=== PATIENT | female | born 1960 | race Caucasian/White ===

== ENCOUNTER 2016-12-23 07:11 | Emergency (ER) | payer BC, OTHER ==
[~2016-12-23 07:11] MED LIST: ASPI81TA45 PO; CALCIUM + VITAMIN D PO; FISH600C PO; MELO15TA4 PO; NICO14DI3 TD; PLAV75TA38 PO; SIMV40TA2 PO
[2016-12-23] MEDS ORDERED: IPRATROPIUM 0.5MG/ALBUTEROL 2.5MG INH SOL UD 3ML (DUONEB)(J7620) As Ordered ONE ×2 (10:08→13:38)
[2016-12-23 10:30] LABS: BASO # 0.1 K/mm3 (0.0-0.2); BASO % 0.6 % (0.0-1.0); EOS # 0.2 K/mm3 (0.0-0.50); EOS % 1.9 % (0.0-3.0); LARGE UNSTAINED CELL # 0.2 K/mm3 (0.0-0.4); LARGE UNSTAINED CELL % 2.1 % (0.0-4.0); LYMPH # 1.7 K/mm3 (1.5-4.5); LYMPH % 16.6 % (24.0-44.0); MEAN CORPUSCULAR HEMOGLOBIN 30.5 pg (27.0-33.0); MEAN CORPUSCULAR HGB CONC 32.3 g/dl (32.0-36.5); MEAN CORPUSCULAR VOLUME 94.4 fl (80.0-96.0); MONO # 0.6 K/mm3 (0.0-0.8); MONO % 6.2 % (0.0-5.0); NEUTROPHILS # 7.3 K/mm3 (1.8-7.7); NEUTROPHILS % 72.7 % (36.0-66.0); PLATELET COUNT, AUTOMATED 279 k/mm3 (150-450); RED CELL DISTRIBUTION WIDTH 13.6 % (11.5-14.5); WHITE BLOOD COUNT 10.1 K/mm3 (4.0-10.0)
[2016-12-23] MEDS ORDERED: methylPREDNISolone INJ 125 MG/2 ML VIAL (J2930) As Ordered ONE (10:57)
[2016-12-23 11:19] LABS: ANION GAP 9 MEQ/L (8-16); BLOOD UREA NITROGEN 12 MG/DL (7-18); CALCIUM LEVEL 9.4 MG/DL (8.5-10.1); CARBON DIOXIDE LEVEL 28 MEQ/L (21-32); CHLORIDE LEVEL 106 MEQ/L (98-107); CREATININE FOR GFR 0.71 MG/DL (0.55-1.02); GLOMERULAR FILTRATION RATE > 60.0 (>51); GLUCOSE, FASTING 105 MG/DL (70-105); SODIUM LEVEL 143 MEQ/L (136-145)
--- NOTE | 2016-12-23 13:26 | REP ---
Chest x-ray: Two views. History: Shortness of breath. Findings: EKG monitoring electrodes overlie the chest. The heart is not enlarged. The aorta is somewhat tortuous. Pulmonary vasculature is not increased. No infiltrate is seen. Pleural angles are sharp. Impression: No active disease. Signed by Eric Quinn MD 12/23/2016 01:26 P
[2016-12-23] MEDS ORDERED: ALBUTEROL 90 MCG/ACT 8GM HFA INHALER As Ordered ONE (15:05)
--- NOTE | 2016-12-23 15:37 | EDDOCDS ---
Physician Documentation [facility] Name: Lily Hernandez Age: 56 yrs Sex: Female : 1960 Arrival Date: 12/23/2016 Time: 07:11 Bed TR3 Private MD: Disposition: 12/23 15:00 Critical Care:. pc Disposition: 12/23/16 15:02 Discharged to Home/Self Care. Impression: Chronic obstructive pulmonary disease with (acute) exacerbation. - Condition is Stable. - Discharge Instructions: Chronic Obstructive Pulmonary Disease, Metered Dose Inhaler with Spacer. - Prescriptions for Prednisone 20 mg Oral Tablet - take 1 tablet by ORAL route as directed Day 1-3: 3 po, day 4-7: 2 po, day 8-10: 1 po; 20 tablet. Albuterol Sulfate 90 mcg/actuation Inhalation HFA Aerosol Inhaler - inhale 2 puff by INHALATION route every 4 hours As needed; 1 Inhaler. - Medication Reconciliation, Local Pharmacy Hours form. - Follow up: [facility]; When: Call to arrange an appointment; Reason: Continuance of care. - Problem is an acute exacerbation. - Symptoms have improved. HPI: 09:53 This 56 yrs old Female presents to ER via Walkin/Carried/Asstd with pc complaints of Cough. 09:53 The history is obtained from the patient, the patient's spouse. She developed a cough pc and sinus congestion 2 weeks ago, without fever or chills, was seen by an urgent care and started on ABX and Tessalon Perles without effect. She continues to have a nonproductive cough and feels SOBOE. She is a former smoker, stopping 1 year ago without prior diagnosis of COPD. At their worst, the symptoms were mild. In the emergency department, the symptoms are unchanged. The patient has not experienced similar symptoms in the past. Historical: - Allergies: No known drug Allergies; - Home Meds: 1. atorvastatin 40 mg oral tab 1 tab once daily 2. metoprolol succinate 25 mg Tb24 1 tab once daily 3. hydrochlorothiazide 12.5 mg Oral tab 1 tab once daily 4. clopidogrel 75 mg oral tab 1 tab once daily 5. fluticasone 50 mg 1 spray each nostril twice daily 6. aspirin 81 mg oral tab once daily 7. Augmentin 875-125 mg Oral tab every 12 hours 8. benzonatate 100 mg oral cap 1 cap 3 times per day as needed (Last dose: 12/22/2016 16:00) - PMHx: Hypertension; Hypercholesterolemia; CVA; - PSHx: ; Uterine biopsy; right hipr eplacement; - The history from nurses notes was reviewed: and elements of the historical information I have obtained differs from that reported to nursing. - Social history: Smoking status: Patient states former smoker of tobacco. No barriers to communication noted, The patient speaks fluent Romanian. - : The pt / caregiver states he / she is on anticoagulants: Plavix. Home medication list is obtained from the patient, [place] import data, pill bottles. - Hospitalizations: : No recent hospitalization is reported. - Exposure Risk Screening:: None identified. - Immunization history:: All immunizations up-to-date. - Family history: Not pertinent. - Social history:: the patient is a former smoker, the patient drinks alcohol. ROS: 09:53 All systems are negative except as listed. pc Exam: 09:53 General Appearance: no acute distress, alert. pc 09:53 EENT: normal eye inspection, ears, nose and throat normal, pharynx normal, mucous membranes moist 09:53 Neck: The exam reveals no acute abnormalities. ROM is normal and painless. No nuchal rigidity is noted.. 09:53 Respiratory: no respiratory distress, Breath sounds: wheezing, throughout, Decreased breath sounds, in the left posterior lower lobe and right posterior lower lobe. 09:53 CVS: regular pulse rate, regular rhythm, normal S1 and S2, no murmurs, strong peripheral pulses, normal capillary refill. 09:53 Abdomen: soft, non-tender, no organomegaly, normal bowel sounds. 09:53 Back: normal inspection. 09:53 Skin: skin color is normal, warm, dry. 09:53 Extremities: The extremities have a grossly normal appearance, are non-tender, without acute ROM abnormalities, no pedal edema. 09:53 Neuro: oriented x 3, cranial nerves normal as tested, no motor deficits, no sensory deficits. 09:53 Psych: normal mood. Vital Signs: 07:59 BP 149 / 95; Pulse 82; Resp 22; Temp 97.4(O); Pulse Ox 90% on R/A; Weight 106.14 kg / kcs 234 lbs (R); Height 5 ft. 7 in. (170.18 cm) (R); Pain 0/10; 08:22 BP 188 / 93 (auto/); mk4 08:24 Pulse 64 MON; Pulse Ox 93% ; mk4 08:36 Pulse 64 MON; Pulse Ox 93% ; mk4 08:37 BP 181 / 84 (auto/); mk4 08:52 BP 204 / 88 (auto/); mk4 08:52 Pulse 58 MON; Pulse Ox 91% ; mk4 09:06 Pulse 72 MON; Pulse Ox 92% ; mk4 09:07 BP 206 / 100 (auto/); mk4 09:22 Pulse 66 MON; Pulse Ox 91% ; mk4 09:22 BP 204 / 88 (auto/); mk4 09:37 BP 171 / 77 (auto/); mk4 09:37 Pulse 70 MON; Pulse Ox 93% ; mk4 10:52 BP 135 / 64 (auto/); mk4 10:54 Pulse 76 MON; Pulse Ox 94% ; mk4 11:07 BP 143 / 76 (auto/); mk4 11:07 Pulse 100 MON; Pulse Ox 98% ; mk4 11:22 BP 141 / 72 (auto/); mk4 11:22 Pulse 60 MON; Pulse Ox 97% ; mk4 11:36 Pulse 58 MON; Pulse Ox 96% ; mk4 11:37 BP 161 / 81 (auto/); mk4 11:52 BP 136 / 62 (auto/); mk4 11:52 Pulse 58 MON; Pulse Ox 95% ; mk4 12:07 BP 129 / 60 (auto/); mk4 12:07 Pulse 74 MON; Pulse Ox 96% ; mk4 12:22 BP 136 / 65 (auto/); mk4 12:22 Pulse 70 MON; Pulse Ox 95% ; mk4 12:37 BP 132 / 64 (auto/); mk4 12:37 Pulse 68 MON; Pulse Ox 95% ; mk4 12:52 BP 118 / 58 (auto/); mk4 12:52 Pulse 72 MON; Pulse Ox 94% ; mk4 13:07 BP 128 / 61 (auto/); mk4 13:07 Pulse 68 MON; Pulse Ox 90% ; mk4 13:22 BP 152 / 79 (auto/); mk4 13:22 Pulse 66 MON; Pulse Ox 89% ; mk4 13:37 BP 159 / 91 (auto/); mk4 13:37 Pulse 68 MON; Pulse Ox 95% ; mk4 13:52 BP 149 / 70 (auto/); mk4 13:52 Pulse 82 MON; Pulse Ox 100% ; mk4 14:07 BP 151 / 70 (auto/); mk4 14:07 Pulse 96 MON; Pulse Ox 98% ; mk4 14:52 BP 154 / 54 (auto/); mk4 15:00 Pulse 102 MON; Resp 22; Temp 97.8(O); Pulse Ox 93% ; mk4 07:59 Body Mass Index 36.65 (106.14 kg, 170.18 cm) kcs MDM: 09:41 -Blood Culture (Adults Only), peripheral from different site, or from device/port/PICC pc etc. if present ordered. 09:41 Waiter/Waitress Cabin Class/Pulse Ox/q 15 min VS ordered. pc 09:41 IV Saline Lock ordered. pc 09:41 Rhythm Strip to chart ordered. pc 09:41 Oxygen 2L via NC, titrate to maintain PO >95% ordered. pc 09:41 Solu-MEDROL 125 mg IVP once ordered. pc 09:41 Albuterol-Ipratropium 1 neb Nebulizer every 20 minutes x3 ordered. pc 09:41 Call Respiratory ordered. pc 09:41 Obtain sample by nasopharyngeal swab ordered. pc 09:41 B-Type Natiuretic Peptide Ordered. EDMS 09:41 Basic Metabolic Profile Ordered. EDMS 09:41 CBC with Diff Ordered. EDMS 09:41 Cardiac Injury Profile Ordered. EDMS 09:42 Troponin Ordered. EDMS 09:42 -Blood Culture Ordered. EDMS 09:42 Chest, 2 View (pa\E\lat) Ordered. EDMS 09:42 ECG WITH READING ER PHYS+CARDIAG ordered. EDMS 09:42 -Influenza A&B Rapid Antigen - Nose Ordered. EDMS 09:42 Call Respiratory complete. jlf 09:44 -Blood Culture (Adults Only), peripheral from different site, or from device/port/PICC jlf etc. if present complete. 09:46 BLOOD CULTURES Ordered. EDMS 09:53 Differential Diagnosis: bronchitis with bronchospasm, r/o COPD or pneumonia. Plan: pc meds, nebs, EKG, imaging, labs. 09:58 Test interpretation: EKG. pc 10:44 [facility] Payment Agreement was scanned into Pocket Change Card and attached to record. jp5 10:44 Financial registration complete. jp5 10:53 CBC with Diff Reviewed. pc 10:53 B-Type Natiuretic Peptide Reviewed. pc 10:53 -Influenza A&B Rapid Antigen - Nose Reviewed. pc 11:33 Basic Metabolic Profile Reviewed. pc 11:33 Cardiac Injury Profile Reviewed. pc 11:33 Troponin Reviewed. pc 13:21 Albuterol-Ipratropium 1 neb Nebulizer every 20 minutes x3 ordered. pc 13:21 Call Respiratory ordered. pc 13:23 Call Respiratory complete. mk4 15:00 Data reviewed: old medical records, vital signs, nurses notes, lab test results, all pc radiology studies and available results. Test interpretation: LAB - all labs as ordered have been reviewed, interpreted and considered in the overall management of the clinical presentation; X-RAY - interpreted by Radiologist and personally reviewed, 2 view chest, chronic obstructive pulmonary disease pattern. The patient has been re-examined and re-evaluated. The patient's symptoms have markedly improved after treatment, with her PO at 96% at rest, her air entry normal and only an occasional wheeze at the bases. Disposition: The historical points, examination findings, and any diagnostic results supporting the provided diagnosis, were discussed with the patient or legal guardian. The need for outpatient follow up with the provider listed on their discharge instructions was discussed. They were encouraged to return to [facility], or the nearest ED, if symptoms worsen/persist, or for any other questions/concerns. 15:03 MDI teaching with Spacer ordered. pc 15:03 Ventolin Inhaler 2 puffs Inhalation once ordered. EC:58 Rate is 67 beats/min. Rhythm is regular, Normal Sinus Rhythm. QRS [place] is Normal. [place] pc interval is normal. QRS interval is normal. QT interval is normal. No Q waves. T waves are Normal. ST Segment is elevated in leads I, II, III, aVL, aVF, V4, V5, V6. Clinical impression: Normal Sinus Rhythm and ST-T changes consistent with early repolarization. Administered Medications: 10:15 Drug: Albuterol-Ipratropium 1 neb [ipratropium-albuterol 0.5 mg-3 mg(2.5 mg base)/3 mL js11 nebulization soln (1 neb)] Route: Nebulizer; 10:30 Drug: Solu-MEDROL 125 mg [Solu-Medrol 500 mg intravenous solution (125 mg)] Route: IVP; mk4 Site: left antecubital; 10:35 Drug: Albuterol-Ipratropium 1 neb [ipratropium-albuterol 0.5 mg-3 mg(2.5 mg base)/3 mL js11 nebulization soln (1 neb)] Route: Nebulizer; 10:50 Drug: Albuterol-Ipratropium 1 neb [ipratropium-albuterol 0.5 mg-3 mg(2.5 mg base)/3 mL js11 nebulization soln (1 neb)] Route: Nebulizer; 13:42 Drug: Albuterol-Ipratropium 1 neb [ipratropium-albuterol 0.5 mg-3 mg(2.5 mg base)/3 mL cs15 nebulization soln (1 neb)] Route: Nebulizer; 14:01 Drug: Albuterol-Ipratropium 1 neb [ipratropium-albuterol 0.5 mg-3 mg(2.5 mg base)/3 mL cs15 nebulization soln (1 neb)] Route: Nebulizer; 14:13 Drug: Albuterol-Ipratropium 1 neb [ipratropium-albuterol 0.5 mg-3 mg(2.5 mg base)/3 mL cs15 nebulization soln (1 neb)] Route: Nebulizer; 15:14 Drug: Ventolin 2 puffs [Ventolin HFA 90 mcg/actuation aerosol inhaler (2 puffs)] Route: 4 Inhalation; Critical Care Time: 15:00 Critical care time: Bedside Care: 30 minutes, Family Intervention: 10 minutes. Total pc time: 40 minutes Signatures: Dispatcher [employer] EDTeddy Finney MD MD pc Sleeman, Kacey, RN RN kcs King, Margaret, RN RN mk4 Jolie Vale PCA PCA jlf Price, Jennalee jp5 Basilio Blount js11 Jose Bruno RT cs15 The chart was reviewed and I authenticate all verbal orders and agree with the evaluation and treatment provided.Corrections: (The following items were deleted from the chart) 08:26 07:59 The pt / caregiver states he / she is not on anticoagulants. pablo shah 09:57 07:59 PMHx: CAD; pablo pc Attachments: 10:44 [facility] Payment Agreement jp5 MTDD
--- NOTE | 2016-12-23 15:37 | EDDOCDS ---
Nurse's Notes [facility] Name: Lily Hernandez Age: 56 yrs Sex: Female : 1960 Arrival Date: 12/23/2016 Time: 07:11 Bed TR3 Private MD: Diagnosis: Chronic obstructive pulmonary disease with (acute) exacerbation Presentation: 12/23 07:50 Presenting complaint: Patient states: she has had a cough for 2 weeks - was at [facility] - started on antibiotics and cough meds - diagnosed with URI and sinusitis - last night had more difficulty breathing and chest heaviness - feels like she is not getting any better. Adult Sepsis Screening: The patient does not have new or worsening altered mentation. Patient has a respiratory rate of greater than or equal to 22 (1 point). Systolic blood pressure is greater than 100. Patient has a qSOFA score of 0- Negative Sepsis Screen. Suicide/Homicide risk assessment- the patient denies having any suicidal and/or homicidal ideations and does not present with any other emotional, behavioral or mental health complaints. Status: Patient is not a health services administrator or dependent. Transition of care: patient was not received from another setting of care. 07:50 Method Of Arrival: Walkin/Carried/Asstd kcs 07:59 Acuity: PJ Level 3 kcs Triage Assessment: 07:59 General: Appears comfortable, well developed, well nourished, well groomed, Behavior is kcs cooperative, pleasant. Pain: Denies pain. HIV screening NA for this visit Offered previously. Neurological: Level of Consciousness is awake, alert. Respiratory: Airway is patent Respiratory effort is even, unlabored, Respiratory pattern is regular, symmetrical. Derm: Skin is intact, is healthy with good turgor, Skin is dry, Skin is normal. Historical: - Allergies: No known drug Allergies; - Home Meds: 1. atorvastatin 40 mg oral tab 1 tab once daily 2. metoprolol succinate 25 mg Tb24 1 tab once daily 3. hydrochlorothiazide 12.5 mg Oral tab 1 tab once daily 4. clopidogrel 75 mg oral tab 1 tab once daily 5. fluticasone 50 mg 1 spray each nostril twice daily 6. aspirin 81 mg oral tab once daily 7. Augmentin 875-125 mg Oral tab every 12 hours 8. benzonatate 100 mg oral cap 1 cap 3 times per day as needed (Last dose: 12/22/2016 16:00) - PMHx: Hypertension; Hypercholesterolemia; CVA; - PSHx: ; Uterine biopsy; right hipr eplacement; - The history from nurses notes was reviewed: and elements of the historical information I have obtained differs from that reported to nursing. - Social history: Smoking status: Patient states former smoker of tobacco. No barriers to communication noted, The patient speaks fluent Angolan. - : The pt / caregiver states he / she is on anticoagulants: Plavix. Home medication list is obtained from the patient, [place] import data, pill bottles. - Hospitalizations: : No recent hospitalization is reported. - Exposure Risk Screening:: None identified. - Immunization history:: All immunizations up-to-date. - Family history: Not pertinent. - Social history:: the patient is a former smoker, the patient drinks alcohol. Screenin:11 Screening information is obtained from the patient. Fall risk: No risks identified. mk4 Assistance ADL's: requires no assistance with activities of daily living. Abuse/DV Screen: The patient / caregiver reports he/she is: not in a situation that causes fear, pain or injury. Nutritional screening: No deficits noted. Advance Directives: Currently, there is no health care proxy. There is no active DNR order. There is There is no Power of Trim Mechanic. Advance directive information has not previously been placed in an [facility] medical record. Further advance directive information is declined. home support is adequate. Assessment: 09:00 General: Appears in no apparent distress. Pain: Denies pain. Respiratory: Airway is mk4 patent Respiratory effort is even, labored, Respiratory pattern is regular, Reports cough that is non-productive, hacking, persistent since 8-9 days ago oxygen applied at 2 l nc. 11:09 General: Appears in no apparent distress. Respiratory: Airway is patent Respiratory mk4 effort is labored, Respiratory pattern is regular, Breath sounds with rhonchi inspiratory expiratory bilaterally. 11:09 Neurological: Level of Consciousness is awake, Oriented to person, place, time. mk4 Respiratory: Reports cough that is non-productive, since 9 days ago. Derm: Skin is intact, is healthy with good turgor, Skin is pink, warm & dry. 13:00 General: Appears in no apparent distress, comfortable, Behavior is cooperative. mk4 Respiratory: Airway is patent Respiratory effort is even. 13:25 General: Appears in no apparent distress, oxygen removed and pt sao2 dropped to 88 % mk4 oxygen placed back on Dr Sadler at bedside and aware. 14:22 General: Appears in no apparent distress, comfortable. Respiratory: Airway is patent mk4 Respiratory effort is labored, Respiratory pattern is regular, tachypnea. 14:42 General: Appears in no apparent distress, comfortable. mk4 15:32 General: Appears in no apparent distress, comfortable, Behavior is cooperative. mk4 Respiratory: Airway is patent Respiratory effort is even, unlabored, oxygen level 94-95 on room air after second set of nebs, albuterol neb with spacer instructions provided. Vital Signs: 07:59 BP 149 / 95; Pulse 82; Resp 22; Temp 97.4(O); Pulse Ox 90% on R/A; Weight 106.14 kg kcs (R); Height 5 ft. 7 in. (170.18 cm) (R); Pain 0/10; 08:22 BP 188 / 93 (auto/); mk4 08:24 Pulse 64 MON; Pulse Ox 93% ; mk4 08:36 Pulse 64 MON; Pulse Ox 93% ; mk4 08:37 BP 181 / 84 (auto/); mk4 08:52 BP 204 / 88 (auto/); mk4 08:52 Pulse 58 MON; Pulse Ox 91% ; mk4 09:06 Pulse 72 MON; Pulse Ox 92% ; mk4 09:07 BP 206 / 100 (auto/); mk4 09:22 Pulse 66 MON; Pulse Ox 91% ; mk4 09:22 BP 204 / 88 (auto/); mk4 09:37 BP 171 / 77 (auto/); mk4 09:37 Pulse 70 MON; Pulse Ox 93% ; mk4 10:52 BP 135 / 64 (auto/); mk4 10:54 Pulse 76 MON; Pulse Ox 94% ; mk4 11:07 BP 143 / 76 (auto/); mk4 11:07 Pulse 100 MON; Pulse Ox 98% ; mk4 11:22 BP 141 / 72 (auto/); mk4 11:22 Pulse 60 MON; Pulse Ox 97% ; mk4 11:36 Pulse 58 MON; Pulse Ox 96% ; mk4 11:37 BP 161 / 81 (auto/); mk4 11:52 BP 136 / 62 (auto/); mk4 11:52 Pulse 58 MON; Pulse Ox 95% ; mk4 12:07 BP 129 / 60 (auto/); mk4 12:07 Pulse 74 MON; Pulse Ox 96% ; mk4 12:22 BP 136 / 65 (auto/); mk4 12:22 Pulse 70 MON; Pulse Ox 95% ; mk4 12:37 BP 132 / 64 (auto/); mk4 12:37 Pulse 68 MON; Pulse Ox 95% ; mk4 12:52 BP 118 / 58 (auto/); mk4 12:52 Pulse 72 MON; Pulse Ox 94% ; mk4 13:07 BP 128 / 61 (auto/); mk4 13:07 Pulse 68 MON; Pulse Ox 90% ; mk4 13:22 BP 152 / 79 (auto/); mk4 13:22 Pulse 66 MON; Pulse Ox 89% ; mk4 13:37 BP 159 / 91 (auto/); mk4 13:37 Pulse 68 MON; Pulse Ox 95% ; mk4 13:52 BP 149 / 70 (auto/); mk4 13:52 Pulse 82 MON; Pulse Ox 100% ; mk4 14:07 BP 151 / 70 (auto/); mk4 14:07 Pulse 96 MON; Pulse Ox 98% ; mk4 14:52 BP 154 / 54 (auto/); mk4 15:00 Pulse 102 MON; Resp 22; Temp 97.8(O); Pulse Ox 93% ; mk4 07:59 Body Mass Index 36.65 (106.14 kg, 170.18 cm) [facility] Vitals: 07:59 Log In Time: December 23, 2016 at 07:13. kcs ED Course: 07:12 Patient visited by Comfort Faith Reg. hs2 07:12 Patient moved to Waiting hs2 07:53 Triage Initiated kcs 08:02 Patient moved to 15 kcs 08:25 Patient visited by Laura Chavez PCA. ct3 08:58 Patient visited by Radha Feldman RN. mk4 08:58 Teddy Sadler MD is Attending Physician. pc 09:00 The patient / caregiver is instructed regarding the plan of care and ED course. Cardiac mk4 monitor on. Pulse ox on. NIBP on. 09:00 Inserted saline lock: 20 gauge in right wrist. mk4 09:33 Patient visited by Teddy Sadler MD. pc 09:57 Patient visited by Santa Manjarrez. lr2 09:57 EKG done. (by ED staff). Reviewed by Teddy Sadler MD. lr2 10:11 -Influenza A&B Rapid Antigen - Nose Sent. mk4 10:11 -Blood Culture Sent. mk4 10:11 B-Type Natiuretic Peptide Sent. mk4 10:11 Basic Metabolic Profile Sent. mk4 10:11 CBC with Diff Sent. mk4 10:11 Cardiac Injury Profile Sent. mk4 10:11 Troponin Sent. mk4 10:42 Patient visited by Radha Feldman, DAVID. mk4 10:44 [facility] Payment Agreement was scanned into [employer] and attached to record. jp5 10:51 BLOOD CULTURES Sent. ct3 11:12 Patient visited by Laura Chavez PCA. ct3 11:48 Patient visited by Radha Feldman, DAVID. mk4 12:19 Patient visited by Radha Feldman RN. mk4 12:54 Patient visited by Radha Feldman RN. mk4 13:25 Patient visited by Radha Feldman RN. mk4 13:37 Chest, 2 View (pa\E\lat) Returned. EDMS 14:13 Patient visited by Antionette Sarmiento RN. srm 15:00 Discontinued IV lock bleeding controlled, pressure dressing applied. No procedures done mk4 that require assistance. 15:01 [facility] Emerita Grey is Referral Physician. pc 15:34 Patient moved to TR3 mdr Administered Medications: 10:15 Drug: Albuterol-Ipratropium 1 neb [ipratropium-albuterol 0.5 mg-3 mg(2.5 mg base)/3 mL js11 nebulization soln (1 neb)] Route: Nebulizer; 10:30 Drug: Solu-MEDROL 125 mg [Solu-Medrol 500 mg intravenous solution (125 mg)] Route: IVP; mk4 Site: left antecubital; 10:35 Drug: Albuterol-Ipratropium 1 neb [ipratropium-albuterol 0.5 mg-3 mg(2.5 mg base)/3 mL js11 nebulization soln (1 neb)] Route: Nebulizer; 10:50 Drug: Albuterol-Ipratropium 1 neb [ipratropium-albuterol 0.5 mg-3 mg(2.5 mg base)/3 mL js11 nebulization soln (1 neb)] Route: Nebulizer; 13:42 Drug: Albuterol-Ipratropium 1 neb [ipratropium-albuterol 0.5 mg-3 mg(2.5 mg base)/3 mL cs15 nebulization soln (1 neb)] Route: Nebulizer; 14:01 Drug: Albuterol-Ipratropium 1 neb [ipratropium-albuterol 0.5 mg-3 mg(2.5 mg base)/3 mL cs15 nebulization soln (1 neb)] Route: Nebulizer; 14:13 Drug: Albuterol-Ipratropium 1 neb [ipratropium-albuterol 0.5 mg-3 mg(2.5 mg base)/3 mL cs15 nebulization soln (1 neb)] Route: Nebulizer; 15:14 Drug: Ventolin 2 puffs [Ventolin HFA 90 mcg/actuation aerosol inhaler (2 puffs)] Route: mk4 Inhalation; Intake: 12:06 PO: 240.00ml (Coffee); Total: 240.00ml. lr2 RT: 10:15 Initial Med Neb Given as ordered Patient was instructed and evaluated on procedure js11 Patient tolerated procedure well without adverse effect. Oxygen is room air. Respiratory: Breath sounds with wheezes bilaterally. at expiration. 10:35 Subsequent Med Neb Given as ordered Patient tolerated procedure well without adverse js11 effect. Respiratory: Breath sounds with wheezes bilaterally. at expiration. 10:50 Subsequent Med Neb Given as ordered Patient tolerated procedure well without adverse js11 effect. Respiratory: Breath sounds with wheezes bilaterally. at expiration. 13:42 Subsequent Med Neb Given as ordered. O2 via nasal cannula \T\ 2L/min. Respiratory: Breath cs15 sounds with crackles in left posterior lower lobe and right posterior lower lobe Breath sounds with wheezes bilaterally. at expiration. 14:13 Respiratory: Breath sounds with crackles in left posterior lower lobe and right cs15 posterior lower lobe. Order Results: Lab Order: B-Type Natiuretic Peptide; SPEC'M 12/23/16 09:48 Test: BRAIN NATRIURETIC PEPTIDE; Value: 36.7; Range: <100; Units: PG/ML; Status: F Lab Order: Basic Metabolic Profile; SPEC'M 12/23/16 10:49 Test: GLUCOSE, FASTING; Value: 105; Range: 70-105; Units: MG/DL; Status: F Test: BLOOD UREA NITROGEN; Value: 12; Range: 7-18; Units: MG/DL; Status: F Test: CREATININE FOR GFR; Value: 0.71; Range: 0.55-1.02; Units: MG/DL; Status: F Test: GLOMERULAR FILTRATION RATE; Value: > 60.0; Range: >51; Status: F Test: SODIUM LEVEL; Value: 143; Range: 136-145; Units: MEQ/L; Status: F Test: POTASSIUM SERUM; Value: 4.0; Range: 3.5-5.1; Units: MEQ/L; Status: F Test: CHLORIDE LEVEL; Value: 106; Range: 98-107; Units: MEQ/L; Status: F Test: CARBON DIOXIDE LEVEL; Value: 28; Range: 21-32; Units: MEQ/L; Status: F Test: ANION GAP; Value: 9; Range: 8-16; Units: MEQ/L; Status: F Test: CALCIUM LEVEL; Value: 9.4; Range: 8.5-10.1; Units: MG/DL; Status: F Test Note: ; Units are mL/min/1.73 m2 Chronic Kidney Disease Staging per NKF: Stage I & II GFR >=60 Normal to Mildly Decreased Stage III GFR 30-59 Moderately Decreased Stage IV GFR 15-29 Severely Decreased Stage V GFR <15 Very Little GFR Left ESRD GFR <15 on UNDERWRITING SERVICE REPRESENTATIVE Lab Order: CBC with Diff; SPEC'M 12/23/16 09:48 Test: WHITE BLOOD COUNT; Value: 10.1; Range: 4.0-10.0; Abnormal: Above high normal; Units: K/mm3; Status: F Test: RED BLOOD COUNT; Value: 4.86; Range: 4.00-5.40; Units: M/mm3; Status: F Test: HEMOGLOBIN; Value: 14.9; Range: 12.0-16.0; Units: g/dl; Status: F Test: HEMATOCRIT; Value: 45.9; Range: 36.0-47.0; Units: %; Status: F Test: MEAN CORPUSCULAR VOLUME; Value: 94.4; Range: 80.0-96.0; Units: fl; Status: F Test: MEAN CORPUSCULAR HEMOGLOBIN; Value: 30.5; Range: 27.0-33.0; Units: pg; Status: F Test: MEAN CORPUSCULAR HGB CONC; Value: 32.3; Range: 32.0-36.5; Units: g/dl; Status: F Test: RED CELL DISTRIBUTION WIDTH; Value: 13.6; Range: 11.5-14.5; Units: %; Status: F Test: PLATELET COUNT, AUTOMATED; Value: 279; Range: 150-450; Units: k/mm3; Status: F Test: NEUTROPHILS %; Value: 72.7; Range: 36.0-66.0; Abnormal: Above high normal; Units: %; Status: F Test: LYMPH %; Value: 16.6; Range: 24.0-44.0; Abnormal: Below low normal; Units: %; Status: F Test: MONO %; Value: 6.2; Range: 0.0-5.0; Abnormal: Above high normal; Units: %; Status: F Test: EOS %; Value: 1.9; Range: 0.0-3.0; Units: %; Status: F Test: BASO %; Value: 0.6; Range: 0.0-1.0; Units: %; Status: F Test: LARGE UNSTAINED CELL %; Value: 2.1; Range: 0.0-4.0; Units: %; Status: F Test: NEUTROPHILS #; Value: 7.3; Range: 1.8-7.7; Units: K/mm3; Status: F Test: LYMPH #; Value: 1.7; Range: 1.5-4.5; Units: K/mm3; Status: F Test: MONO #; Value: 0.6; Range: 0.0-0.8; Units: K/mm3; Status: F Test: EOS #; Value: 0.2; Range: 0.0-0.50; Units: K/mm3; Status: F Test: BASO #; Value: 0.1; Range: 0.0-0.2; Units: K/mm3; Status: F Test: LARGE UNSTAINED CELL #; Value: 0.2; Range: 0.0-0.4; Units: K/mm3; Status: F Lab Order: Cardiac Injury Profile; SPEC'M 12/23/16 10:49 Test: CPK CREATINE PHOSPHOKINASE; Value: 152; Range: 26-192; Units: U/L; Status: F Test: CK-MB VALUE MASS; Value: 2.1; Range: 0.0-3.6; Units: NG/ML; Status: F Test: MB/CK RELATIVE INDEX; Value: 1.38; Range: < OR =4; Status: F Test Note: ; DIAGNOSIS CRITERIA MMB ng/ml Relative Index (RI) NON-AMI < or = 5 N/A FORD ZONE > 5 < or = 4 AMI > 5 > 4 Lab Order: Troponin; SPEC'M 12/23/16 10:49 Test: TROPONIN I; Value: < 0.02; Range: < 0.10; Units: NG/ML; Status: F Test Note: ; Troponin I Reference Interval for Mobile [employer] 7 LOCI: 99th Percentile= 0.00-0.045 ng/ml Risk Stratification: <= 0.10 ng/ml Decreased Risk for Adverse Clinical Events. 0.10-1.50 ng/ml Increased Risk for Adverse Clinical Events. Evaluation of additional criterion and/or repeat testing in 2-6 hours is suggested to rule out myocardial damage. >= 1.50 ng/ml Indicative of Myocardial Injury. Lab Order: -Influenza A&B Rapid Antigen - Nose; SPEC'M 12/23/16 09:53 Test: INFLUENZA A RAPID SCR by ICA; Value: INFLUENZA A RESULTS NEGATIVE; Status: F Test: INFLUENZA A RAPID SCR by ICA; Value: Comments:; Status: F Test: INFLUENZA B RAPID SCR by ICA; Value: INFLUENZA B RESULTS NEGATIVE; Status: F Test Note: ; The Influenza test is a direct rapid immunoassay for the qualitative detection of Influenza viral antigen. Cell culture (Viral Culture) testing should be considered to confirm NEGATIVE results and to assist in detecting other viruses that can provide similar clinical symptoms. Please contact the lab within 24 hours ([phone]) if confirmatory testing is desired. Radiology Order: Chest, 2 View (pa\E\lat) Test: Chest, 2 View (pa\E\lat) REASON FOR EXAMINATION: Shortness of Breath; Chest x-ray: Two views.; ; History: Shortness of breath.; ; Findings: EKG monitoring electrodes overlie the chest. The heart is not; enlarged. The aorta is somewhat tortuous. Pulmonary vasculature is not; increased. No infiltrate is seen. Pleural angles are sharp.; ; Impression:; ; No active disease.; ; ; Signed by; Eric Quinn MD 12/23/2016 01:26 P; Outcome: 15:00 Discharge Assessment: Patient awake, alert and oriented x 3. No cognitive and/or mk4 functional deficits noted. Patient verbalized understanding of disposition instructions. Patient awake and alert. Discharge Assessment: patient administered narcotics - no. The following High Risk Discharge criteria are identified: None. Discharged to home ambulatory. Condition: stable Condition: improved. Discharge instructions given to patient, Instructed on discharge instructions, inhaler with spacer Prescriptions given X 2. No special radiology studies were completed. Property sent home with patient. 15:02 Discharge ordered by Provider. pc 15:35 Patient left the ED. mk4 Signatures: Dispatcher [employer] EDMS Teddy Sadler MD MD pc Sleeman, Kacey RN RN Antionette Nazario RN RN srm Laura Chavez, MEDICAL COLLECTIONS SPECIALIST MEDICAL COLLECTIONS SPECIALIST ct3 Basilio Blount js11 Radha Feldman RN RN [email or web address] Guzman Harris jp5 Javid Valles, MEDICAL COLLECTIONS SPECIALIST MEDICAL COLLECTIONS SPECIALIST mdr Jose Bruno,RT RT cs15 Comfort Faith, Reg Reg hs2 Santa Manjarrez lr2 Corrections: (The following items were deleted from the chart) 08:02 07:50 Acuity: PJ Level 4 kcs kcs 08:26 07:59 The pt / caregiver states he / she is not on anticoagulants. kcs kcs 09:57 07:59 PMHx: CAD; kcs pc 11:11 09:00 Respiratory: Airway is patent Respiratory effort is even, labored, Respiratory mk4 pattern is regular, Reports cough that is non-productive, hacking, persistent since 8-9 days ago mk4 MTDD
--- NOTE | 2016-12-23 20:57 | ECGEPIP ---
Stationary ECG Study [facility] - ED Test Date: 2016-12-23 Pat Name: FELIPE LESTER Department: Room: - Gender: F Instructional Supervisor: : 1960 Requested By: Teddy Wilkerson Order Number: [id number] Reading MD: Harmony Rousseau Measurements Intervals Dagmar Rate: 66 P: 40 OR: 178 QRS: 62 QRSD: 72 T: 68 QT: 394 QTc: 415 Interpretive Statements SINUS RHYTHM NSTTW ABNORMALITY DECREASED RATE 01/19/15 Electronically Signed On 12-23-2016 20:56:48 EST by Harmony Rousseau
--- NOTE | 2016-12-25 16:36 | EDDOCDS ---
Physician Documentation [facility] Name: Lily Hernandez Age: 56 yrs Sex: Female : 1960 Arrival Date: 12/23/2016 Time: 07:11 Bed TR3 Private MD: Disposition: 12/23 15:00 Critical Care:. pc Disposition: 12/23/16 15:02 Discharged to Home/Self Care. Impression: Chronic obstructive pulmonary disease with (acute) exacerbation. - Condition is Stable. - Discharge Instructions: Chronic Obstructive Pulmonary Disease, Metered Dose Inhaler with Spacer. - Prescriptions for Prednisone 20 mg Oral Tablet - take 1 tablet by ORAL route as directed Day 1-3: 3 po, day 4-7: 2 po, day 8-10: 1 po; 20 tablet. Albuterol Sulfate 90 mcg/actuation Inhalation HFA Aerosol Inhaler - inhale 2 puff by INHALATION route every 4 hours As needed; 1 Inhaler. - Medication Reconciliation, Local Pharmacy Hours form. - Follow up: [facility] [place]; When: Call to arrange an appointment; Reason: Continuance of care. - Problem is an acute exacerbation. - Symptoms have improved. HPI: 09:53 This 56 yrs old Female presents to ER via Walkin/Carried/Asstd with pc complaints of Cough. 09:53 The history is obtained from the patient, the patient's spouse. She developed a cough pc and sinus congestion 2 weeks ago, without fever or chills, was seen by an urgent care and started on ABX and Tessalon Perles without effect. She continues to have a nonproductive cough and feels SOBOE. She is a former smoker, stopping 1 year ago without prior diagnosis of COPD. At their worst, the symptoms were mild. In the emergency department, the symptoms are unchanged. The patient has not experienced similar symptoms in the past. Historical: - Allergies: No known drug Allergies; - Home Meds: 1. atorvastatin 40 mg oral tab 1 tab once daily 2. metoprolol succinate 25 mg Tb24 1 tab once daily 3. hydrochlorothiazide 12.5 mg Oral tab 1 tab once daily 4. clopidogrel 75 mg oral tab 1 tab once daily 5. fluticasone 50 mg 1 spray each nostril twice daily 6. aspirin 81 mg oral tab once daily 7. Augmentin 875-125 mg Oral tab every 12 hours 8. benzonatate 100 mg oral cap 1 cap 3 times per day as needed (Last dose: 12/22/2016 16:00) - PMHx: Hypertension; Hypercholesterolemia; CVA; - PSHx: ; Uterine biopsy; right hipr eplacement; - The history from nurses notes was reviewed: and elements of the historical information I have obtained differs from that reported to nursing. - Social history: Smoking status: Patient states former smoker of tobacco. No barriers to communication noted, The patient speaks fluent Jordanian. - : The pt / caregiver states he / she is on anticoagulants: Plavix. Home medication list is obtained from the patient, Retroficiency import data, pill bottles. - Hospitalizations: : No recent hospitalization is reported. - Exposure Risk Screening:: None identified. - Immunization history:: All immunizations up-to-date. - Family history: Not pertinent. - Social history:: the patient is a former smoker, the patient drinks alcohol. ROS: 09:53 All systems are negative except as listed. pc Exam: 09:53 General Appearance: no acute distress, alert. pc 09:53 EENT: normal eye inspection, ears, nose and throat normal, pharynx normal, mucous membranes moist 09:53 Neck: The exam reveals no acute abnormalities. ROM is normal and painless. No nuchal rigidity is noted.. 09:53 Respiratory: no respiratory distress, Breath sounds: wheezing, throughout, Decreased breath sounds, in the left posterior lower lobe and right posterior lower lobe. 09:53 CVS: regular pulse rate, regular rhythm, normal S1 and S2, no murmurs, strong peripheral pulses, normal capillary refill. 09:53 Abdomen: soft, non-tender, no organomegaly, normal bowel sounds. 09:53 Back: normal inspection. 09:53 Skin: skin color is normal, warm, dry. 09:53 Extremities: The extremities have a grossly normal appearance, are non-tender, without acute ROM abnormalities, no pedal edema. 09:53 Neuro: oriented x 3, cranial nerves normal as tested, no motor deficits, no sensory deficits. 09:53 Psych: normal mood. Vital Signs: 07:59 BP 149 / 95; Pulse 82; Resp 22; Temp 97.4(O); Pulse Ox 90% on R/A; Weight 106.14 kg / kcs 234 lbs (R); Height 5 ft. 7 in. (170.18 cm) (R); Pain 0/10; 08:22 BP 188 / 93 (auto/); mk4 08:24 Pulse 64 MON; Pulse Ox 93% ; mk4 08:36 Pulse 64 MON; Pulse Ox 93% ; mk4 08:37 BP 181 / 84 (auto/); mk4 08:52 BP 204 / 88 (auto/); mk4 08:52 Pulse 58 MON; Pulse Ox 91% ; mk4 09:06 Pulse 72 MON; Pulse Ox 92% ; mk4 09:07 BP 206 / 100 (auto/); mk4 09:22 Pulse 66 MON; Pulse Ox 91% ; mk4 09:22 BP 204 / 88 (auto/); mk4 09:37 BP 171 / 77 (auto/); mk4 09:37 Pulse 70 MON; Pulse Ox 93% ; mk4 10:52 BP 135 / 64 (auto/); mk4 10:54 Pulse 76 MON; Pulse Ox 94% ; mk4 11:07 BP 143 / 76 (auto/); mk4 11:07 Pulse 100 MON; Pulse Ox 98% ; mk4 11:22 BP 141 / 72 (auto/); mk4 11:22 Pulse 60 MON; Pulse Ox 97% ; mk4 11:36 Pulse 58 MON; Pulse Ox 96% ; mk4 11:37 BP 161 / 81 (auto/); mk4 11:52 BP 136 / 62 (auto/); mk4 11:52 Pulse 58 MON; Pulse Ox 95% ; mk4 12:07 BP 129 / 60 (auto/); mk4 12:07 Pulse 74 MON; Pulse Ox 96% ; mk4 12:22 BP 136 / 65 (auto/); mk4 12:22 Pulse 70 MON; Pulse Ox 95% ; mk4 12:37 BP 132 / 64 (auto/); mk4 12:37 Pulse 68 MON; Pulse Ox 95% ; mk4 12:52 BP 118 / 58 (auto/); mk4 12:52 Pulse 72 MON; Pulse Ox 94% ; mk4 13:07 BP 128 / 61 (auto/); mk4 13:07 Pulse 68 MON; Pulse Ox 90% ; mk4 13:22 BP 152 / 79 (auto/); mk4 13:22 Pulse 66 MON; Pulse Ox 89% ; mk4 13:37 BP 159 / 91 (auto/); mk4 13:37 Pulse 68 MON; Pulse Ox 95% ; mk4 13:52 BP 149 / 70 (auto/); mk4 13:52 Pulse 82 MON; Pulse Ox 100% ; mk4 14:07 BP 151 / 70 (auto/); mk4 14:07 Pulse 96 MON; Pulse Ox 98% ; mk4 14:52 BP 154 / 54 (auto/); mk4 15:00 Pulse 102 MON; Resp 22; Temp 97.8(O); Pulse Ox 93% ; mk4 07:59 Body Mass Index 36.65 (106.14 kg, 170.18 cm) kcs MDM: 09:41 -Blood Culture (Adults Only), peripheral from different site, or from device/port/PICC pc etc. if present ordered. 09:41 Principal Network Architect/Pulse Ox/q 15 min VS ordered. pc 09:41 IV Saline Lock ordered. pc 09:41 Rhythm Strip to chart ordered. pc 09:41 Oxygen 2L via NC, titrate to maintain PO >95% ordered. pc 09:41 Solu-MEDROL 125 mg IVP once ordered. pc 09:41 Albuterol-Ipratropium 1 neb Nebulizer every 20 minutes x3 ordered. pc 09:41 Call Respiratory ordered. pc 09:41 Obtain sample by nasopharyngeal swab ordered. pc 09:41 B-Type Natiuretic Peptide Ordered. EDMS 09:41 Basic Metabolic Profile Ordered. EDMS 09:41 CBC with Diff Ordered. EDMS 09:41 Cardiac Injury Profile Ordered. EDMS 09:42 Troponin Ordered. EDMS 09:42 -Blood Culture Ordered. EDMS 09:42 Chest, 2 View (pa\E\lat) Ordered. EDMS 09:42 ECG WITH READING ER PHYS+CARDIAG ordered. EDMS 09:42 -Influenza A&B Rapid Antigen - Nose Ordered. EDMS 09:42 Call Respiratory complete. jlf 09:44 -Blood Culture (Adults Only), peripheral from different site, or from device/port/PICC jlf etc. if present complete. 09:46 BLOOD CULTURES Ordered. EDMS 09:53 Differential Diagnosis: bronchitis with bronchospasm, r/o COPD or pneumonia. Plan: pc meds, nebs, EKG, imaging, labs. 09:58 Test interpretation: EKG. pc 10:44 [facility] Payment Agreement was scanned into [employer] and attached to record. jp5 10:44 Financial registration complete. jp5 10:53 CBC with Diff Reviewed. pc 10:53 B-Type Natiuretic Peptide Reviewed. pc 10:53 -Influenza A&B Rapid Antigen - Nose Reviewed. pc 11:33 Basic Metabolic Profile Reviewed. pc 11:33 Cardiac Injury Profile Reviewed. pc 11:33 Troponin Reviewed. pc 13:21 Albuterol-Ipratropium 1 neb Nebulizer every 20 minutes x3 ordered. pc 13:21 Call Respiratory ordered. pc 13:23 Call Respiratory complete. mk4 15:00 Data reviewed: old medical records, vital signs, nurses notes, lab test results, all pc radiology studies and available results. Test interpretation: LAB - all labs as ordered have been reviewed, interpreted and considered in the overall management of the clinical presentation; X-RAY - interpreted by Radiologist and personally reviewed, 2 view chest, chronic obstructive pulmonary disease pattern. The patient has been re-examined and re-evaluated. The patient's symptoms have markedly improved after treatment, with her PO at 96% at rest, her air entry normal and only an occasional wheeze at the bases. Disposition: The historical points, examination findings, and any diagnostic results supporting the provided diagnosis, were discussed with the patient or legal guardian. The need for outpatient follow up with the provider listed on their discharge instructions was discussed. They were encouraged to return to [facility], or the nearest ED, if symptoms worsen/persist, or for any other questions/concerns. 15:03 MDI teaching with Spacer ordered. 15:03 Ventolin Inhaler 2 puffs Inhalation once ordered. 12/24 10:04 ECG/EKG was scanned into [employer] and attached to record. EC/30 09:58 Rate is 67 beats/min. Rhythm is regular, Normal Sinus Rhythm. QRS [place] is Normal. OR pc interval is normal. QRS interval is normal. QT interval is normal. No Q waves. T waves are Normal. ST Segment is elevated in leads I, II, III, aVL, aVF, V4, V5, V6. Clinical impression: Normal Sinus Rhythm and ST-T changes consistent with early repolarization. Administered Medications: 10:15 Drug: Albuterol-Ipratropium 1 neb [ipratropium-albuterol 0.5 mg-3 mg(2.5 mg base)/3 mL js11 nebulization soln (1 neb)] Route: Nebulizer; 10:30 Drug: Solu-MEDROL 125 mg [Solu-Medrol 500 mg intravenous solution (125 mg)] Route: IVP; mk4 Site: left antecubital; 10:35 Drug: Albuterol-Ipratropium 1 neb [ipratropium-albuterol 0.5 mg-3 mg(2.5 mg base)/3 mL js11 nebulization soln (1 neb)] Route: Nebulizer; 10:50 Drug: Albuterol-Ipratropium 1 neb [ipratropium-albuterol 0.5 mg-3 mg(2.5 mg base)/3 mL js11 nebulization soln (1 neb)] Route: Nebulizer; 13:42 Drug: Albuterol-Ipratropium 1 neb [ipratropium-albuterol 0.5 mg-3 mg(2.5 mg base)/3 mL cs15 nebulization soln (1 neb)] Route: Nebulizer; 14:01 Drug: Albuterol-Ipratropium 1 neb [ipratropium-albuterol 0.5 mg-3 mg(2.5 mg base)/3 mL cs15 nebulization soln (1 neb)] Route: Nebulizer; 14:13 Drug: Albuterol-Ipratropium 1 neb [ipratropium-albuterol 0.5 mg-3 mg(2.5 mg base)/3 mL cs15 nebulization soln (1 neb)] Route: Nebulizer; 15:14 Drug: Ventolin 2 puffs [Ventolin HFA 90 mcg/actuation aerosol inhaler (2 puffs)] Route: mk4 Inhalation; Critical Care Time: 15:00 Critical care time: Bedside Care: 30 minutes, Family Intervention: 10 minutes. Total pc time: 40 minutes Signatures: Dispatcher [employer] Teddy Peacock MD MD pc Sleeman, Kacey, RN RN Carey Diallo Reg Reg gb King, Margaret, RN RN mk4 Jolie Vale, MARCOS HYDRANT SETTER Guzman George jp5 Basilio Blount js11 Jose Bruno cs15 The chart was reviewed and I authenticate all verbal orders and agree with the evaluation and treatment provided.Corrections: (The following items were deleted from the chart) 08:26 07:59 The pt / caregiver states he / she is not on anticoagulants. pablo shah 09:57 07:59 PMHx: CAD; pablo pc Attachments: 10:44 [facility] Payment Agreement jp5 12/24 10:04 ECG/EKG gb Chart Complete MTDD
--- NOTE | 2016-12-25 16:36 | EDDOCDS ---
Nurse's Notes [facility] Name: Felipe Lester Age: 56 yrs Sex: Female : 1960 Arrival Date: 12/23/2016 Time: 07:11 Bed TR3 Private MD: Diagnosis: Chronic obstructive pulmonary disease with (acute) exacerbation Presentation: 12/23 07:50 Presenting complaint: Patient states: she has had a cough for 2 weeks - was at [facility] - started on antibiotics and cough meds - diagnosed with URI and sinusitis - last night had more difficulty breathing and chest heaviness - feels like she is not getting any better. Adult Sepsis Screening: The patient does not have new or worsening altered mentation. Patient has a respiratory rate of greater than or equal to 22 (1 point). Systolic blood pressure is greater than 100. Patient has a qSOFA score of 0- Negative Sepsis Screen. Suicide/Homicide risk assessment- the patient denies having any suicidal and/or homicidal ideations and does not present with any other emotional, behavioral or mental health complaints. 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 Transition of care: patient was not received from another setting of care. 07:50 Method Of Arrival: Walkin/Carried/Asstd kcs 07:59 Acuity: PJ Level 3 kcs Triage Assessment: 07:59 General: Appears comfortable, well developed, well nourished, well groomed, Behavior is kcs cooperative, pleasant. Pain: Denies pain. HIV screening NA for this visit Offered previously. Neurological: Level of Consciousness is awake, alert. Respiratory: Airway is patent Respiratory effort is even, unlabored, Respiratory pattern is regular, symmetrical. Derm: Skin is intact, is healthy with good turgor, Skin is dry, Skin is normal. Historical: - Allergies: No known drug Allergies; - Home Meds: 1. atorvastatin 40 mg oral tab 1 tab once daily 2. metoprolol succinate 25 mg Tb24 1 tab once daily 3. hydrochlorothiazide 12.5 mg Oral tab 1 tab once daily 4. clopidogrel 75 mg oral tab 1 tab once daily 5. fluticasone 50 mg 1 spray each nostril twice daily 6. aspirin 81 mg oral tab once daily 7. Augmentin 875-125 mg Oral tab every 12 hours 8. benzonatate 100 mg oral cap 1 cap 3 times per day as needed (Last dose: 12/22/2016 16:00) - PMHx: Hypertension; Hypercholesterolemia; CVA; - PSHx: ; Uterine biopsy; right hipr eplacement; - The history from nurses notes was reviewed: and elements of the historical information I have obtained differs from that reported to nursing. - Social history: Smoking status: Patient states former smoker of tobacco. No barriers to communication noted, The patient speaks fluent Jordanian. - : The pt / caregiver states he / she is on anticoagulants: Plavix. Home medication list is obtained from the patient, PingSome import data, pill bottles. - Hospitalizations: : No recent hospitalization is reported. - Exposure Risk Screening:: None identified. - Immunization history:: All immunizations up-to-date. - Family history: Not pertinent. - Social history:: the patient is a former smoker, the patient drinks alcohol. Screenin:11 Screening information is obtained from the patient. Fall risk: No risks identified. mk4 Assistance ADL's: requires no assistance with activities of daily living. Abuse/DV Screen: The patient / caregiver reports he/she is: not in a situation that causes fear, pain or injury. Nutritional screening: No deficits noted. Advance Directives: Currently, there is no health care proxy. There is no active DNR order. There is There is no Power of Alcohol Rubber. Advance directive information has not previously been placed in an [facility] medical record. Further advance directive information is declined. home support is adequate. Assessment: 09:00 General: Appears in no apparent distress. Pain: Denies pain. Respiratory: Airway is mk4 patent Respiratory effort is even, labored, Respiratory pattern is regular, Reports cough that is non-productive, hacking, persistent since 8-9 days ago oxygen applied at 2 l nc. 11:09 General: Appears in no apparent distress. Respiratory: Airway is patent Respiratory mk4 effort is labored, Respiratory pattern is regular, Breath sounds with rhonchi inspiratory expiratory bilaterally. 11:09 Neurological: Level of Consciousness is awake, Oriented to person, place, time. mk4 Respiratory: Reports cough that is non-productive, since 9 days ago. Derm: Skin is intact, is healthy with good turgor, Skin is pink, warm & dry. 13:00 General: Appears in no apparent distress, comfortable, Behavior is cooperative. mk4 Respiratory: Airway is patent Respiratory effort is even. 13:25 General: Appears in no apparent distress, oxygen removed and pt sao2 dropped to 88 % mk4 oxygen placed back on Dr Sadler at bedside and aware. 14:22 General: Appears in no apparent distress, comfortable. Respiratory: Airway is patent mk4 Respiratory effort is labored, Respiratory pattern is regular, tachypnea. 14:42 General: Appears in no apparent distress, comfortable. mk4 15:32 General: Appears in no apparent distress, comfortable, Behavior is cooperative. mk4 Respiratory: Airway is patent Respiratory effort is even, unlabored, oxygen level 94-95 on room air after second set of nebs, albuterol neb with spacer instructions provided. Vital Signs: 07:59 BP 149 / 95; Pulse 82; Resp 22; Temp 97.4(O); Pulse Ox 90% on R/A; Weight 106.14 kg kcs (R); Height 5 ft. 7 in. (170.18 cm) (R); Pain 0/10; 08:22 BP 188 / 93 (auto/); mk4 08:24 Pulse 64 MON; Pulse Ox 93% ; mk4 08:36 Pulse 64 MON; Pulse Ox 93% ; mk4 08:37 BP 181 / 84 (auto/); mk4 08:52 BP 204 / 88 (auto/); mk4 08:52 Pulse 58 MON; Pulse Ox 91% ; mk4 09:06 Pulse 72 MON; Pulse Ox 92% ; mk4 09:07 BP 206 / 100 (auto/); mk4 09:22 Pulse 66 MON; Pulse Ox 91% ; mk4 09:22 BP 204 / 88 (auto/); mk4 09:37 BP 171 / 77 (auto/); mk4 09:37 Pulse 70 MON; Pulse Ox 93% ; mk4 10:52 BP 135 / 64 (auto/); mk4 10:54 Pulse 76 MON; Pulse Ox 94% ; mk4 11:07 BP 143 / 76 (auto/); mk4 11:07 Pulse 100 MON; Pulse Ox 98% ; mk4 11:22 BP 141 / 72 (auto/); mk4 11:22 Pulse 60 MON; Pulse Ox 97% ; mk4 11:36 Pulse 58 MON; Pulse Ox 96% ; mk4 11:37 BP 161 / 81 (auto/); mk4 11:52 BP 136 / 62 (auto/); mk4 11:52 Pulse 58 MON; Pulse Ox 95% ; mk4 12:07 BP 129 / 60 (auto/); mk4 12:07 Pulse 74 MON; Pulse Ox 96% ; mk4 12:22 BP 136 / 65 (auto/); mk4 12:22 Pulse 70 MON; Pulse Ox 95% ; mk4 12:37 BP 132 / 64 (auto/); mk4 12:37 Pulse 68 MON; Pulse Ox 95% ; mk4 12:52 BP 118 / 58 (auto/); mk4 12:52 Pulse 72 MON; Pulse Ox 94% ; mk4 13:07 BP 128 / 61 (auto/); mk4 13:07 Pulse 68 MON; Pulse Ox 90% ; mk4 13:22 BP 152 / 79 (auto/); mk4 13:22 Pulse 66 MON; Pulse Ox 89% ; mk4 13:37 BP 159 / 91 (auto/); mk4 13:37 Pulse 68 MON; Pulse Ox 95% ; mk4 13:52 BP 149 / 70 (auto/); mk4 13:52 Pulse 82 MON; Pulse Ox 100% ; mk4 14:07 BP 151 / 70 (auto/); mk4 14:07 Pulse 96 MON; Pulse Ox 98% ; mk4 14:52 BP 154 / 54 (auto/); mk4 15:00 Pulse 102 MON; Resp 22; Temp 97.8(O); Pulse Ox 93% ; mk4 07:59 Body Mass Index 36.65 (106.14 kg, 170.18 cm) [facility] Vitals: 07:59 Log In Time: December 23, 2016 at 07:13. kcs ED Course: 07:12 Patient visited by Comfort Faith Reg. hs2 07:12 Patient moved to Waiting hs2 07:53 Triage Initiated kcs 08:02 Patient moved to 15 kcs 08:25 Patient visited by Laura Chavez PCA. ct3 08:58 Patient visited by Radha Feldman RN. mk4 08:58 Teddy Sadler MD is Attending Physician. pc 09:00 The patient / caregiver is instructed regarding the plan of care and ED course. Cardiac mk4 monitor on. Pulse ox on. NIBP on. 09:00 Inserted saline lock: 20 gauge in right wrist. mk4 09:33 Patient visited by Teddy Sadler MD. pc 09:57 Patient visited by Santa Manjarrez. lr2 09:57 EKG done. (by ED staff). Reviewed by Teddy Sadler MD. lr2 10:11 -Influenza A&B Rapid Antigen - Nose Sent. mk4 10:11 -Blood Culture Sent. mk4 10:11 B-Type Natiuretic Peptide Sent. mk4 10:11 Basic Metabolic Profile Sent. mk4 10:11 CBC with Diff Sent. mk4 10:11 Cardiac Injury Profile Sent. mk4 10:11 Troponin Sent. mk4 10:42 Patient visited by Radha Feldman, DAVID. mk4 10:44 PENDING SALE TO [facility] Payment Agreement was scanned into [employer] and attached to record. jp5 10:51 BLOOD CULTURES Sent. ct3 11:12 Patient visited by Laura Chavez PCA. ct3 11:48 Patient visited by Radha Feldman, DAVID. mk4 12:19 Patient visited by Radha Feldman, DAVID. mk4 12:54 Patient visited by Radha Feldman, DAVID. mk4 13:25 Patient visited by Radha Feldman, DAVID. mk4 13:37 Chest, 2 View (pa\E\lat) Returned. EDMS 14:13 Patient visited by Antionette Sarmiento RN. srm 15:00 Discontinued IV lock bleeding controlled, pressure dressing applied. No procedures done mk4 that require assistance. 15:01 [facility] Garrytristen Grey is Referral Physician. pc 15:34 Patient moved to [facility] mdr 21:37 EKG-ADULT Returned. EDMS 12/24 10:04 ECG/EKG was scanned into [employer] and attached to record. gb Administered Medications: 12/23 10:15 Drug: Albuterol-Ipratropium 1 neb [ipratropium-albuterol 0.5 mg-3 mg(2.5 mg base)/3 mL js11 nebulization soln (1 neb)] Route: Nebulizer; 10:30 Drug: Solu-MEDROL 125 mg [Solu-Medrol 500 mg intravenous solution (125 mg)] Route: IVP; mk4 Site: left antecubital; 10:35 Drug: Albuterol-Ipratropium 1 neb [ipratropium-albuterol 0.5 mg-3 mg(2.5 mg base)/3 mL js11 nebulization soln (1 neb)] Route: Nebulizer; 10:50 Drug: Albuterol-Ipratropium 1 neb [ipratropium-albuterol 0.5 mg-3 mg(2.5 mg base)/3 mL js11 nebulization soln (1 neb)] Route: Nebulizer; 13:42 Drug: Albuterol-Ipratropium 1 neb [ipratropium-albuterol 0.5 mg-3 mg(2.5 mg base)/3 mL cs15 nebulization soln (1 neb)] Route: Nebulizer; 14:01 Drug: Albuterol-Ipratropium 1 neb [ipratropium-albuterol 0.5 mg-3 mg(2.5 mg base)/3 mL cs15 nebulization soln (1 neb)] Route: Nebulizer; 14:13 Drug: Albuterol-Ipratropium 1 neb [ipratropium-albuterol 0.5 mg-3 mg(2.5 mg base)/3 mL cs15 nebulization soln (1 neb)] Route: Nebulizer; 15:14 Drug: Ventolin 2 puffs [Ventolin HFA 90 mcg/actuation aerosol inhaler (2 puffs)] Route: mk4 Inhalation; Intake: 12:06 PO: 240.00ml (Coffee); Total: 240.00ml. lr2 RT: 10:15 Initial Med Neb Given as ordered Patient was instructed and evaluated on procedure js11 Patient tolerated procedure well without adverse effect. Oxygen is room air. Respiratory: Breath sounds with wheezes bilaterally. at expiration. 10:35 Subsequent Med Neb Given as ordered Patient tolerated procedure well without adverse js11 effect. Respiratory: Breath sounds with wheezes bilaterally. at expiration. 10:50 Subsequent Med Neb Given as ordered Patient tolerated procedure well without adverse js11 effect. Respiratory: Breath sounds with wheezes bilaterally. at expiration. 13:42 Subsequent Med Neb Given as ordered. O2 via nasal cannula \T\ 2L/min. Respiratory: Breath cs15 sounds with crackles in left posterior lower lobe and right posterior lower lobe Breath sounds with wheezes bilaterally. at expiration. 14:13 Respiratory: Breath sounds with crackles in left posterior lower lobe and right cs15 posterior lower lobe. Order Results: Lab Order: -Blood Culture; SPEC'M 12/23/16 09:48 Test: BLOOD CULTURE; Value: No growth after 24 hours . All specimens observed; Status: F Test: BLOOD CULTURE; Value: for 5 days. Results final at that time.; Status: F Test: BLOOD CULTURE; Value: No Growth after 48 hours. All Specimens observed; Status: F Test: BLOOD CULTURE; Value: for 7 days. Results final at that time.; Status: F Lab Order: B-Type Natiuretic Peptide; SPEC'M 12/23/16 09:48 Test: BRAIN NATRIURETIC PEPTIDE; Value: 36.7; Range: <100; Units: PG/ML; Status: F Lab Order: Basic Metabolic Profile; SPEC'M 12/23/16 10:49 Test: GLUCOSE, FASTING; Value: 105; Range: 70-105; Units: MG/DL; Status: F Test: BLOOD UREA NITROGEN; Value: 12; Range: 7-18; Units: MG/DL; Status: F Test: CREATININE FOR GFR; Value: 0.71; Range: 0.55-1.02; Units: MG/DL; Status: F Test: GLOMERULAR FILTRATION RATE; Value: > 60.0; Range: >51; Status: F Test: SODIUM LEVEL; Value: 143; Range: 136-145; Units: MEQ/L; Status: F Test: POTASSIUM SERUM; Value: 4.0; Range: 3.5-5.1; Units: MEQ/L; Status: F Test: CHLORIDE LEVEL; Value: 106; Range: 98-107; Units: MEQ/L; Status: F Test: CARBON DIOXIDE LEVEL; Value: 28; Range: 21-32; Units: MEQ/L; Status: F Test: ANION GAP; Value: 9; Range: 8-16; Units: MEQ/L; Status: F Test: CALCIUM LEVEL; Value: 9.4; Range: 8.5-10.1; Units: MG/DL; Status: F Test Note: ; Units are mL/min/1.73 m2 Chronic Kidney Disease Staging per NKF: Stage I & II GFR >=60 Normal to Mildly Decreased Stage III GFR 30-59 Moderately Decreased Stage IV GFR 15-29 Severely Decreased Stage V GFR <15 Very Little GFR Left ESRD GFR <15 on MANAGER LABOR RELATIONS Lab Order: CBC with Diff; SPEC'M 12/23/16 09:48 Test: WHITE BLOOD COUNT; Value: 10.1; Range: 4.0-10.0; Abnormal: Above high normal; Units: K/mm3; Status: F Test: RED BLOOD COUNT; Value: 4.86; Range: 4.00-5.40; Units: M/mm3; Status: F Test: HEMOGLOBIN; Value: 14.9; Range: 12.0-16.0; Units: g/dl; Status: F Test: HEMATOCRIT; Value: 45.9; Range: 36.0-47.0; Units: %; Status: F Test: MEAN CORPUSCULAR VOLUME; Value: 94.4; Range: 80.0-96.0; Units: fl; Status: F Test: MEAN CORPUSCULAR HEMOGLOBIN; Value: 30.5; Range: 27.0-33.0; Units: pg; Status: F Test: MEAN CORPUSCULAR HGB CONC; Value: 32.3; Range: 32.0-36.5; Units: g/dl; Status: F Test: RED CELL DISTRIBUTION WIDTH; Value: 13.6; Range: 11.5-14.5; Units: %; Status: F Test: PLATELET COUNT, AUTOMATED; Value: 279; Range: 150-450; Units: k/mm3; Status: F Test: NEUTROPHILS %; Value: 72.7; Range: 36.0-66.0; Abnormal: Above high normal; Units: %; Status: F Test: LYMPH %; Value: 16.6; Range: 24.0-44.0; Abnormal: Below low normal; Units: %; Status: F Test: MONO %; Value: 6.2; Range: 0.0-5.0; Abnormal: Above high normal; Units: %; Status: F Test: EOS %; Value: 1.9; Range: 0.0-3.0; Units: %; Status: F Test: BASO %; Value: 0.6; Range: 0.0-1.0; Units: %; Status: F Test: LARGE UNSTAINED CELL %; Value: 2.1; Range: 0.0-4.0; Units: %; Status: F Test: NEUTROPHILS #; Value: 7.3; Range: 1.8-7.7; Units: K/mm3; Status: F Test: LYMPH #; Value: 1.7; Range: 1.5-4.5; Units: K/mm3; Status: F Test: MONO #; Value: 0.6; Range: 0.0-0.8; Units: K/mm3; Status: F Test: EOS #; Value: 0.2; Range: 0.0-0.50; Units: K/mm3; Status: F Test: BASO #; Value: 0.1; Range: 0.0-0.2; Units: K/mm3; Status: F Test: LARGE UNSTAINED CELL #; Value: 0.2; Range: 0.0-0.4; Units: K/mm3; Status: F Lab Order: Cardiac Injury Profile; [facility]' 12/23/16 10:49 Test: CPK CREATINE PHOSPHOKINASE; Value: 152; Range: 26-192; Units: U/L; Status: F Test: CK-MB VALUE MASS; Value: 2.1; Range: 0.0-3.6; Units: NG/ML; Status: F Test: MB/CK RELATIVE INDEX; Value: 1.38; Range: < OR =4; Status: F Test Note: ; DIAGNOSIS CRITERIA MMB ng/ml Relative Index (RI) NON-AMI < or = 5 N/A FORD ZONE > 5 < or = 4 AMI > 5 > 4 Lab Order: Troponin; SPEC' 12/23/16 10:49 Test: TROPONIN I; Value: < 0.02; Range: < 0.10; Units: NG/ML; Status: F Test Note: ; Troponin I Reference Interval for Inbilin LOCI: 99th Percentile= 0.00-0.045 ng/ml Risk Stratification: <= 0.10 ng/ml Decreased Risk for Adverse Clinical Events. 0.10-1.50 ng/ml Increased Risk for Adverse Clinical Events. Evaluation of additional criterion and/or repeat testing in 2-6 hours is suggested to rule out myocardial damage. >= 1.50 ng/ml Indicative of Myocardial Injury. Lab Order: -Influenza A&B Rapid Antigen - Nose; SPEC'M 12/23/16 09:53 Test: INFLUENZA A RAPID SCR by ICA; Value: INFLUENZA A RESULTS NEGATIVE; Status: F Test: INFLUENZA A RAPID SCR by ICA; Value: Comments:; Status: F Test: INFLUENZA B RAPID SCR by ICA; Value: INFLUENZA B RESULTS NEGATIVE; Status: F Test Note: ; The Influenza test is a direct rapid immunoassay for the qualitative detection of Influenza viral antigen. Cell culture (Viral Culture) testing should be considered to confirm NEGATIVE results and to assist in detecting other viruses that can provide similar clinical symptoms. Please contact the lab within 24 hours ([phone]) if confirmatory testing is desired. Lab Order: BLOOD CULTURES; SPEC'M 12/23/16 10:49 Test: BLOOD CULTURE; Value: No growth after 24 hours . All specimens observed; Status: F Test: BLOOD CULTURE; Value: for 5 days. Results final at that time.; Status: F Test: BLOOD CULTURE; Value: No Growth after 48 hours. All Specimens observed; Status: F Test: BLOOD CULTURE; Value: for 7 days. Results final at that time.; Status: F Radiology Order: Chest, 2 View (pa\E\lat) Test: Chest, 2 View (pa\E\lat) REASON FOR EXAMINATION: Shortness of Breath; Chest x-ray: Two views.; ; History: Shortness of breath.; ; Findings: EKG monitoring electrodes overlie the chest. The heart is not; enlarged. The aorta is somewhat tortuous. Pulmonary vasculature is not; increased. No infiltrate is seen. Pleural angles are sharp.; ; Impression:; ; No active disease.; ; ; Signed by; Eric Quinn MD 12/23/2016 01:26 P; Radiology Order: EKG-ADULT Test: EKG-ADULT REASON FOR EXAMINATION: Shortness of Breath; Stationary ECG Study; [facility] - ED; ; Test Date: 2016-12-23; Pat Name: FELIPE LESTER Department:; Room: -; Gender: F Hotel Service Supervisor: seven; : 1960 Requested By: Teddy Wilkerson; Order Number: [id number] Lizzie MD: Harmony Rousseau; Measurements; Intervals [place]; Rate: 66 P: 40; IL: 178 QRS: 62; QRSD: 72 T: 68; QT: 394; QTc: 415; Interpretive Statements; SINUS RHYTHM; NSTTW ABNORMALITY; DECREASED RATE 01/19/15; Electronically Signed On 12-23-2016 20:56:48 EST by Harmony Rousseau; Outcome: 15:00 Discharge Assessment: Patient awake, alert and oriented x 3. No cognitive and/or mk4 functional deficits noted. Patient verbalized understanding of disposition instructions. Patient awake and alert. Discharge Assessment: patient administered narcotics - no. The following High Risk Discharge criteria are identified: None. Discharged to home ambulatory. Condition: stable Condition: improved. Discharge instructions given to patient, Instructed on discharge instructions, inhaler with spacer Prescriptions given X 2. No special radiology studies were completed. Property sent home with patient. 15:02 Discharge ordered by Provider. pc 15:35 Patient left the ED. mk4 Signatures: Dispatcher [employer] EDMS Teddy Sadler MD MD pc Sleeman, Kacey RN Antionette Henry RN RN [facility] Mariam, Carey, Reg Reg gb Chavez, Laura, CATERING SOUS CHEF CATERING SOUS CHEF ct3 Basilio Blount js11 Radha Feldman RN RN mk4 Guzman Harris jp5 Javid Valles, CATERING SOUS CHEF CATERING SOUS CHEF mdr Jose Bruno,RT RT cs15 Comfort Faith, Reg Reg hs2 Santa Manjarrez lr2 Corrections: (The following items were deleted from the chart) 08:02 07:50 Acuity: PJ Level 4 [facility] 08:26 07:59 The pt / caregiver states he / she is not on anticoagulants. kcs kcs 09:57 07:59 PMHx: CAD; kcs pc 11:11 09:00 Respiratory: Airway is patent Respiratory effort is even, labored, Respiratory mk4 pattern is regular, Reports cough that is non-productive, hacking, persistent since 8-9 days ago mk4 Chart Complete MTDD
== END 2016-12-23 15:35 | disposition home or self-care (01) ==
LOC: M ED 07:11
DX: J44.1 Chronic obstructive pulmonary disease with (acute) exacerbation (principal); I10 Essential (primary) hypertension; E78.00 Pure hypercholesterolemia, unspecified; Z86.73 Personal history of transient ischemic attack (TIA), and cerebral infarction without residual deficits; Z96.641 Presence of right artificial hip joint; Z87.891 Personal history of nicotine dependence; Z79.82 Long term (current) use of aspirin; Z79.899 Other long term (current) drug therapy
CPT/HCPCS: 36415; 71020; 80048; 82550; 82553; 83880; 85025; 87040; 87804; 93005; 93041; 94640; 96374; 99285; J2930

== ENCOUNTER → 2017-02-26 | Outpatient (REF) | payer OTHER ==
[2017-02-26 16:15] LABS: ALKALINE PHOSPHATASE 122 U/L (45-117); ALT/SGPT 24 U/L (12-78); ANION GAP 4 MEQ/L (8-16); AST/SGOT 16 U/L (15-37); BILIRUBIN,TOTAL 0.4 MG/DL (0.2-1.0); BLOOD UREA NITROGEN 17 MG/DL (7-18); CALCIUM LEVEL 8.9 MG/DL (8.5-10.1); CARBON DIOXIDE LEVEL 30 MEQ/L (21-32); CHLORIDE LEVEL 106 MEQ/L (98-107); CHOLESTEROL LEVEL 190 MG/DL (<200); CREATININE FOR GFR 0.65 MG/DL (0.55-1.02); GLOMERULAR FILTRATION RATE > 60.0 (>51); GLUCOSE, FASTING 95 MG/DL (70-105); POTASSIUM SERUM 4.6 MEQ/L (3.5-5.1); SODIUM LEVEL 140 MEQ/L (136-145); TOTAL PROTEIN 6.8 GM/DL (6.4-8.2); TRIGLYCERIDES LEVEL 186 MG/DL (<150)
[2017-02-26 16:16] LABS: ALBUMIN 3.5 GM/DL (3.2-5.2); ALBUMIN/GLOBULIN RATIO 1.06 (1.00-1.93)
== END ==
LOC: M SFHCSACK 08:11
PROVIDERS: ATTEND Physician Assistant
DX: E78.5 Hyperlipidemia, unspecified (principal); I10 Essential (primary) hypertension

== ENCOUNTER 2017-05-31 08:59 | Emergency (ER) | payer BC, OTHER ==
[~2017-05-31] VITALS: Ht 170.2 cm; Wt 113.4 kg
[~2017-05-31 08:59] MED LIST changes: +PLAV1TAB2 PO; -PLAV75TA38 PO
[2017-05-31] MEDS ORDERED: HYDR12.55 PO (09:09)
[2017-05-31] MEDS ORDERED: TOPR25TA PO (09:09)
[2017-05-31] MEDS ORDERED: PROAAER10 (09:12)
[2017-05-31] MEDS ORDERED: IPRATROPIUM 0.5MG/ALBUTEROL 2.5MG INH SOL UD 3ML (DUONEB)(J7620) NEB ONE (09:45)
[2017-05-31] MEDS ORDERED: methylPREDNISolone INJ 125 MG/2 ML VIAL (J2930) IM ONE (09:45)
--- NOTE | 2017-05-31 10:32 | REP ---
Clinical: Cough and shortness of breath . Comparison: 12/23/2016 . Technique: PA and lateral. Findings: The mediastinum and cardiac silhouette are normal. The lung mcleod are clear and without acute consolidation, effusion, or pneumothorax. The skeletal structures are intact and normal. Impression: 1. No acute cardiopulmonary process. Signed by Artemio Farley MD 05/31/2017 10:22 A
[2017-05-31] MEDS ORDERED: guaiFENesin SYRUP 200 MG/10 ML UDC PO ONE (11:15)
[2017-05-31] MEDS ORDERED: PRED20TA PO (11:18)
[2017-05-31] MEDS ORDERED: CHERSYP3 PO (11:18)
[2017-05-31] MEDS ORDERED: TESS100C PO (11:18)
[2017-05-31 11:23] VITALS: BP 129/62
== END 2017-05-31 11:27 | disposition home or self-care (01) ==
LOC: M ED 08:59
DX: J44.1 Chronic obstructive pulmonary disease with (acute) exacerbation (principal); R05 Cough; Z87.891 Personal history of nicotine dependence; Z86.73 Personal history of transient ischemic attack (TIA), and cerebral infarction without residual deficits
CPT/HCPCS: 71020; 94640; 96372; 99282; J2930

== ENCOUNTER → 2017-07-30 | Outpatient (CLI) | payer BC ==
[~2017-07-30] MED LIST changes: +CHERSYP3 PO; +HYDR12.55 PO; +PRED20TA PO; +PROAAER10; +TESS100C PO; +TOPR25TA PO
--- NOTE | 2017-07-30 16:38 | REPMRS ---
Patient History The patient states she had a clinical breast exam in 07/2017. Patient is postmenopausal and had first child at age 34. Family history of breast cancer in paternal aunt at age 50 or over. Took progesterone for 4 months. Digital Woman Screen Mammo: July 30, 2017 - Exam #: [id number] Bilateral CC and MLO view(s) were taken. Technologist: Melina Phelps, Technologist Prior study comparison: May 14, 2016, digital woman screen mammo performed at [facility]. May 08, 2015, digital woman screen mammo performed at [facility]. May 05, 2014, digital woman screen mammo performed at [facility]. FINDINGS: There are scattered fibroglandular densities. There has been no change in the appearance of the mammogram from the prior studies. There is a mild amount of scattered fibroglandular density which is fairly symmetric. There is no interval development of dominant mass, architectural distortion, or clustered microcalcification suggestive of malignancy. ASSESSMENT: BI-RADS/ACR category 1 mammogram. Negative. Recommendation Routine screening mammogram in 1 year (for women over age 40). This mammogram was interpreted with the aid of an FDA-approved computer-aided dectection system. Electronically Signed By: Guillermo Quinn MD 07/30/17 [id number]
== END ==
LOC: M WHC 13:42
PROVIDERS: ATTEND Nurse Practitioner Women's Health
DX: Z12.31 Encounter for screening mammogram for malignant neoplasm of breast (principal)

== ENCOUNTER → 2017-07-30 | Outpatient (REF) | payer OTHER | LOC: M SFHCWAGY 14:13 | PROVIDERS: ATTEND Nurse Practitioner Women's Health | DX: Z12.4 Encounter for screening for malignant neoplasm of cervix (principal) ==

== ENCOUNTER → 2017-08-21 | Outpatient (REF) | payer OTHER | LOC: M SFHCWAGY 14:19 | PROVIDERS: ATTEND Nurse Practitioner Women's Health | DX: R87.619 Unspecified abnormal cytological findings in specimens from cervix uteri (principal) ==

== ENCOUNTER → 2017-08-21 | Outpatient (CLI) | payer BC ==
--- NOTE | 2017-08-22 03:28 | REP ---
Clinical: Abnormal Pap smear . Technique: Transabdominal pelvic ultrasound followed by transvaginal examination for better evaluation of the endometrium and adnexa. Findings: Bladder is unremarkable and measures 10.0 x 10.1 x 8.3 cm. Heterogeneous anteverted uterus measures 8.0 x 2.7 x 5.1 cm. The endometrial complex measures up to 9.9 mm thickness. No discrete uterine or endometrial abnormalities are appreciated. Bilateral ovaries are normal in appearance. Right ovary measures 3.0 x 1.2 x 1.6 cm. Left ovary measures 2.5 x 1.1 x 2.1 cm. No pelvic fluid or adnexal mass lesion. Impression: 1. Heterogenous uterus with thickened endometrium. No discrete abnormality appreciated.
== END ==
LOC: M WHC 13:27
PROVIDERS: ATTEND Nurse Practitioner Women's Health
DX: R87.619 Unspecified abnormal cytological findings in specimens from cervix uteri (principal); Z78.0 Asymptomatic menopausal state

== ENCOUNTER → 2018-01-16 | Outpatient (REF) | payer OTHER ==
[2018-01-16 15:30] LABS: BASO # 0.1 10^3/uL (0.0-0.2); BASO % 0.6 % (0.0-1.0); EOS # 0.2 10^3/uL (0.0-0.50); EOS % 2.2 % (0.0-3.0); HEMATOCRIT 45.5 % (36.0-47.0); HEMOGLOBIN 14.3 g/dl (12.0-16.0); IMMATURE GRANULOCYTE % 0.7 % (0-3.0); LYMPH # 2.8 10^3/uL (1.5-4.5); LYMPH % 25.9 % (24.0-44.0); MEAN CORPUSCULAR HEMOGLOBIN 30.1 pg (27.0-33.0); MEAN CORPUSCULAR HGB CONC 31.4 g/dl (32.0-36.5); MEAN CORPUSCULAR VOLUME 95.8 fl (80.0-96.0); MONO # 0.8 10^3/uL (0.0-0.8); MONO % 7.2 % (0.0-5.0); NEUTROPHILS # 6.7 10^3/uL (1.8-7.7); NEUTROPHILS % 63.4 % (36.0-66.0); PLATELET COUNT, AUTOMATED 318 10^3/uL (150-450); RED BLOOD COUNT 4.75 10^6/uL (4.00-5.40); RED CELL DISTRIBUTION WIDTH 14.7 % (11.5-14.5); WHITE BLOOD COUNT 10.6 10^3/uL (4.0-10.0)
[2018-01-16 15:45] LABS: ALBUMIN 3.5 GM/DL (3.2-5.2); ALBUMIN/GLOBULIN RATIO 1.06 (1.00-1.93); ALKALINE PHOSPHATASE 114 U/L (45-117); ALT/SGPT 27 U/L (12-78); ANION GAP 7 MEQ/L (8-16); AST/SGOT 8 U/L (7-37); BILIRUBIN,TOTAL 0.4 MG/DL (0.2-1.0); BLOOD UREA NITROGEN 17 MG/DL (7-18); CALCIUM LEVEL 8.6 MG/DL (8.5-10.1); CARBON DIOXIDE LEVEL 31 MEQ/L (21-32); CHLORIDE LEVEL 105 MEQ/L (98-107); CHOLESTEROL LEVEL 190 MG/DL (<200); CHOLESTEROL RISK RATIO 3.333 (<5); CREATININE FOR GFR 0.66 MG/DL (0.55-1.30); FREE T4 1.12 NG/DL (0.76-1.46); GLOMERULAR FILTRATION RATE > 60.0 (>51); GLUCOSE, FASTING 102 MG/DL (70-100); HDL CHOLESTEROL 57 MG/DL (>40); NON-HDL-C 133 MG/DL; POTASSIUM SERUM 4.8 MEQ/L (3.5-5.1); SODIUM LEVEL 143 MEQ/L (136-145); TOTAL PROTEIN 6.8 GM/DL (6.4-8.2); TRIGLYCERIDES LEVEL 320 MG/DL (<150)
[2018-01-16 19:19] LABS: TOTAL 25(OH) VITAMIN D 9.8 NG/ML (30.0-100.0)
== END ==
LOC: M SFHCSACK 09:52
DX: E78.5 Hyperlipidemia, unspecified (principal); Z13.29 Encounter for screening for other suspected endocrine disorder; Z13.21 Encounter for screening for nutritional disorder; I10 Essential (primary) hypertension

== ENCOUNTER → 2018-05-11 | Outpatient (REF) | payer OTHER ==
[2018-05-11 12:35] LABS: BASO % 0.4 % (0.0-1.0); EOS # 0.2 10^3/uL (0.0-0.50); EOS % 2.2 % (0.0-3.0); HEMATOCRIT 41.9 % (36.0-47.0); HEMOGLOBIN 13.3 g/dl (12.0-15.5); IMMATURE GRANULOCYTE % 0.1 % (0-3.0); LYMPH # 2.1 10^3/uL (1.5-4.5); LYMPH % 24.9 % (24.0-44.0); MEAN CORPUSCULAR HEMOGLOBIN 30.7 pg (27.0-33.0); MEAN CORPUSCULAR HGB CONC 31.7 g/dl (32.0-36.5); MEAN CORPUSCULAR VOLUME 96.8 fl (80.0-96.0); MONO # 0.8 10^3/uL (0.0-0.8); NEUTROPHILS # 5.2 10^3/uL (1.8-7.7); NEUTROPHILS % 62.4 % (36.0-66.0); PLATELET COUNT, AUTOMATED 250 10^3/uL (150-450); RED BLOOD COUNT 4.33 10^6/uL (4.00-5.40); RED CELL DISTRIBUTION WIDTH 14.3 % (11.5-14.5); WHITE BLOOD COUNT 8.3 10^3/uL (4.0-10.0)
[2018-05-11 13:25] LABS: ALBUMIN 3.5 GM/DL (3.2-5.2); ALBUMIN/GLOBULIN RATIO 1.09 (1.00-1.93); ALKALINE PHOSPHATASE 124 U/L (45-117); ALT/SGPT 24 U/L (12-78); ANION GAP 9 MEQ/L (8-16); AST/SGOT 14 U/L (7-37); BILIRUBIN,TOTAL 0.5 MG/DL (0.2-1.0); BLOOD UREA NITROGEN 15 MG/DL (7-18); CALCIUM LEVEL 8.9 MG/DL (8.5-10.1); CARBON DIOXIDE LEVEL 28 MEQ/L (21-32); CHLORIDE LEVEL 107 MEQ/L (98-107); CHOLESTEROL LEVEL 158 MG/DL (<200); CHOLESTEROL RISK RATIO 3.434 (<5); CREATININE FOR GFR 0.71 MG/DL (0.55-1.30); GLOMERULAR FILTRATION RATE > 60.0 (>51); GLUCOSE, FASTING 103 MG/DL (70-100); HDL CHOLESTEROL 46 MG/DL (>40); LDL CHOLESTEROL 80.4 MG/DL (<100); NON-HDL-C 112 MG/DL; POTASSIUM SERUM 4.6 MEQ/L (3.5-5.1); SODIUM LEVEL 144 MEQ/L (136-145); TOTAL PROTEIN 6.7 GM/DL (6.4-8.2); TRIGLYCERIDES LEVEL 158 MG/DL (<150)
== END ==
LOC: M SFHCADAM 08:07
DX: I10 Essential (primary) hypertension (principal); E78.5 Hyperlipidemia, unspecified; E55.9 Vitamin D deficiency, unspecified

== ENCOUNTER → 2018-11-04 | Outpatient (REF) | payer OTHER ==
[2018-11-04 13:20] LABS: BASO # 0.1 10^3/uL (0.0-0.2); BASO % 0.6 % (0.0-1.0); EOS # 0.2 10^3/uL (0.0-0.50); EOS % 2.8 % (0.0-3.0); HEMATOCRIT 43.5 % (36.0-47.0); HEMOGLOBIN 13.7 g/dl (12.0-15.5); IMMATURE GRANULOCYTE % 0.1 % (0-3.0); LYMPH % 23.8 % (24.0-44.0); MEAN CORPUSCULAR HGB CONC 31.5 g/dl (32.0-36.5); MEAN CORPUSCULAR VOLUME 95.4 fl (80.0-96.0); MONO # 0.7 10^3/uL (0.0-0.8); MONO % 7.6 % (0.0-5.0); NEUTROPHILS # 5.6 10^3/uL (1.8-7.7); NEUTROPHILS % 65.1 % (36.0-66.0); PLATELET COUNT, AUTOMATED 287 10^3/uL (150-450); RED BLOOD COUNT 4.56 10^6/uL (4.00-5.40); RED CELL DISTRIBUTION WIDTH 14.3 % (11.5-14.5); WHITE BLOOD COUNT 8.5 10^3/uL (4.0-10.0)
[2018-11-04 14:27] LABS: ALBUMIN 3.5 GM/DL (3.2-5.2); ALBUMIN/GLOBULIN RATIO 0.92 (1.00-1.93); ALKALINE PHOSPHATASE 124 U/L (45-117); ALT/SGPT 26 U/L (12-78); ANION GAP 8 MEQ/L (8-16); AST/SGOT 12 U/L (7-37); BILIRUBIN,TOTAL 0.5 MG/DL (0.2-1.0); BLOOD UREA NITROGEN 20 MG/DL (7-18); CALCIUM LEVEL 9.1 MG/DL (8.5-10.1); CARBON DIOXIDE LEVEL 28 MEQ/L (21-32); CHLORIDE LEVEL 106 MEQ/L (98-107); CHOLESTEROL LEVEL 198 MG/DL (<200); CHOLESTEROL RISK RATIO 3.245 (<5); CREATININE FOR GFR 0.84 MG/DL (0.55-1.30); GLOMERULAR FILTRATION RATE > 60.0 (>51); GLUCOSE, FASTING 105 MG/DL (70-100); HDL CHOLESTEROL 61 MG/DL (>40); LDL CHOLESTEROL 99 MG/DL (<100); NON-HDL-C 137 MG/DL; POTASSIUM SERUM 4.8 MEQ/L (3.5-5.1); SODIUM LEVEL 142 MEQ/L (136-145); TOTAL 25(OH) VITAMIN D 44.2 NG/ML (30.0-100.0); TOTAL PROTEIN 7.3 GM/DL (6.4-8.2); TRIGLYCERIDES LEVEL 188 MG/DL (<150)
[2018-11-04 16:29] LABS: ESTIMATED AVERAGE GLUCOSE 143 MG/DL (60-110); HEMOGLOBIN A1c 6.6 %
== END ==
LOC: M SFHCADAM 07:55
DX: I10 Essential (primary) hypertension (principal); E78.5 Hyperlipidemia, unspecified; R73.09 Other abnormal glucose; E55.9 Vitamin D deficiency, unspecified
CPT/HCPCS: 80053

== ENCOUNTER → 2018-11-27 | Outpatient (CLI) | payer BC ==
[~2018-11-27] MED LIST changes: +MELO15TA28 PO; -MELO15TA4 PO; -TOPR25TA PO; +TOPR25TA13 PO
--- NOTE | 2018-11-27 09:10 | REPMRS ---
Patient History The patient states she had a clinical breast exam in 09/11 Family history of breast cancer at age 50 or over in paternal aunt. Took progesterone for 4 months. Digital Woman Screen Mammo: November 27, 2018 - Exam #: [id number] Bilateral CC and MLO view(s) were taken. Technologist: Faye Price, Technologist Prior study comparison: July 30, 2017, digital woman screen mammo performed at [facility]. May 14, 2016, digital woman screen mammo performed at [facility]. May 08, 2015, digital woman screen mammo performed at [facility]. FINDINGS: There are scattered fibroglandular densities. There is a stable intramammary lymph node in the right breast laterally. Similarly, there are two or three stable benign subcentimeter nodules in the left breast. There has been no change in the appearance of the mammogram from the prior studies. There is a mild amount of scattered fibroglandular density which is fairly symmetric. There is no interval development of dominant mass, architectural distortion, or clustered microcalcification suggestive of malignancy. 3-D tomosynthesis shows no additional findings. Assessment: BI-RADS/ACR category 2 mammogram. Benign finding(s). Recommendation Routine screening mammogram of both breasts in 1 year (for women over age 40). This patient's Lifetime Breast Cancer RIsk is estimated at 16.5 %. This mammogram was interpreted with the aid of an FDA-approved computer-aided dectection system. Electronically Signed By: Guillermo Quinn MD 11/27/18 [id number]
== END ==
LOC: M WHC 08:04
PROVIDERS: ATTEND Nurse Practitioner Women's Health
DX: Z12.31 Encounter for screening mammogram for malignant neoplasm of breast (principal)

== ENCOUNTER → 2018-11-27 | Outpatient (REF) | payer OTHER ==
[2018-12-02 14:37] LABS: HPV HYBRID CAPTURE II Negative (Negative)
== END ==
LOC: M SFHCWAGY 09:38
PROVIDERS: ATTEND Nurse Practitioner Women's Health
DX: Z12.4 Encounter for screening for malignant neoplasm of cervix (principal)

== ENCOUNTER → 2019-02-28 | Outpatient (REF) | payer OTHER ==
[~2019-02-28] MED LIST changes: +TOPR25TA PO; -TOPR25TA13 PO
[2019-02-28 22:48] LABS: INFLUENZA A AMPLIFICATION NEGATIVE (NEGATIVE); INFLUENZA B AMPLIFICATION NEGATIVE (NEGATIVE)
== END ==
LOC: M LAB REF 08:25
PROVIDERS: ATTEND Physician Assistant
DX: R50.9 Fever, unspecified (principal)

== ENCOUNTER → 2019-03-02 | Outpatient (REF) | payer OTHER ==
[2019-03-02 13:16] LABS: BASO # 0.1 10^3/uL (0.0-0.2); BASO % 0.9 % (0.0-1.0); EOS # 0.2 10^3/uL (0.0-0.50); EOS % 3.4 % (0.0-3.0); HEMATOCRIT 42.5 % (36.0-47.0); HEMOGLOBIN 13.2 g/dl (12.0-15.5); LYMPH # 1.8 10^3/uL (1.5-4.5); LYMPH % 30.1 % (24.0-44.0); MEAN CORPUSCULAR HEMOGLOBIN 29.9 pg (27.0-33.0); MEAN CORPUSCULAR HGB CONC 31.1 g/dl (32.0-36.5); MEAN CORPUSCULAR VOLUME 96.4 fl (80.0-96.0); MONO # 0.9 10^3/uL (0.0-0.8); MONO % 15.4 % (0.0-5.0); NEUTROPHILS # 2.9 10^3/uL (1.8-7.7); PLATELET COUNT, AUTOMATED 241 10^3/uL (150-450); RED BLOOD COUNT 4.41 10^6/uL (4.00-5.40); WHITE BLOOD COUNT 5.8 10^3/uL (4.0-10.0)
[2019-03-02 13:26] LABS: ALBUMIN 3.4 GM/DL (3.2-5.2); ALT/SGPT 28 U/L (12-78); BILIRUBIN,TOTAL 0.4 MG/DL (0.2-1.0); BLOOD UREA NITROGEN 19 MG/DL (7-18); CALCIUM LEVEL 9.1 MG/DL (8.5-10.1); CARBON DIOXIDE LEVEL 31 MEQ/L (21-32); CHLORIDE LEVEL 105 MEQ/L (98-107); CHOLESTEROL LEVEL 198 MG/DL (<200); CHOLESTEROL RISK RATIO 3.046 (<5); CREATININE FOR GFR 0.68 MG/DL (0.55-1.30); GLOMERULAR FILTRATION RATE > 60.0 (>51); GLUCOSE, FASTING 108 MG/DL (70-100); HDL CHOLESTEROL 65 MG/DL (>40); LDL CHOLESTEROL 113 MG/DL (<100); NON-HDL-C 133 MG/DL; POTASSIUM SERUM 4.6 MEQ/L (3.5-5.1); SODIUM LEVEL 140 MEQ/L (136-145); TOTAL PROTEIN 6.8 GM/DL (6.4-8.2); TRIGLYCERIDES LEVEL 100 MG/DL (<150)
[2019-03-02 13:49] LABS: HEMOGLOBIN A1c 6.5 %
== END ==
LOC: M SFHCADAM 08:00
PROVIDERS: ATTEND Physician Assistant
DX: I10 Essential (primary) hypertension (principal); E78.5 Hyperlipidemia, unspecified; R73.09 Other abnormal glucose

== ENCOUNTER → 2019-04-08 | Outpatient (REF) | payer OTHER ==
[2019-04-08 13:42] LABS: THYROID STIMULATING HORMONE 1.38 uIU/ML (0.358-3.740)
[2019-04-09 09:18] LABS: THYROID PEROXIDASE ANTIBODY 41.8 U/ML (<60.0)
== END ==
LOC: M LABDRWAD 12:17
PROVIDERS: ATTEND Internal Medicine Endocrinology, Diabetes & Metabolism
DX: E04.2 Nontoxic multinodular goiter (principal)

== ENCOUNTER → 2019-05-12 | Outpatient (CLI) | payer BC, OTHER ==
--- NOTE | 2019-05-12 15:09 | REP ---
PA and lateral chest: Comparison is 05/31/2017. The lung mcleod are clear. The cardiac size is normal. The qi, mediastinum, and skeletal structures are unremarkable. Impression: Negative PA and lateral chest. There is no interval change. Electronically Signed by Cecilio Farrell MD 05/12/2019 03:01 P
== END ==
LOC: M SMT 14:41
PROVIDERS: ATTEND Nurse Practitioner Family
DX: R06.00 Dyspnea, unspecified (principal)

== ENCOUNTER → 2019-07-01 | Outpatient (REF) | payer OTHER | LOC: M LAB REF 12:01 | PROVIDERS: ATTEND Physician Assistant | DX: J02.9 Acute pharyngitis, unspecified (principal) ==

== ENCOUNTER → 2019-09-01 | Outpatient (REF) | payer OTHER ==
[2019-09-01 12:58] LABS: BASO % 0.6 % (0.0-1.0); EOS # 0.2 10^3/uL (0.0-0.5); EOS % 3.2 % (0.0-3.0); HEMATOCRIT 42.8 % (36.0-47.0); HEMOGLOBIN 13.2 g/dl (12.0-15.5); LYMPH # 1.7 10^3/uL (1.5-5.0); LYMPH % 27.2 % (24.0-44.0); MEAN CORPUSCULAR HEMOGLOBIN 30.3 pg (27.0-33.0); MEAN CORPUSCULAR HGB CONC 30.8 g/dl (32.0-36.5); MEAN CORPUSCULAR VOLUME 98.2 fl (80.0-96.0); MONO # 0.6 10^3/uL (0.0-0.8); MONO % 10.3 % (0.0-5.0); NEUTROPHILS # 3.6 10^3/uL (1.5-8.5); NEUTROPHILS % 58.5 % (36.0-66.0); PLATELET COUNT, AUTOMATED 251 10^3/uL (150-450); RED BLOOD COUNT 4.36 10^6/uL (4.00-5.40); WHITE BLOOD COUNT 6.2 10^3/uL (4.0-10.0)
[2019-09-01 13:14] LABS: ALBUMIN 3.6 GM/DL (3.2-5.2); ALT/SGPT 26 U/L (12-78); BILIRUBIN,TOTAL 0.5 MG/DL (0.2-1.0); BLOOD UREA NITROGEN 21 MG/DL (7-18); CALCIUM LEVEL 9.6 MG/DL (8.5-10.1); CARBON DIOXIDE LEVEL 30 MEQ/L (21-32); CHLORIDE LEVEL 106 MEQ/L (98-107); CHOLESTEROL LEVEL 191 MG/DL (<200); CHOLESTEROL RISK RATIO 2.728 (<5); CREATININE FOR GFR 0.76 MG/DL (0.55-1.30); FREE T4 0.98 NG/DL (0.76-1.46); GLOMERULAR FILTRATION RATE > 60.0 (>51); GLUCOSE, FASTING 108 MG/DL (70-100); HDL CHOLESTEROL 70 MG/DL (>40); LDL CHOLESTEROL 89 MG/DL (<100); NON-HDL-C 121 MG/DL; POTASSIUM SERUM 4.9 MEQ/L (3.5-5.1); SODIUM LEVEL 141 MEQ/L (136-145); TRIGLYCERIDES LEVEL 159 MG/DL (<150)
[2019-09-01 13:15] LABS: TOTAL 25(OH) VITAMIN D 41.6 NG/ML (30.0-100.0)
[2019-09-01 13:37] LABS: HEMOGLOBIN A1c 6.5 %
[2019-09-01 14:03] LABS: CREATININE, URINE 94.2 MG/DL; MALB URINE SIEMENS 16.1 MG/L
== END ==
LOC: M SFHCADAM 07:55
PROVIDERS: ATTEND Physician Assistant
DX: I10 Essential (primary) hypertension (principal); E78.5 Hyperlipidemia, unspecified; E04.1 Nontoxic single thyroid nodule; R73.01 Impaired fasting glucose; E55.9 Vitamin D deficiency, unspecified

== ENCOUNTER → 2019-12-03 | Outpatient (CLI) | payer BC ==
[~2019-12-03] MED LIST changes: -SIMV40TA2 PO; +SIMV40TA20 PO
--- NOTE | 2019-12-03 11:19 | REPMRS ---
Patient History The patient states she had a clinical breast exam in 2019. Family history of breast cancer at age 50 or over in paternal aunt. Took progesterone for 4 months. Digital Woman Screen Mammo: December 03, 2019 - Exam #: [id number] Bilateral CC and MLO view(s) were taken. Technologist: Brii Perez, Technologist Prior study comparison: November 27, 2018, bilateral digital woman screen mammo performed at [facility]. July 30, 2017, digital woman screen mammo performed at [facility]. May 14, 2016, digital woman screen mammo performed at [facility]. FINDINGS: There are scattered fibroglandular densities. There are multiple small subcentimeter well circumscribed nodules bilaterally. There has been no change in the appearance of the mammogram from the prior studies. There is a mild amount of scattered fibroglandular density which is fairly symmetric. There is no interval development of dominant mass, architectural distortion, or grouped microcalcification suggestive of malignancy. 3-D tomosynthesis shows no additional findings. Assessment: BI-RADS/ACR category 2 mammogram. Benign Findings. Recommendation Routine screening mammogram of both breasts in 1 year (for women over age 40). This patient's Lifetime Breast Cancer Risk is estimated at 16.0 %. This mammogram was interpreted with the aid of an FDA-approved computer-aided dectection system. Electronically Signed By: Guillermo Quinn MD 12/03/19 1342
== END ==
LOC: M WHC 08:31
PROVIDERS: ATTEND Nurse Practitioner Women's Health
DX: Z12.31 Encounter for screening mammogram for malignant neoplasm of breast (principal)

== ENCOUNTER → 2020-03-01 | Outpatient (REF) | payer OTHER ==
[2020-03-01 13:18] LABS: BASO # 0.1 10^3/uL (0.0-0.2); BASO % 0.6 % (0.0-1.0); EOS # 0.3 10^3/uL (0.0-0.5); EOS % 3.4 % (0.0-3.0); HEMATOCRIT 41.8 % (36.0-47.0); HEMOGLOBIN 12.9 g/dl (12.0-15.5); LYMPH # 2.2 10^3/uL (1.5-5.0); LYMPH % 27.3 % (24.0-44.0); MEAN CORPUSCULAR HEMOGLOBIN 29.5 pg (27.0-33.0); MEAN CORPUSCULAR HGB CONC 30.9 g/dl (32.0-36.5); MEAN CORPUSCULAR VOLUME 95.7 fl (80.0-96.0); MONO # 0.8 10^3/uL (0.0-0.8); MONO % 10.4 % (0.0-5.0); NEUTROPHILS # 4.7 10^3/uL (1.5-8.5); NEUTROPHILS % 58.1 % (36.0-66.0); PLATELET COUNT, AUTOMATED 275 10^3/uL (150-450); RED BLOOD COUNT 4.37 10^6/uL (4.00-5.40)
[2020-03-01 13:32] LABS: HEMOGLOBIN A1c 6.3 %
[2020-03-01 13:51] LABS: ALBUMIN 3.5 GM/DL (3.2-5.2); ALT/SGPT 33 U/L (12-78); BILIRUBIN,TOTAL 0.4 MG/DL (0.2-1.0); BLOOD UREA NITROGEN 17 MG/DL (7-18); CALCIUM LEVEL 9.4 MG/DL (8.8-10.2); CARBON DIOXIDE LEVEL 31 MEQ/L (21-32); CHLORIDE LEVEL 105 MEQ/L (98-107); CHOLESTEROL LEVEL 193 MG/DL (<200); CHOLESTEROL RISK RATIO 3.163 (<5); CREATININE FOR GFR 0.72 MG/DL (0.55-1.30); FREE T4 1.09 NG/DL (0.76-1.46); GLOMERULAR FILTRATION RATE > 60.0 (>45); GLUCOSE, FASTING 107 MG/DL (70-100); HDL CHOLESTEROL 61 MG/DL (>40); LDL CHOLESTEROL 107 MG/DL (<100); NON-HDL-C 132 MG/DL; POTASSIUM SERUM 5.1 MEQ/L (3.5-5.1); SODIUM LEVEL 140 MEQ/L (136-145); TOTAL 25(OH) VITAMIN D 60.5 NG/ML (30.0-100.0); TOTAL PROTEIN 7.1 GM/DL (6.4-8.2); TRIGLYCERIDES LEVEL 127 MG/DL (<150)
== END ==
LOC: M SFHCADAM 08:00
PROVIDERS: ATTEND Physician Assistant
DX: E78.5 Hyperlipidemia, unspecified (principal); I10 Essential (primary) hypertension; E04.1 Nontoxic single thyroid nodule; R73.09 Other abnormal glucose; E55.9 Vitamin D deficiency, unspecified

== ENCOUNTER → 2020-09-18 | Outpatient (REF) | payer OTHER ==
[2020-09-18 13:12] LABS: BASO % 0.6 % (0.0-1.0); EOS # 0.1 10^3/uL (0.0-0.5); EOS % 1.2 % (0.0-3.0); HEMATOCRIT 41.7 % (36.0-47.0); HEMOGLOBIN 12.5 g/dl (12.0-15.5); LYMPH # 1.6 10^3/uL (1.5-5.0); LYMPH % 23.8 % (24.0-44.0); MEAN CORPUSCULAR HEMOGLOBIN 28.7 pg (27.0-33.0); MEAN CORPUSCULAR VOLUME 95.9 fl (80.0-96.0); MONO # 0.7 10^3/uL (0.0-0.8); MONO % 10.5 % (0.0-5.0); NEUTROPHILS # 4.3 10^3/uL (1.5-8.5); NEUTROPHILS % 63.8 % (36.0-66.0); PLATELET COUNT, AUTOMATED 289 10^3/uL (150-450); RED BLOOD COUNT 4.35 10^6/uL (4.00-5.40); WHITE BLOOD COUNT 6.8 10^3/uL (4.0-10.0)
[2020-09-18 13:42] LABS: BLOOD UREA NITROGEN 19 MG/DL (7-18); CALCIUM LEVEL 9.3 MG/DL (8.8-10.2); CARBON DIOXIDE LEVEL 31 MEQ/L (21-32); CHLORIDE LEVEL 105 MEQ/L (98-107); CREATININE FOR GFR 0.66 MG/DL (0.55-1.30); GLOMERULAR FILTRATION RATE > 60.0 (>45); GLUCOSE, FASTING 116 MG/DL (70-100); MAGNESIUM LEVEL 2.2 MG/DL (1.8-2.4); POTASSIUM SERUM 4.9 MEQ/L (3.5-5.1); SODIUM LEVEL 138 MEQ/L (136-145)
== END ==
LOC: M LABDRWAD 12:38
PROVIDERS: ATTEND Physician Assistant
DX: R42 Dizziness and giddiness (principal)

== ENCOUNTER → 2020-12-13 | Outpatient (CLI) | payer BC ==
--- NOTE | 2020-12-13 14:34 | REPMRS ---
Patient History The patient states she had a clinical breast exam 3 months ago.Family history of breast cancer at age 50 or over in paternal aunt. Took progesterone for 4 months. 3D TOMOSYNTHESIS WAS PERFORMED. [facility] for [facility] 15.5%. Volpara breast density b. Digital Woman Screen Mammo: December 13, 2020 - Exam #: [id number] Bilateral CC and MLO view(s) were taken. Technologist: Mary Carmen Eubanks, Technologist Prior study comparison: December 03, 2019, bilateral digital woman screen mammo performed at [facility]. November 27, 2018, bilateral digital woman screen mammo performed at [facility]. FINDINGS: There are scattered fibroglandular densities. There has been no change in the appearance of the mammogram from the prior studies. There is a mild amount of residual fibroglandular tissue which is fairly symmetric. There is no interval development of dominant mass, architectural distortion, or clustered microcalcification suggestive of malignancy. Assessment: BI-RADS/ACR category 1 mammogram. Negative Mammogram. Recommendation Routine screening mammogram in 1 year (for women over age 40). This mammogram was interpreted with the aid of an FDA-approved computer-aided dectection system. Electronically Signed By: Cecilio Tsai MD 12/13/20 [id number]
== END ==
LOC: M WHC 13:37
PROVIDERS: ATTEND Physician Assistant Medical
DX: Z12.31 Encounter for screening mammogram for malignant neoplasm of breast (principal)

== ENCOUNTER → 2021-01-25 | Outpatient (REF) | payer OTHER ==
[2021-01-25 17:33] LABS: BASO # 0.1 10^3/uL (0.0-0.2); BASO % 0.6 % (0.0-1.0); EOS # 0.2 10^3/uL (0.0-0.5); EOS % 2.3 % (0.0-3.0); HEMATOCRIT 40.5 % (36.0-47.0); HEMOGLOBIN 12.4 g/dl (12.0-15.5); LYMPH # 2.4 10^3/uL (1.5-5.0); LYMPH % 29.5 % (24.0-44.0); MEAN CORPUSCULAR HEMOGLOBIN 29.2 pg (27.0-33.0); MEAN CORPUSCULAR HGB CONC 30.6 g/dl (32.0-36.5); MEAN CORPUSCULAR VOLUME 95.3 fl (80.0-96.0); NEUTROPHILS # 4.6 10^3/uL (1.5-8.5); NEUTROPHILS % 55.5 % (36.0-66.0); PLATELET COUNT, AUTOMATED 284 10^3/uL (150-450); RED BLOOD COUNT 4.25 10^6/uL (4.00-5.40); WHITE BLOOD COUNT 8.2 10^3/uL (4.0-10.0)
[2021-01-25 17:55] LABS: HEMOGLOBIN A1c 6.1 %
[2021-01-25 18:06] LABS: ALBUMIN 3.4 GM/DL (3.2-5.2); ALT/SGPT 28 U/L (12-78); BILIRUBIN,TOTAL 0.3 MG/DL (0.2-1.0); BLOOD UREA NITROGEN 23 MG/DL (7-18); CALCIUM LEVEL 9.4 MG/DL (8.8-10.2); CARBON DIOXIDE LEVEL 32 MEQ/L (21-32); CHLORIDE LEVEL 104 MEQ/L (98-107); CHOLESTEROL LEVEL 191 MG/DL (<200); CHOLESTEROL RISK RATIO 3.237 (<5); CPK CREATINE PHOSPHOKINASE 121 U/L (26-192); CREATININE FOR GFR 0.93 MG/DL (0.55-1.30); GLOMERULAR FILTRATION RATE > 60.0 (>45); GLUCOSE, FASTING 129 MG/DL (70-100); HDL CHOLESTEROL 59 MG/DL (>40); LDL CHOLESTEROL 87 MG/DL (<100); NON-HDL-C 132 MG/DL; PTH INTACT 47.5 PG/ML (18.5-88.0); SODIUM LEVEL 140 MEQ/L (136-145); TOTAL 25(OH) VITAMIN D 57.2 NG/ML (30.0-100.0); TRIGLYCERIDES LEVEL 226 MG/DL (<150)
== END ==
LOC: M SFHCPLAZ 15:24
PROVIDERS: ATTEND Physician Assistant Medical
DX: I10 Essential (primary) hypertension (principal); E78.5 Hyperlipidemia, unspecified; R73.01 Impaired fasting glucose; E55.9 Vitamin D deficiency, unspecified

== ENCOUNTER → 2021-02-05 | Outpatient (CLI) | payer BC, OTHER ==
--- NOTE | 2021-02-05 22:28 | REP ---
INDICATION: OCCLUSION AND STENOSIS OF CAROTID COMPARISON: 01/20/2015 TECHNIQUE: Tsai scale and color Doppler evaluation using linear high frequency transducer Findings: FINDINGS: Two-dimensional tsai scale and color images demonstrate mild to moderate mixed atheromatous plaquing through the left carotid system. The right carotid system demonstrates mild to moderate mixed atheromatous plaquing to the level of the carotid bulb with trickle flow through the proximal internal carotid artery and occlusion of the mid/distal internal carotid artery noted. Normal Doppler flow direction through the vertebral arteries. ICA peak systolic velocity: Right 34.2 cm/s; Left 112.7 cm/s ICA diastolic velocity: Right 7.3 cm/s; Left 34.6 cm/s ECA peak systolic velocity: Right 103.5 cm/s; Left 101.7 cm/s CCA peak systolic velocity: Right 59.5 cm/s; Left 82.1 cm/s ICA/CCA ratio: Right 0.57 cm/s; Left 1.37 cm/s IMPRESSION: Right carotid artery demonstrates narrowing in the less than 50% range. There is occlusion of the left internal carotid artery just past the proximal portion. <Electronically signed by Artemio Farley > 02/05/21 1131
== END ==
LOC: M RAD 15:35
PROVIDERS: ATTEND Surgery Vascular Surgery
DX: I65.21 Occlusion and stenosis of right carotid artery (principal)

== ENCOUNTER → 2021-04-12 | Outpatient (REF) | payer OTHER ==
[2021-04-12 16:27] LABS: LABILE ALKPHOS 47 U/L; STABLE ALKPHOS 87 U/L
[2021-04-12 16:28] LABS: % LABILE ALKALINE PHOSPHATASE 35.1 %
[2021-04-12 16:35] LABS: HEPATITIS A ANTIBODY IGM NEGATIVE (NEGATIVE); HEPATITIS B SURFACE ANTIBODY NEGATIVE (POSITIVE); HEPATITIS B SURFACE ANTIGEN NEGATIVE (NEGATIVE)
== END ==
LOC: M SFHCPLAZ 13:54
PROVIDERS: ATTEND Physician Assistant Medical
DX: Z02.1 Encounter for pre-employment examination (principal)

== ENCOUNTER → 2021-04-12 | Outpatient (CLI) | payer BC, OTHER ==
--- NOTE | 2021-04-13 01:20 | REPPI ---
INDICATION: Z02.1 PRE-EMPLOYMENT COMPARISON: 05/03/2020 TECHNIQUE: PA and lateral. FINDINGS: The mediastinum and cardiac silhouette are normal. The lung mcleod are clear and without acute consolidation, effusion, or pneumothorax. The skeletal structures are intact and normal. IMPRESSION: No acute cardiopulmonary process. <Electronically signed by Artemio Farley > 04/13/21 0116
== END ==
LOC: M PLAIMG 13:55
PROVIDERS: ATTEND Physician Assistant Medical
DX: Z02.1 Encounter for pre-employment examination (principal)

== ENCOUNTER → 2021-06-15 | Outpatient (CLI) | payer BC, OTHER ==
[~2021-06-15] MED LIST changes: +ALBU8.5H; +ATOR80TA59 PO; +CALC1TAB30 PO; +ECOT81TA5 PO; +ERGO500029 PO; +FISH1000 PO; +METF500T13 PO; +METO1TAB32 PO; +RA T500C2 PO
== END ==
LOC: M LABSMTC 09:35
PROVIDERS: ATTEND Anesthesiology
DX: Z01.818 Encounter for other preprocedural examination (principal); Z20.822 Contact with and (suspected) exposure to COVID-19

== ENCOUNTER 2021-06-20 06:51 | Day surgery (SDC) | payer BC, OTHER ==
[~2021-06-20] VITALS: Ht 170.2 cm; Wt 103.3 kg
[~2021-06-20 06:51] MED LIST changes: +NS 1,000 ML IV ONE
[2021-06-20] MEDS ORDERED: LIDOCAINE 2% 100MG/5ML SDV (FOR ANES.) As Ordered ONE (07:30)
[2021-06-20] MEDS ORDERED: propofoL 200 MG/20 ML VIAL As Ordered ONE ×2 (07:30→07:36)
--- NOTE | 2021-06-20 07:48 | ROOR ---
Patient Name: Lily Hernandez Procedure Date: 06/20/2021 7:26 AM Date of : 1960 Age: 60 Room: [facility] Gender: Female Note Status: Finalized Procedure: Total Colonoscopy to Cecum + ileoscopy Indications: Screening for colorectal malignant neoplasm, Last colonoscopy: 2011 Providers: Obed Heller MD Referring MD: Chantelle GONZALEZ Requesting Provider: Medicines: Monitored Anesthesia Care Complications: No immediate complications. Procedure: Pre-Anesthesia Assessment: - The heart rate, respiratory rate, oxygen saturations, blood pressure, adequacy of pulmonary ventilation, and response to care were monitored throughout the procedure. The Colonoscope was introduced through the anus and advanced to the cecum, identified by appendiceal orifice and ileocecal valve. The colonoscopy was performed without difficulty. The patient tolerated the procedure well. The quality of the bowel preparation was excellent. Findings: The perianal and digital rectal examinations were normal. Non-bleeding internal hemorrhoids were found during retroflexion. The hemorrhoids were small and Grade I (internal hemorrhoids that do not prolapse). Multiple small and large-mouthed diverticula were found in the recto-sigmoid colon, sigmoid colon and descending colon. The exam was otherwise without abnormality on direct and retroflexion views. The terminal ileum appeared normal. Impression: - Non-bleeding internal hemorrhoids. - Diverticulosis in the recto-sigmoid colon, in the sigmoid colon and in the descending colon. - The examination was otherwise normal on direct and retroflexion views. - The examined portion of the ileum was normal. - No specimens collected. - The exam was otherwise normal to the cecum. Recommendation: - Patient has a contact number available for emergencies. The signs and symptoms of potential delayed complications were discussed with the patient. Return to normal activities tomorrow. Written discharge instructions were provided to the patient. - High fiber diet. - Discharge patient to home. - Continue present medications. - Repeat colonoscopy in 10 years for screening purposes. - Return to referring physician. - The findings and recommendations were discussed with the patient's family. Procedure Code(s): --- Professional --- 27094, Colonoscopy, flexible; diagnostic, including collection of specimen(s) by brushing or washing, when performed (separate procedure) Diagnosis Code(s): --- Professional --- Z12.11, Encounter for screening for malignant neoplasm of colon K64.0, First degree hemorrhoids K57.30, Diverticulosis of large intestine without perforation or abscess without bleeding CPT copyright 2019 [employer]. All rights reserved. The codes documented in this report are preliminary and upon motor scooter repairer review may be revised to meet current compliance requirements. Obed Heller MD Obed Heller MD 06/20/2021 7:47:50 AM Electronically signed by Obed Heller MD Number of Addenda: 0 Note Initiated On: 06/20/2021 7:26 AM Estimated Blood Loss: Estimated blood loss: none.
[2021-06-20 08:05] VITALS: BP 169/86
== END 2021-06-20 08:16 | disposition home or self-care (01) ==
LOC: M OPP 06:51
PROVIDERS: ATTEND Internal Medicine Gastroenterology
DX: Z12.11 Encounter for screening for malignant neoplasm of colon (principal); K57.30 Diverticulosis of large intestine without perforation or abscess without bleeding; K64.0 First degree hemorrhoids; E11.9 Type 2 diabetes mellitus without complications; Z79.82 Long term (current) use of aspirin; Z79.84 Long term (current) use of oral hypoglycemic drugs; Z79.899 Other long term (current) drug therapy; Z87.891 Personal history of nicotine dependence; Z86.73 Personal history of transient ischemic attack (TIA), and cerebral infarction without residual deficits

== ENCOUNTER → 2021-07-02 | Outpatient (CLI) | payer BC, OTHER ==
[~2021-07-02] MED LIST changes: +CLOP75TA2; +HYDR-3490; -NS 1,000 ML IV ONE
[2021-07-02 17:31] LABS: BLOOD UREA NITROGEN 19 MG/DL (7-18); CREATININE FOR GFR 0.73 MG/DL (0.55-1.30); GLOMERULAR FILTRATION RATE > 60.0 (>45); GLUCOSE, FASTING 83 MG/DL (70-100); SODIUM LEVEL 140 MEQ/L (136-145)
[2021-07-02 17:32] LABS: ALBUMIN 3.7 GM/DL (3.2-5.2); ALT/SGPT 30 U/L (12-78); BILIRUBIN,TOTAL 0.3 MG/DL (0.2-1.0); CALCIUM LEVEL 9.6 MG/DL (8.8-10.2); CARBON DIOXIDE LEVEL 31 MEQ/L (21-32); CHLORIDE LEVEL 105 MEQ/L (98-107); POTASSIUM SERUM 4.5 MEQ/L (3.5-5.1); TOTAL PROTEIN 7.4 GM/DL (6.4-8.2)
== END ==
LOC: M PLALAB 15:57
PROVIDERS: ATTEND Physician Assistant Medical
DX: E78.5 Hyperlipidemia, unspecified (principal); R73.01 Impaired fasting glucose

== ENCOUNTER → 2021-07-12 | Outpatient (CLI) | payer BC, OTHER ==
[~2021-07-12] MED LIST changes: -CLOP75TA2; -HYDR-3490
== END ==
LOC: M SLEEP HO 11:20
PROVIDERS: ATTEND Physician Assistant Medical
DX: R06.81 Apnea, not elsewhere classified (principal)

== ENCOUNTER 2021-09-23 14:13 | Emergency (ER) | payer BC, OTHER ==
[~2021-09-23] VITALS: Ht 170.2 cm; Wt 103.2 kg
[2021-09-23 14:13] VITALS: BP 169/72
[2021-09-23] MEDS ORDERED: CLOP75TA2 (14:19)
[2021-09-23] MEDS ORDERED: HYDR-3490 (14:19)
--- OUTSIDE RECORDS SUMMARY | 2021-09-23 14:19 | CCD ---
Author Author [facility] Organization [facility] Address Unknown Phone Unavailable Care Team Providers Care Glassblower Name Role Phone Chantelle López Unavailable PROBLEMS Type Condition ICD9-CM Code VLK73-IV Code Onset Dates Condition S tatus W/U Status Risk SNOMED Code Notes Problem ICAO (internal carotid artery occlusion) I65.29 Active confirmed 121497881793251 Problem Hyperlipidemia E78.5 Active confirmed 44647 004 Problem History of CVA (cerebrovascular accident) Z86.73 Active confirmed 556391715 Problem Status post right hip replacement Z96.641 Active confirmed 045677339 Problem Hypertension I10 Active confirmed 0557478 3 Problem Restrictive lung disease J98.4 Active confirmed 77020595 Problem Endometrial hyperplasia, simple N85.01 Active confi rmed 867258407 Problem Vitamin D deficiency E55.9 Active confirmed 78439013 Problem Colon cancer screening Z12.11 Active confirmed 259782004 Problem Chronic obstructive pulmonary disease, unspecified COPD ty pe J44.9 Active confirmed 15538358 Problem Cervical cancer screening Z12.4 Active confirmed 506355909 Problem Seborrheic keratosis L82.1 Active confirmed 924256543 Problem Former smoker Z87.891 Active confirmed 31068 06 Problem Thyroid nodule E04.1 Active confirmed 14968 5005 Problem History of total right hip arthroplasty Z96.641 Active confirmed 889404654507779 Problem Encounter for screening for malignant neoplasm of breast, unspecified screening modality Z12.39 Active confirmed 343539259 ALLERGIES No Known Allergies ENCOUNTERS from 1960 to 2021-07-17 Encounter Location Date Provider Diagnosis [address] [phone] [place] [address] 09 Jun, 2021 Chantelle López Hypertension I10 ; Hyperlipi demia E78.5 ; ICAO (internal carotid artery occlusion) I65.29 ; History of CVA (cerebrovascular accident) Z86.73 ; Chronic obstructive pulmonary disease, unspecified COPD type J44.9 ; Thyroid nodule E04.1 ; Former smoker Z87.891 ; Vitamin D deficiency E55.9 ; Restrictive lung disease J98.4 ; History of total right hip arthroplasty Z96.641 ; Impaired fasting glucose R73.01 ; Asymptomatic varicose veins of both lower extremities I83.93 ; Encounter for screening for malignant neoplasm of breast, unspecified screening modality Z12.39 ; Cervical cancer screening Z12.4 ; Colon cancer screening Z12.11 and Apnea R06.81 IMMUNIZATIONS Vaccine Route Administration Date Status Influenza 18 yrs & older Flublok IM Intramuscular Sep 08, 2019 Administered Pneumococcal 0.5mL Prevnar 13 IM Intramuscular February 02, 2018 A dministered TDAP 0.5mL (Boostrix) IM Intramuscular April 09, 2017 Administe red Influenza 6mo & up Fluzone IM Intramuscular Sep 04, 2016 Admi nistered Influenza 6mo & up Fluzone IM Intramuscular Aug 28, 2015 Admi nistered Influenza 6mo & up Fluzone IM Intramuscular Oct 06, 2014 Admi nistered Influenza 6mo & up Fluzone IM Intramuscular Sep 22, 2013 Admi nistered SOCIAL HISTORY Tobacco Use: Social History Observation Description Date Details (start date - stop date) Former Smoker Sex Assigned At : Social History Observation Description Sex Assigned At Unknown Education: Question Answer Notes Level of Education: Finished High School Buddhism: Question Answer Notes Buddhism 13 Taoist Domestic Violence: Question Answer Notes Status: denies 11/2018 Alcohol Screening: Question Answer Notes Did you have a drink containing alcohol in the past year? Ye s Points 1 Interpretation Negative How often did you have six or more drinks on one occas ion in the past year? Never (0 points) How many drinks did you have on a typica l day when you were drinking in the past year? 1 or 2 (0 points) How often did you have a drink containing alcohol in t he past year? Monthly or less (1 point) BMI Care Goal Follow-Up Question Answer Notes Above Normal BMI Follow-Up Dietary management educatio n, guidance, and counseling Tobacco Use: Question Answer Notes Are you a: former smoker How long has it been since you last smoked? 1-5 years REASON FOR REFERRAL from 1960 to 2021-07-17 Reason 60yocf c apnea post anesthes ia, some snoring, daytime somnolence, awaking fatigued. |Home Sleep TEST Diagnosis 1 Apnea (R06.81) Referral Organization [facility] Clubb Referring Provider First Name Chantelle Referring Provider Last Name Rene Referring Provider Specialty Family Medicine Referred Provider [facility],Sleep Lab Referred Provider Specialty Neurology Referral Priority Urgent General Notes Viridiana Weiss 07/02/2021 3:15 :51 PM > referral was sent VITAL SIGNS Weight 229 lbs Jun, Height 66 in Jun, BMI 36.96 kg/m2 Jun, Heart Rate 87 /min Jun, Respiratory Rate 18 /min Jun, Temperature 97.6 degrees Fahrenheit Jun, Oximetry 96 Jun, Blood pressure systolic 118 mm Hg Jun, Blood pressure diastolic 78 mm Hg Jun, MEDICATIONS Medication SIG (Take, Route, Frequency, Duration) Notes Start Da te End Date Status metFORMIN HCl 500 MG 1 tablet with a meal Orally bid Active Fish Oil Active ProAir RespiClick 108 (90 Base) MCG/ACT 1 puff as need ed Inhalation every 4 hrs for 30 Days Jan, Active Turmeric Curcumin 500 MG as directed Orally Active Ventolin HFA 108 (90 Base) MCG/ACT 1 puff as needed In halation every 4 hrs for 30 Days Active Atorvastatin Calcium 80 MG 1 tablet Orally Once a day Active Aspirin Low Dose 81 MG 1 tablet Orally Once a day Active Calcium 600 MG 1 tablet with meals Orally Twice a day Active Metoprolol Succinate 25 mg 1 capsule Orally Once a day Active Atorvastatin Calcium 80 MG TAKE ONE TABLET BY MOUTH EVERY DAY for 90 Active hydroCHLOROthiazide 25 MG 1 tablet Orally Once a day Active Drisdol 16114 UNIT 1 capsule Orally weekly for 90 day(s) Active Plavix 75 MG 1 tablet Orally Once a day Active PROCEDURES No Information RESULTS Component Value Reference Range Comprehensive Metabolic Profile (CMP) Reviewed date:07/03/2021 16:06:48 Interpretation: Performing Lab:[facility], [facility] [id number] , ,[place] [address] GLUCOSE, FASTING 83 70-100 BLOOD UREA NITROGEN 19 7-18 CREATININE FOR GFR 0.73 0.55-1.30 GLOMERULAR FILTRATION RATE > 60.0 >45 SODIUM LEVEL 140 136-145 POTASSIUM SERUM 4.5 3.5-5.1 CHLORIDE LEVEL 105 98-107 CARBON DIOXIDE LEVEL 31 21-32 CALCIUM LEVEL 9.6 8.8-10.2 AST/SGOT 16 7-37 ALT/SGPT 30 12-78 ALKALINE PHOSPHATASE 130 45-117 BILIRUBIN,TOTAL 0.3 0.2-1.0 TOTAL PROTEIN 7.4 6.4-8.2 ALBUMIN 3.7 3.2-5.2 ALBUMIN/GLOBULIN RATIO 1.0 1.2-2.2 HEMOGLOBIN A1c Reviewed date:07/03/2021 16:07:23 Interpretation: Performing Lab:[facility], [facility] [address] [facility] [address] , ,[place] [address] HEMOGLOBIN A1c 6.0 ESTIMATED AVERAGE GLUCOSE 126 60-110 REASON FOR VISIT 4-5 Monthsc SS MEDICAL (GENERAL) HISTORY Type Description Date Medical History Hypertension Medical History Mixed hyperlipidemia Medical History ischemic CVA of right external capsule o n 01/19/2015 Medical History ICAO (internal carotid artery occlusion) Medical History Tobacco use disorder Medical History Obesity Medical History Right low back pain Medical History Postmenopausal status (age-related) (lobito ural) Medical History simple hyperplasia of endome trium, needs repeat emb in 07/07, done, hyperplasia resolved Medical History Vitamin D Deficiency Medical History Elevated glucose Surgical History D&C 1984 Surgical History Surgical History colonoscopy 04/2012 Surgical History endometrial bx. 01/21/14 Surgical History Right hip replacement 10/31/15 Surgical History colonscopy leonela 05/2021 Hospitalization History surgeries Hospitalization History TIA 01/19/15- 5 Goals Section No Information Health Concerns No Information MEDICAL EQUIPMENT No Information MENTAL STATUS No Information FUNCTIONAL STATUS No Information ASSESSMENTS Encounter Date Diagnosis Assessment Notes Treatment Notes Treatm ent Clinical Notes Jun, Hypertension (ICD-10 - I10) Controlled on Current rx 01/2021 8.2, 12.4&40.5, 284k 08/2020 6.8, 12.5&41.9, 289k 02/2020 wbc 8.0, h&H 12.9&41.8, plats. 275k Jun, Hyperlipidemia (ICD-10 - E78.5) Controlled on current rx 01/2021 87/59/226; cpk 121 02/2020 Ldl 107/hdl 61/TG 127 01/2021 140, 4.0, bun 23/0.93, gluc 129, calc. 9.4ast 12, 28, AP 148 02/2020 NA 140, K5.1, bun/cr 17/0.72, gluc 107, calc. 9.4, ast 15, alt 33 Jun, ICAO (internal carotid artery occlusion) (ICD-10 - I65.29) Asymp. 2014 Right side, Left middle finger c numbness cont.s, follows c Dr. Lloyd Jun, History of CVA (cerebrovascular accident) (ICD-1 0 - Z86.73) cont. current rx was held 5D prior to hip surgery Jun, Chronic obstructive pulmonar y disease, unspecified COPD type (ICD- 10 - J44.9) Uses inhaler c humid nights, before she walks. She can't do 2 COVID new adryan will await, may have exertional Asthma will do trial of ventolin pre-exer. 2017 last adryan Jun, Thyroid nodule (ICD-10 - E04.1) Saw Dr. Pereyra no f/up needed Jun, Former smoker (ICD-10 - Z87.891) quit after CVA 9yrs. ago Jun, Vitamin D deficiency (ICD-10 - E55.9) 01/2021 57.2, 47.5 02/2020 vit. d 60.5, pth i Jun, Restrictive lung disease (ICD-10 - J98.4) Inhalers help some o/w asymp. r/o COPD felt it was asthma Jun, History of total right hip arthroplasty (ICD-10 - Z96.641) @ [facility] 2014 DOING WELL Jun, Impaired fasting glucose (ICD-10 - R73.01) cont. rx, wt. loss 01/2021 6.1 02/2020 a1c 6.3 Jun, Asymptomatic varicose veins of both lower extremities (ICD-10 - I83.93) asymp. Jun, Encounter for screening for malignant neoplasm of breast, unspecified screening modality (ICD-10 - Z12.39) 11/2020 Tomogram cat. 1neg. Jun, Cervical cancer screening (ICD-10 - Z12.4) due 2023 last one 11/2018 HPV-, PAP NILM, atrophy of vagina Jun, Colon cancer screening (ICD-10 - Z12.11) f/u 2030 last done 11Y ago neg. family h/o uncle colon dis. 05/2021 s/p colonoscopy c non-bleeding internal hemorrhoids Grade 1, diverticulosis, no polyps f/u 10Y-Dr. Heller Jun, Apnea (ICD-10 - R06.81) Jun, Other 30" chart revie w, h&p, orders/plan PLAN OF TREATMENT Medication Medication Name Sig Start Date Stop Date Ventolin HFA 108 (90 Base) MCG/ACT 1 puff as needed In halation every 4 hrs for 30 Days Drisdol 94547 UNIT 1 capsule Orally weekly for 90 day(s) Aspirin Low Dose 81 MG 1 tablet Orally Once a day metFORMIN HCl 500 MG 1 tablet with a meal Orally bid hydroCHLOROthiazide 25 MG 1 tablet Orally Once a day Atorvastatin Calcium 80 MG 1 tablet Orally Once a day Metoprolol Succinate 25 mg 1 capsule Orally Once a day Treatment Notes Assessment Notes Clinical Notes Cervical cancer screening due 2023 last one11/2018 HPV-, PAP NILM, atrophy of vagina Hypertension Controlled on Curren t rx01/2021 8.2, 12.4&40.5, 284k10 6.8, 12.5&41.9, 289k4 wbc 8.0, h&H 12.9&41.8, plats. 275k Encounter for screening for malignant ne oplasm of breast, unspecified screening modality 11/2020 Tomogram cat. 1neg. Hyperlipidemia Controlled on curren t rx01/2021 87/59/226; cpk 12102/2020 Ldl 107/hdl 61/TG 12701/2021 140, 4.0, bun 23/0.93, gluc 129, calc. 9.4ast 12, 28[place] [address]/2020 NA 140, K5.1, bun/cr 17/0.72, gluc 107, calc. 9.4, ast 15, alt 33 ICAO (internal carotid artery occlusion) Asymp.2014 Right side, Left middle finger c numbness cont.s, follows c Dr. Lloyd Colon cancer screening f/u ast done 11Y ago neg. family h/o uncle colon dis.05/2021 s/p colonoscopy c non-bleeding internal hemorrhoids Grade 1, diverticulosis, no polyps f/u 10Y-Dr. Heller History of CVA (cerebrovascular accident) cont. current rx was held 5D prior to hip surgery Chronic obstructive pulmonary disease, unspecified COPD type Uses inhaler c humid nights, before she walks. She can't do 2 COVID new adryan will await, may have exertional Asthma will do trial of ventolin pre-exer.2016 last adryan Thyroid nodule Saw Dr. Pereyra no f/up needed Former smoker quit after CVA 9yrs. ago Asymptomatic varicose veins of both lower extremities asymp. Impaired fasting glucose cont. rx, wt. l oss01/2021 6. a1c 6.3 Vitamin D deficiency 01/2021 57.2, 47.54/ 2019 vit. d 60.5, pth i Restrictive lung disease Inhalers help s ome o/w asymp. r/o COPD felt it was asthma History of total right hip arthroplasty @ [facility] IN 2014 DOING WELL Future Test Test Name Order Date [facility] Van Screening Bilateral (Ultrasound if Indicated ) (3D Mammo) [id number] Referrals Referral Date Details 60yocf c apnea post anesthes ia, some snoring, daytime somnolence, awaking fatigued. |Home Sleep TEST, Sleep Lab [facility] Next Appt Details 4-5 Months c SS Reason: Provider Name:Chantelle López, 12-03 02:30:00 PM, [address] [facility], , [place], [address], Insurance Providers Payer Name Payer Address Payer Phone Insured Name Patient Relati onship to Insured Coverage Start Date Coverage End Date [facility] [address] [facility] [id number] [phone] FELIPE BURNS [id number]
--- OUTSIDE RECORDS SUMMARY | 2021-09-23 14:19 | CCD ---
Author Author [facility] Organization [facility] Address Unknown Phone Unavailable Care Team Providers Care Manager Consumer Insights Name Role Phone Chantelle López Unavailable PROBLEMS Type Condition ICD9-CM Code NPT00-YM Code Onset Dates Condition S tatus W/U Status Risk SNOMED Code Notes Problem ICAO (internal carotid artery occlusion) I65.29 Active confirmed 312312869285421 Problem Hyperlipidemia E78.5 Active confirmed 23529 004 Problem History of CVA (cerebrovascular accident) Z86.73 Active confirmed 967446226 Problem Status post right hip replacement Z96.641 Active confirmed 346265806 Problem Hypertension I10 Active confirmed 2711472 3 Problem Restrictive lung disease J98.4 Active confirmed 33368176 Problem Endometrial hyperplasia, simple N85.01 Active confi rmed 561924895 Problem Vitamin D deficiency E55.9 Active confirmed 00770511 Problem Colon cancer screening Z12.11 Active confirmed 874573565 Problem Chronic obstructive pulmonary disease, unspecified COPD ty pe J44.9 Active confirmed 38303174 Problem Cervical cancer screening Z12.4 Active confirmed 131102081 Problem Seborrheic keratosis L82.1 Active confirmed 636415973 Problem Former smoker Z87.891 Active confirmed 36376 06 Problem Thyroid nodule E04.1 Active confirmed 84375 5005 Problem History of total right hip arthroplasty Z96.641 Active confirmed 898836768828908 Problem Encounter for screening for malignant neoplasm of breast, unspecified screening modality Z12.39 Active confirmed [id number] ALLERGIES No Known Allergies ENCOUNTERS from 1960 to 2021-07-17 Encounter Location Date Provider Diagnosis [address] [phone] [place] [address] Jun, Chantelle López Vitamin D deficiency E55.9 IMMUNIZATIONS Vaccine Route Administration Date Status Influenza 18 yrs & older Flublok IM Intramuscular Sep 08, 2019 Administered TDAP 0.5mL (Boostrix) IM Intramuscular April 09, 2017 Administe red Pneumococcal 0.5mL Prevnar 13 IM Intramuscular February 02, 2018 A dministered Influenza 6mo & up Fluzone IM Intramuscular [...] Notes Level of Education: Finished High School Jainism: Question Answer Notes Jainism 13 Yazidi Domestic Violence: Question Answer Notes Status: denies [...] last smoked? 1-5 years REASON FOR REFERRAL No Information VITAL SIGNS No information MEDICATIONS Medication SIG (Take, Route, Frequency, Duration) [...] tablet Orally Once a day Active Drisdol 74120 UNIT 1 capsule Orally weekly for 90 day(s) Active Plavix 75 MG 1 tablet Orally Once a day Active PROCEDURES No Information RESULTS No Results REASON FOR VISIT vitamin D MEDICAL (GENERAL) HISTORY Type Description Date Medical [...] Right hip replacement 10/31/15 Surgical History colonscopy [facility] 05/2021 Hospitalization History surgeries Hospitalization History TIA 01/19/15- 5 Goals Section No Information Health Concerns No Information MEDICAL EQUIPMENT No Information MENTAL STATUS No Information FUNCTIONAL STATUS No Information ASSESSMENTS Encounter Date Diagnosis Assessment Notes Treatment Notes Treatm ent Clinical Notes Jun, Vitamin D deficiency (ICD-10 - E55.9) PLAN OF TREATMENT Medication Medication Name Sig Start Date Stop Date Ventolin HFA 108 (90 Base) MCG/ACT 1 puff as needed In halation every 4 hrs for 30 Days Drisdol 24455 UNIT 1 capsule Orally weekly for 90 day(s) Aspirin Low Dose 81 MG 1 tablet Orally Once a day metFORMIN HCl 500 MG 1 tablet with a meal Orally bid hydroCHLOROthiazide 25 MG 1 tablet Orally Once a day Atorvastatin Calcium 80 MG 1 tablet Orally Once a day Metoprolol Succinate 25 mg 1 capsule Orally Once a day Next Appt Details Provider Name:Chantelle López, 2021-12-03 02:30:00 PM, [address] [facility], , [place], [address], Insurance Providers Payer Name Payer Address Payer Phone Insured Name Patient Relati onship to Insured Coverage Start Date Coverage End Date [facility] [address] [facility] [id number] FELIPE LESTER [id number]
--- OUTSIDE RECORDS SUMMARY | 2021-09-23 14:19 | CCD ---
Author Author [facility] Organization [facility] Address Unknown Phone Unavailable Care Team Providers Care Grape Cutter Name Role Phone Chantelle López Unavailable PROBLEMS Type Condition ICD9-CM Code LBN39-CD Code Onset Dates Condition S tatus W/U Status Risk SNOMED Code Notes Problem ICAO (internal carotid artery occlusion) I65.29 Active confirmed 120728688723912 Problem Hyperlipidemia E78.5 Active confirmed 86041 004 Problem History of CVA (cerebrovascular accident) Z86.73 Active confirmed 979052381 Problem Status post right hip replacement Z96.641 Active confirmed 250294796 Problem Hypertension I10 Active confirmed 0106806 3 Problem Restrictive lung disease J98.4 Active confirmed 15133604 Problem Endometrial hyperplasia, simple N85.01 Active confi rmed 722662444 Problem Vitamin D deficiency E55.9 Active confirmed 29071329 Problem Colon cancer screening Z12.11 Active confirmed 913331838 Problem Chronic obstructive pulmonary disease, unspecified COPD ty pe J44.9 Active confirmed 54548517 Problem Cervical cancer screening Z12.4 Active confirmed 033738671 Problem Seborrheic keratosis L82.1 Active confirmed 056609100 Problem Former smoker Z87.891 Active confirmed 80356 06 Problem Thyroid nodule E04.1 Active confirmed 85757 5005 Problem History of total right hip arthroplasty Z96.641 Active confirmed 907483507145680 Problem Encounter for screening for malignant neoplasm of breast, unspecified screening modality Z12.39 Active confirmed 847861093 ALLERGIES No Known Allergies ENCOUNTERS from 1960 to 2021-08-27 Encounter Location Date Provider Diagnosis [address] [phone] [place] [address] Aug, Chantelle López Hypertension I10 IMMUNIZATIONS Vaccine Route Administration Date Status Influenza [...] Notes Level of Education: Finished High School Protestant: Question Answer Notes Protestant 13 Uatsdin Domestic Violence: Question Answer Notes Status: denies [...] Notes Start Da te End Date Status Atorvastatin Calcium 80 MG TAKE ONE TABLET BY MOUTH EVERY DAY for 90 Active Fish Oil Active ProAir RespiClick 108 (90 Base) MCG/ACT 1 puff as need ed Inhalation every 4 hrs for 30 Days Jan, Active Turmeric Curcumin 500 MG as directed Orally Active Ventolin HFA 108 (90 Base) MCG/ACT 1 puff as needed In halation every 4 hrs for 30 Days Active Aspirin Low Dose 81 MG 1 tablet Orally Once a day Active metFORMIN HCl 500 MG 1 tablet with a meal Orally bid Active hydroCHLOROthiazide 25 MG 1 tablet Orally Once a day for 90 days Active Metoprolol Succinate 25 mg 1 capsule Orally Once a day Active Plavix 75 MG 1 tablet Orally Once a day Active Atorvastatin Calcium 80 MG 1 tablet Orally Once a day Active Drisdol 53163 UNIT 1 capsule Orally weekly for 90 day(s) Active Calcium 600 MG 1 tablet with meals Orally Twice a day Active PROCEDURES No Information RESULTS No Results REASON FOR VISIT refill MEDICAL (GENERAL) HISTORY Type Description Date Medical [...] Right hip replacement 10/31/15 Surgical History colonscopy [facility] 05/2021 Hospitalization History surgeries Hospitalization History TIA 01/19/15- 5 Goals Section No Information Health Concerns No Information MEDICAL EQUIPMENT No Information MENTAL STATUS No Information FUNCTIONAL STATUS No Information ASSESSMENTS Encounter Date Diagnosis Assessment Notes Treatment Notes Treatm ent Clinical Notes Aug, Hypertension (ICD-10 - I10) PLAN OF TREATMENT Medication Medication Name Sig Start Date Stop Date Ventolin HFA 108 (90 Base) MCG/ACT 1 puff as needed In halation every 4 hrs for 30 Days Drisdol 68042 UNIT 1 capsule Orally weekly for 90 day(s) metFORMIN HCl 500 MG 1 tablet with a meal Orally bid hydroCHLOROthiazide 25 MG 1 tablet Orally Once a day for 90 days Atorvastatin Calcium 80 MG 1 tablet Orally Once a day Aspirin Low Dose 81 MG 1 tablet Orally Once a day Metoprolol Succinate 25 mg 1 capsule Orally Once a day Next Appt Details Provider Name:Chantelle López, 12-03 02:30:00 PM, [address] [facility], , [place], [address], Insurance Providers Payer Name Payer Address Payer Phone Insured Name Patient Relati onship to Insured Coverage Start Date Coverage End Date [facility] [address] [facility] [id number] FELIPE LESTER [id number]
--- OUTSIDE RECORDS SUMMARY | 2021-09-23 14:20 | CCD ---
Author Author [facility] Organization [facility] Address Unknown Phone Unavailable Care Team Providers Care Lan Specialist Name Role Phone Gunter, Charu TRIAL LAWYER Unavailable Unavailable Gunter, Charu TRIAL LAWYER Unavailable Unavailable Gunter, Charu TRIAL LAWYER Unavailable Unavailable Gunter, Charu TRIAL LAWYER Unavailable Unavailable Gunter, Charu TRIAL LAWYER Unavailable Unavailable Gunter, Charu TRIAL LAWYER Unavailable Unavailable Gunter, Charu TRIAL LAWYER Unavailable Unavailable Gunter, Charu TRIAL LAWYER Unavailable Unavailable Gunter, Charu TRIAL LAWYER Unavailable Unavailable Gunter, Charu TRIAL LAWYER Unavailable Unavailable Gunter, Charu TRIAL LAWYER Unavailable Unavailable Gunter, Charu TRIAL LAWYER Unavailable Unavailable Gunter, Charu TRIAL LAWYER Unavailable Unavailable Mary Carmen Fox Unavailable Unavailable Mildred Heller MD Unavailable Unavailable Mildred Heller MD Unavailable Unavailable Mildred Heller MD Unavailable Unavailable Mildred Heller MD Unavailable Unavailable Mildred Heller MD Unavailable Unavailable Mildred Heller MD Unavailable Unavailable Mildred Heller MD Unavailable Unavailable Mildred Heller MD Unavailable Unavailable Mildred Heller MD Unavailable Unavailable Mildred Heller MD Unavailable Unavailable Mildred Heller MD Unavailable Unavailable Mildred Heller MD Unavailable Unavailable Mildred Heller MD Unavailable Unavailable Mildred Heller MD Unavailable Unavailable Mildred Heller MD Unavailable Unavailable Mildred Heller MD Unavailable Unavailable Mildred Heller MD Unavailable Unavailable Mildred Heller MD Unavailable Unavailable Mildred Heller MD Unavailable Unavailable Mildred Heller MD Unavailable Unavailable Mildred Heller MD Unavailable Unavailable Mildred Heller MD Unavailable Unavailable Mildred Heller MD Unavailable Unavailable Mildred Heller MD Unavailable Unavailable Mildred Heller MD Unavailable Unavailable Mildred Heller MD Unavailable Unavailable Mildred Heller MD Unavailable Unavailable Mildred Heller MD Unavailable Unavailable Mildred Heller MD Unavailable Unavailable Mildred Heller MD Unavailable Unavailable Mildred Heller MD Unavailable Unavailable Mildred Heller MD Unavailable Unavailable Mildred Heller MD Unavailable Unavailable Mildred Heller MD Unavailable Unavailable Mildred Heller MD Unavailable Unavailable Mildred Heller MD Unavailable Unavailable Mildred Heller MD Unavailable Unavailable Mildred Heller MD Unavailable Unavailable Mildred Heller MD Unavailable Unavailable Mildred Heller MD Unavailable Unavailable Mildred Heller MD Unavailable Unavailable Mildred Heller MD Unavailable Unavailable Mildred Heller MD Unavailable Unavailable Mildred Heller MD Unavailable Unavailable Mildred Heller MD Unavailable Unavailable Mildred Heller MD Unavailable Unavailable Mildred Heller MD Unavailable Unavailable Mildred Heller MD Unavailable Unavailable Mildred Heller MD Unavailable Unavailable Mildred Heller MD Unavailable Unavailable Leon, P Jonn PA Unavailable Unavailable Leon, P Jonn PA Unavailable Unavailable Leon, P Jonn PA Unavailable Unavailable Leon, P Jonn PA Unavailable Unavailable Leon, P Jonn PA Unavailable Unavailable Leon, P Jonn PA Unavailable Unavailable Leon, P Jonn PA Unavailable Unavailable Leon, P Jonn PA Unavailable Unavailable Leon, P Jonn PA Unavailable Unavailable Leon, P Jonn PA Unavailable Unavailable Leon, P Jonn PA Unavailable Unavailable Leon, P Jonn PA Unavailable Unavailable Leon, P Jonn PA Unavailable Unavailable Leon, P Jonn PA Unavailable Unavailable Leon, P Jonn PA Unavailable Unavailable Leon, P Jonn PA Unavailable Unavailable Leon, P Jonn PA Unavailable Unavailable Leon, P Jonn PA Unavailable Unavailable Leon, P Jonn PA Unavailable Unavailable Leon, P Jonn PA Unavailable Unavailable Leon, P Jonn PA Unavailable Unavailable Leon, P Jonn PA Unavailable Unavailable Leon, P Jonn PA Unavailable Unavailable Leon, P Jonn PA Unavailable Unavailable Leon, P Jonn PA Unavailable Unavailable Leon, P Jonn PA Unavailable Unavailable Leon, P Jonn PA Unavailable Unavailable Leon, P Jonn PA Unavailable Unavailable Leon, P Jonn PA Unavailable Unavailable Leon, P Jonn PA Unavailable Unavailable Leon, P Jonn PA Unavailable Unavailable Leon, P Jonn PA Unavailable Unavailable Leon, P Jonn PA Unavailable Unavailable Leon, P Jonn PA Unavailable Unavailable Leon, P Jonn PA Unavailable Unavailable Leon, P Jonn PA Unavailable Unavailable Leon, P Jonn PA Unavailable Unavailable Leon, P Jonn PA Unavailable Unavailable Leon, P Jonn PA Unavailable Unavailable Leon, P Jonn PA Unavailable Unavailable Leon, P Jonn PA Unavailable Unavailable Leon, P Jonn PA Unavailable Unavailable LAROCK, J TERESE TRIAL LAWYER Unavailable Unavailable LAROCK, J TERESE TRIAL LAWYER Unavailable Unavailable LAROCK, J TERESE TRIAL LAWYER Unavailable Unavailable LAROCK, J TERESE TRIAL LAWYER Unavailable Unavailable LAROCK, J TERESE TRIAL LAWYER Unavailable Unavailable LAROCK, J TERESE TRIAL LAWYER Unavailable Unavailable LAROCK, J TERESE TRIAL LAWYER Unavailable Unavailable LAROCK, J TERESE TRIAL LAWYER Unavailable Unavailable LAROCK, J TERESE TRIAL LAWYER Unavailable Unavailable LAROCK, J TERESE TRIAL LAWYER Unavailable Unavailable LAROCK, J TERESE TRIAL LAWYER Unavailable Unavailable LAROCK, J TERESE TRIAL LAWYER Unavailable Unavailable LAROCK, J TERESE TRIAL LAWYER Unavailable Unavailable LAROCK, J TERESE TRIAL LAWYER Unavailable Unavailable LAROCK, J TERESE TRIAL LAWYER Unavailable Unavailable LAROCK, J TERESE TRIAL LAWYER Unavailable Unavailable LAROCK, J TERESE TRIAL LAWYER Unavailable Unavailable LAROCK, J TERESE TRIAL LAWYER Unavailable Unavailable LAROCK, J TERESE TRIAL LAWYER Unavailable Unavailable LAROCK, J TERESE TRIAL LAWYER Unavailable Unavailable LAROCK, J TERESE TRIAL LAWYER Unavailable Unavailable LAROCK, J TERESE TRIAL LAWYER Unavailable Unavailable Maryjane Saenz MD Unavailable Unavailable Dany, A Tomás MD Unavailable Unavailable Dany, A Tomás MD Unavailable Unavailable Dayn, A Tomás MD Unavailable Unavailable Dany, A Tomás MD Unavailable Unavailable Dany, A Tomás MD Unavailable Unavailable Dany, A Tomás MD Unavailable Unavailable Dany, A Tomás MD Unavailable Unavailable Dany, A Tomás MD Unavailable Unavailable Dany, A Tomás MD Unavailable Unavailable Dany, A Tomás MD Unavailable Unavailable Dany, A Tomás MD Unavailable Unavailable Dany, A Tomás MD Unavailable Unavailable Dany, A Tomás MD Unavailable Unavailable Dany, A Tomás MD Unavailable Unavailable Dany, A Tomás MD Unavailable Unavailable Dany, A Tomás MD Unavailable Unavailable Dany, A Tomás MD Unavailable Unavailable Dany, A Tomás MD Unavailable Unavailable Dany, A Tomás MD Unavailable Unavailable Dany, A Tomás MD Unavailable Unavailable Dany, A Tomás MD Unavailable Unavailable Dany, A Tomás MD Unavailable Unavailable Dany, A Tomás MD Unavailable Unavailable Dany, A Tomás MD Unavailable Unavailable Dany, A Tomás MD Unavailable Unavailable Dany, A Tomás MD Unavailable Unavailable Dany, A Tomás MD Unavailable Unavailable Dany, A Tomás MD Unavailable Unavailable Dany, A Tomás MD Unavailable Unavailable Dany, A Tomás MD Unavailable Unavailable Dany, A Tomás MD Unavailable Unavailable Dany, A Tomás MD Unavailable Unavailable Dany, A Tomás MD Unavailable Unavailable Dany, A Tomás MD Unavailable Unavailable Dany, A Tomás MD Unavailable Unavailable Dany, A Tomás MD Unavailable Unavailable Dany, A Tomás MD Unavailable Unavailable Dany, A Tomás MD Unavailable Unavailable Dany, A Tomás MD Unavailable Unavailable Dany, A Tomás MD Unavailable Unavailable Dany, A Tomás MD Unavailable Unavailable Dany, A Tomás MD Unavailable Unavailable Dany, A Tomás MD Unavailable Unavailable Dany, A Tomás MD Unavailable Unavailable Dany, A Tomás MD Unavailable Unavailable Dany, A Tomás MD Unavailable Unavailable Dany, A Tomás MD Unavailable Unavailable Dany, A Tomás MD Unavailable Unavailable Dany, A Tomás MD Unavailable Unavailable Dany, A Tomás MD Unavailable Unavailable Dany, A Tomás MD Unavailable Unavailable Dany, A Tomás MD Unavailable Unavailable Dany, A Tomás MD Unavailable Unavailable Dany, A Tomás MD Unavailable Unavailable Dany, A Tomás MD Unavailable Unavailable Dany, A Tomás MD Unavailable Unavailable Dany, A Tomás MD Unavailable Unavailable Dany, A Tomás MD Unavailable Unavailable Dany, A Tomás MD Unavailable Unavailable Dany, A Tomás MD Unavailable Unavailable Dany, A Tomás MD Unavailable Unavailable Dany, A Tomás MD Unavailable Unavailable Dany, A Tomás MD Unavailable Unavailable Dany, A Tomás MD Unavailable Unavailable Dany, A Tomás MD Unavailable Unavailable Dany, A Tomás MD Unavailable Unavailable Dany, A Tomás MD Unavailable Unavailable Dany, A Tomás MD Unavailable Unavailable Dany, A Tomás MD Unavailable Unavailable Dany, A Tomás MD Unavailable Unavailable Dany, A Tomás MD Unavailable Unavailable Dany, A Tomás MD Unavailable Unavailable Dany, A Tomás MD Unavailable Unavailable Dany, A Tomás MD Unavailable Unavailable Dany, A Tomás MD Unavailable Unavailable Dany, A Tomás MD Unavailable Unavailable Dany, A Tomás MD Unavailable Unavailable Dany, A Tomás MD Unavailable Unavailable Dany, A Tomás MD Unavailable Unavailable Dany, A Tomás MD Unavailable Unavailable Dany, A Tomás MD Unavailable Unavailable Dany, A Tomás MD Unavailable Unavailable Dany, A Tomás MD Unavailable Unavailable Dany, A Tomás MD Unavailable Unavailable Dany, A Tomás MD Unavailable Unavailable Dany, A Tomás MD Unavailable Unavailable Dany, A Tomás MD Unavailable Unavailable Dany, A Tomás MD Unavailable Unavailable Dany, A Tomás MD Unavailable Unavailable Dany, A Tomás MD Unavailable Unavailable Dany, A Tomás MD Unavailable Unavailable Dany, A Tomás MD Unavailable Unavailable Dany, A Tomás MD Unavailable Unavailable Dany, A Tomás MD Unavailable Unavailable Dany, A Tomás MD Unavailable Unavailable Dany, A Tomás MD Unavailable Unavailable Dany, A Tomás MD Unavailable Unavailable Dany, A Tomás MD Unavailable Unavailable Dany, A Tomás MD Unavailable Unavailable Dany, A Tomás MD Unavailable Unavailable Dany, A Tomás MD Unavailable Unavailable Dany, A Tomás MD Unavailable Unavailable Dany, A Tomás MD Unavailable Unavailable Dany, A Tomás MD Unavailable Unavailable Dany, A Tomás MD Unavailable Unavailable Dany, A Tomás MD Unavailable Unavailable Dany, A Tomás MD Unavailable Unavailable Dany, A Tomás MD Unavailable Unavailable Dany, A Tomás MD Unavailable Unavailable Dany, A Tomás MD Unavailable Unavailable Dany, A Tomás MD Unavailable Unavailable Dany, A Tomás MD Unavailable Unavailable Dany, A Tomás MD Unavailable Unavailable Maryjane Saenz MD Unavailable Unavailable Maryjane Saenz MD Unavailable Unavailable Maryjane Saenz MD Unavailable Unavailable Gray, Pooja Keila PA Unavailable Unavailable Gray, Pooja Keila PA Unavailable Unavailable Gray, Pooja Keila PA Unavailable Unavailable Gray, Pooja Keial PA Unavailable Unavailable Gray, Pooja Keila PA Unavailable Unavailable Gray, Pooja Keila PA Unavailable Unavailable Gray, Pooja Keila PA Unavailable Unavailable Gray, Pooja Keila PA Unavailable Unavailable Gray, Pooja Keila PA Unavailable Unavailable Gray, Pooja Keila PA Unavailable Unavailable Trickey, J Sandy PA Unavailable Unavailable Trickey, J Sandy PA Unavailable Unavailable Trickey, J Sandy PA Unavailable Unavailable Trickey, J Sandy PA Unavailable Unavailable Trickey, J Sandy PA Unavailable Unavailable Trickey, J Sandy PA Unavailable Unavailable Trickey, J Sandy PA Unavailable Unavailable Trickey, J Sandy PA Unavailable Unavailable Trickey, J Sandy PA Unavailable Unavailable Trickey, J Sandy PA Unavailable Unavailable Trickey, J Sandy PA Unavailable Unavailable Trickey, J Sandy PA Unavailable Unavailable Trickey, J Sandy PA Unavailable Unavailable Trickey, J Sandy PA Unavailable Unavailable Trickey, J Sandy PA Unavailable Unavailable Trickey, J Sandy PA Unavailable Unavailable Trickey, J Sandy PA Unavailable Unavailable Trickey, J Sandy PA Unavailable Unavailable Trickey, J Sandy PA Unavailable Unavailable Trickey, J Sandy PA Unavailable Unavailable Trickey, J Sandy PA Unavailable Unavailable Trickey, J Sandy PA Unavailable Unavailable Trickey, J Sandy PA Unavailable Unavailable Trickey, J Sandy PA Unavailable Unavailable Trickey, J Sandy PA Unavailable Unavailable Trickey, J Sandy PA Unavailable Unavailable Trickey, J Sandy PA Unavailable Unavailable Trickey, J Sandy PA Unavailable Unavailable Trickey, J Sandy PA Unavailable Unavailable Trickey, J Sandy PA Unavailable Unavailable Trickey, J Sandy PA Unavailable Unavailable Trickey, J Sandy PA Unavailable Unavailable Trickey, J Sandy PA Unavailable Unavailable Trickey, J Sandy PA Unavailable Unavailable Trickey, J Sandy PA Unavailable Unavailable Trickey, J Sandy PA Unavailable Unavailable Trickey, J Sandy PA Unavailable Unavailable Trickey, J Sandy PA Unavailable Unavailable Trickey, J Sandy PA Unavailable Unavailable Trickey, J Sandy PA Unavailable Unavailable Trickey, J Sandy PA Unavailable Unavailable Trickey, J Sandy PA Unavailable Unavailable Trickey, J Sandy PA Unavailable Unavailable Trickey, J Sandy PA Unavailable Unavailable Trickey, J Sandy PA Unavailable Unavailable Trickey, J Sandy PA Unavailable Unavailable Trickey, J Sandy PA Unavailable Unavailable Trickey, J Sandy PA Unavailable Unavailable Trickey, J Sandy PA Unavailable Unavailable Gabris, Bill Ledesma MD, FAC Unavailable Unavailable Gabris, Bill Ledesma MD, FAC Unavailable Unavailable Gabris, Bill Ledesma MD, [facility] Unavailable Unavailable Gabris, Bill Ledesma MD, [facility] Unavailable Unavailable Gabris, Bill Ledesma MD, [facility] Unavailable Unavailable Gabris, Bill Ledesma MD, [facility] Unavailable Unavailable Gabris, Bill Ledesma MD, [facility] Unavailable Unavailable Gabris, Bill Ledesma MD, [facility] Unavailable Unavailable Gabris, Bill Ledesma MD, [facility] Unavailable Unavailable Gabris, Bill Ledesma MD, [facility] Unavailable Unavailable Gabris, Bill Ledesma MD, [facility] Unavailable Unavailable Gabris, Bill Ledesma MD, [facility] Unavailable Unavailable Gabris, Bill Ledesma MD, [facility] Unavailable Unavailable Gabris, Bill Ledesma MD, [facility] Unavailable Unavailable Gabris, Bill Ledesma MD, [facility] Unavailable Unavailable Gabris, Bill Ledesma MD, [facility] Unavailable Unavailable Gabris, Bill Ledesma MD, [facility] Unavailable Unavailable Gabris, Bill Ledesma MD, [facility] Unavailable Unavailable Gabris, Bill Ledesma MD, [facility] Unavailable Unavailable Gabris, Bill Ledesma MD, [facility] Unavailable Unavailable Gabris, Bill Ledesma MD, [facility] Unavailable Unavailable Gabris, Bill Ledesma MD, [facility] Unavailable Unavailable Gabris, Bill Ledesma MD, [facility] Unavailable Unavailable Gabris, Bill Ledesma MD, [facility] Unavailable Unavailable Gabris, Bill Ledesma MD, [facility] Unavailable Unavailable Gabris, Bill Ledesma MD, [facility] Unavailable Unavailable Gabris, Bill Ledesma MD, [facility] Unavailable Unavailable Gabris, Bill Ledesma MD, [facility] Unavailable Unavailable Gabris, Bill Ledesma MD, [facility] Unavailable Unavailable Gabris, Bill Ledesma MD, [facility] Unavailable Unavailable Gabris, Bill Ledesma MD, [facility] Unavailable Unavailable Gabris, Bill Ledesma MD, [facility] Unavailable Unavailable Gabris, Bill Ledesma MD, [facility] Unavailable Unavailable Gabris, Bill Ledesma MD, [facility] Unavailable Unavailable Gabris, Bill Ledesma MD, [facility] Unavailable Unavailable Gabris, Bill Ledesma MD, [facility] Unavailable Unavailable Gabris, Bill Ledesma MD, [facility] Unavailable Unavailable Gabris, Bill Ledesma MD, [facility] Unavailable Unavailable Gabris, Bill Ledesma MD, [facility] Unavailable Unavailable Gabris, Bill Ledesma MD, [facility] Unavailable Unavailable Gabris, Bill Ledesma MD, [facility] Unavailable Unavailable Gabris, Bill Ledesma MD, [facility] Unavailable Unavailable Gabris, Bill Ledesma MD, [facility] Unavailable Unavailable Gabris, Bill Ledesma MD, [facility] Unavailable Unavailable Gabris, Bill Ledesma MD, [facility] Unavailable Unavailable Gabris, Bill Ledesma MD, [facility] Unavailable Unavailable Gabris, Bill Ledesma MD, [facility] Unavailable Unavailable Gabris, Bill Ledesma MD, [facility] Unavailable Unavailable Gabris, Bill Ledesma MD, [facility] Unavailable Unavailable Gabris, Bill Ledesma MD, [facility] Unavailable Unavailable Gabris, Bill Ledesma MD, [facility] Unavailable Unavailable Gabris, Bill Ledesma MD, [facility] Unavailable Unavailable Gabris, Bill Ledesma MD, [facility] Unavailable Unavailable Gabris, Bill Ledesma MD, [facility] Unavailable Unavailable Gabris, Bill Ledesma MD, [facility] Unavailable Unavailable Gabris, Bill Ledesma MD, [facility] Unavailable Unavailable Gabris, Bill Ledesma MD, [facility] Unavailable Unavailable Gabris, Bill Ledesma MD, [facility] Unavailable Unavailable Gabris, Bill Ledesma MD, [facility] Unavailable Unavailable Gabris, Bill Ledemsa MD, [facility] Unavailable Unavailable Gabris, Bill Ledesma MD, [facility] Unavailable Unavailable Gabris, Bill Ledesma MD, [facility] Unavailable Unavailable Gabris, Bill Ledesma MD, [facility] Unavailable Unavailable Gabris, Bill Ledesma MD, [facility] Unavailable Unavailable Gabris, Bill Ledesma MD, [facility] Unavailable Unavailable Gabris, Bill Ledesma MD, [facility] Unavailable Unavailable Gabris, Bill Ledesma MD, [facility] Unavailable Unavailable Gabris, Bill Ledesma MD, [facility] Unavailable Unavailable Gabris, Bill Ledesma MD, [facility] Unavailable Unavailable Gabris, Bill Ledesma MD, [facility] Unavailable Unavailable Gabris, Bill Ledesma MD, [facility] Unavailable Unavailable EDD, SHERRIE PA Unavailable Unavailable EDD, SHERRIE PA Unavailable Unavailable EDD, SHERRIE PA Unavailable Unavailable EDD, SHERRIE PA Unavailable Unavailable EDD, SHERRIE PA Unavailable Unavailable EDD, SHERRIE PA Unavailable Unavailable EDD, SHERRIE PA Unavailable Unavailable EDD, SHERRIE PA Unavailable Unavailable EDD, SHERRIE PA Unavailable Unavailable EDD, SHERRIE PA Unavailable Unavailable EDD, SHERRIE PA Unavailable Unavailable EDD, SHERRIE PA Unavailable Unavailable EDD, SHERRIE PA Unavailable Unavailable EDD, SHERRIE PA Unavailable Unavailable EDD, SHERRIE PA Unavailable Unavailable EDD, SHERRIE PA Unavailable Unavailable EDD, SHERRIE PA Unavailable Unavailable EDD, SHERRIE PA Unavailable Unavailable EDD, SHERRIE PA Unavailable Unavailable EDD, SHERRIE PA Unavailable Unavailable EDD, SHERRIE PA Unavailable Unavailable EDD, SHERRIE PA Unavailable Unavailable EDD, SHERRIE PA Unavailable Unavailable EDD, SHERRIE PA Unavailable Unavailable EDD, SHERRIE PA Unavailable Unavailable EDD, SHERRIE PA Unavailable Unavailable EDD, SHERRIE PA Unavailable Unavailable EDD, SHERRIE PA Unavailable Unavailable EDD, SHERRIE PA Unavailable Unavailable EDD, SHERRIE PA Unavailable Unavailable EDD, SHERRIE PA Unavailable Unavailable EDD, SHERRIE PA Unavailable Unavailable EDD, SHERRIE PA Unavailable Unavailable EDD, SEHRRIE PA Unavailable Unavailable EDD, SHERRIE PA Unavailable Unavailable EDD, SHERRIE PA Unavailable Unavailable Re-disclosure Warning The records that you are about to access may contain information from federally-assisted alcohol or drug abuse programs. If such information is present, then the following federally mandated warning applies: This information has been disclosed to you from records protected by federal confidentiality rules (42 CFR part 2). The federal rules prohibit you from making any further disclosure of this information unless further disclosure is expressly permitted by the written consent of the person to whom it pertains or as otherwise permitted by 42 CFR part 2. A general authorization for the release of medical or other information is NOT sufficient for this purpose. The Federal rules restrict any use of the information to criminally investigate or prosecute any alcohol or drug abuse patient.The records that you are about to access may contain highly sensitive health information, the redisclosure of which is protected by Article 27-F of the [facility] Public Health law. If you continue you may have access to information: Regarding HIV / AIDS; Provided by facilities licensed or operated by the [facility] Office of Mental Health; or Provided by the [facility] Office for People With Developmental Disabilities. If such information is present, then the following [facility] mandated warning applies: This information has been disclosed to you from confidential records which are protected by state law. State law prohibits you from making any further disclosure of this information without the specific written consent of the person to whom it pertains, or as otherwise permitted by law. Any unauthorized further disclosure in violation of state law may result in a fine or mcc sentence or both. A general authorization for the release of medical or other information is NOT sufficient authorization for further disc losure. Allergies and Adverse Reactions Type Description Substance Reaction Status Data Source(s ) Propensity to adverse reactions NO KNOWN ALLERGIES NO KNOWN ALLERGIES [facility] Family History Family Member Name Family Member Gender Family Member Status Date o f Status Description Data Source(s) Unknown Male Problem MEDENT ([facility]) Unknown Unknown Problem MED[facility] ([facility]) Unknown Unknown Problem MEDENT ([facility], ) Encounters Encounter Providers Location Date Indications Data Source(s ) Outpatient Attender: Tomás Saenz MD 12/24/2021 12:00:00 [facility] Attender: TERESE MCGEE NPAttender: Mary Carmen NAM 09/23/2021 11:20:55 AM EDT - 09/23/2021 01:42:59 PM EDT [facility] ( [facility]) Unknown [address] [facility] [id number] 08/27/2021 12:00:00 AM EDT eCW1 ([facility]) Unknown [address] [facility] [id number] 07/16/2021 12:00:00 AM EDT eCW1 ([facility]) Outpatient [address] [facility] [id number] 07/02/2021 12:00:00 AM EDT eCW1 ([facility]) Outpatient Attender: Sandy NAM Main office - [facility] 05/17/2021 10:30:00 AM EDT MEDENT ([facility]) Outpatient Attender: Obed Heller MD Main Office 05/15/2021 10:30:00 AM EDT MEDENT ([facility]) Outpatient Attender: Baltazar Presley MD, FACCReferre r: Baltazar Presley MD, [facility] [email or web address] 05/10/2021 09:30:08 AM EDT - 05/10/2021 10:59:21 AM EDT [facility] Outpatient Attender: Baltazar Presley MD, FACCReferre r: Baltazar Presley MD, [facility] [email or web address] 05/10/2021 09:29:48 AM EDT - 05/10/2021 10:42:50 AM EDT [facility] Outpatient Attender: Charu Gunter NP Erin Ulloa Sandra ortega 05/04/2021 09:35:00 AM EDT [facility] ([facility] Out[place] [address] [facility] [place] [address] 04/12/2021 12:00:00 AM EDT eCW1 ([facility]) Office Visit Attender: Sandy NAM Main office - [facility] 02/12/2021 01:30:00 PM EDT MEDENT ([facility]) Unknown [address] [facility] [place] [id number] 01/26/2021 12:00:00 AM EST eCW1 ([facility]) Outpatient [address] [facility] [address] 01/25/2021 12:00:00 AM EST eCW1 ([facility] Outpatient Referrer: Tomás Saenz MD 12/22/2020 12 :00:00 AM EST Presence of right artificial hip joint [facility] Presence of right artificial hip joint Outpatient Attender: Tomás Saenz MD [id number] 12/22/2020 12 :00:00 AM EST Presence of right artificial hip joint [facility] Presence of right artificial hip joint Outpatient Attender: Jonn NAM 12/14/2020 12:00:00 AM EST [facility] Unknown [address] [facility] [address] 11/30/2020 12:00:00 AM EST eCW1 ([facility]) Unknown [address] [facility] [address] 10/16/2020 12:00:00 AM EST eCW1 ([facility] [place] [address] [facility] [address] 10/16/2020 12:00:00 AM EST eCW1 ([facility]) Outpatient Attender: SHERRIE Ulloa Prima ry 10/05/2020 01:00:00 PM EST MEDENT ([facility]) [place] [address] [facility] [address] 09/28/2020 12:00:00 AM EST eCW1 ([facility]) Outpatient Attender: Keila Ulloa Prim oscar 09/27/2020 07:00:00 AM EST MEDENT ([facility]) Outpatient Attender: SHERRIE Ulloa Prima ry 09/18/2020 08:05:00 AM EDT MEDENT ([facility]) Outpatient Attender: Sandy NAM Main office [facility] 08/15/2020 02:00:00 PM EDT MEDENT ([facility], ) Immunizations Vaccine Date Status Description Data Source(s) COVID-19 VACC, MRNA(PFIZER)/PF 09/17/2021 12:00:00 AM EDT completed [facility] COVID-19 VACCINE Pfizer 09/17/2021 12:00:00 AM EDT completed [facility] Vaccine Series Complete: YESThis Data wa s Submitted to [facility]. COVID-19 VACCINE Pfizer 02/09/2021 12:00:00 AM EDT completed [facility] Vaccine Series Complete: YESThis Data wa s Submitted to [facility]. COVID-19 VACCINE Pfizer 01/19/2021 12:00:00 AM EST completed [facility] Vaccine Series Complete: NOThis Data was Submitted to [facility]. INFLUENZA VIRUS VACCINE QUADRIVAL [id number](6 MOS AND UP)/PF 08/05/2020 12:00:00 AM EDT completed [facility] Medications Medication Brand Name Start Date Product Form Dose Route Admi nistrative Instructions Pharmacy Instructions Status Indications Reaction Description Data Source(s) 800 mg 09/07/2021 12:00:00 AM EDT tablet 20 TAKE 1 TABLET BY MOUTH EVERY 6 TO 8 HOURS TAKE 1 TABLET BY MOUTH EVERY 6 TO 8 HOURS SOLD: 09/07/2021 [facility] Clindamycin 300 MG Oral Capsule CLINDAMYCIN HCL 09/07/2021 12:00 :00 AM EDT capsule 28 TAKE 1 CAPSULE BY MOUTH EVERY 6 HOURS TAKE 1 CAPSULE BY MOUTH EVERY 6 HOURS SOLD: 09/07/2021 [facility] 25 mg 08/28/2021 12:00:00 AM EDT tablet 52 TAKE ONE TABLET BY MOUTH EVERY DAY TAKE ONE TABLET BY MOUTH EVERY DAY SOLD: 09/01/2021 [facility] 25 mg 08/27/2021 12:00:00 AM EDT tablet extended release 24 hr 52 TAKE ONE TABLET BY MOUTH ONCE A DAY TAKE ONE TABLET BY MOUTH ONCE A DAY SOLD: 09/01/2021 [facility] 80 mg 08/09/2021 12:00:00 AM EDT tablet 69 TAKE ONE TABLET BY MOUTH ONCE A DAY TAKE ONE TABLET BY MOUTH ONCE A DAY SOLD: 08/11/2021 [facility] 500 mg 07/20/2021 12:00:00 AM EDT tablet 172 TAKE ONE TABLET BY MOUTH TWICE A DAY WITH MEALS TAKE ONE TABLET BY MOUTH TWICE A DAY WITH MEALS SOLD: 07/23/2021 [facility] 1,250 mcg (50,000 unit) 07/17/2021 12:00:00 AM EDT capsule 13 TAKE 1 CAPSULE BY MOUTH ONCE WEEKLY TAKE 1 CAPSULE BY MOUTH ONCE WEEKLY SOLD: 07/18/2021 [facility] 1.479-0.188- 0.225 gram 05/15/2021 12:00:00 AM EDT tablet 24 TAKE DIRECTED TAKE DIRECTED SOLD: 05/29/2021 [facility] Sutab Sutab 05/15/2021 12:00:00 AM EDT active MEDENT ([facility]) 75 mg 05/10/2021 12:00:00 AM EDT tablet 90 TAKE ONE TABLET BY MOUTH EVERY DAY TAKE ONE TABLET BY MOUTH EVERY DAY SOLD: 05/13/2021 [facility] 75 mg 05/10/2021 12:00:00 AM EDT tablet 69 TAKE ONE TABLET BY MOUTH EVERY DAY TAKE ONE TABLET BY MOUTH EVERY DAY SOLD: 08/11/2021 [facility] 80 mg 05/09/2021 12:00:00 AM EDT tablet 90 TAKE ONE TABLET BY MOUTH EVERY DAY TAKE ONE TABLET BY MOUTH EVERY DAY SOLD: 05/13/2021 [facility] 300 mg 05/04/2021 12:00:00 AM EDT capsule 20 TAKE ONE CAPSULE BY MOUTH TWICE A DAY FOR 10 DAYS TAKE ONE CAPSULE BY MOUTH TWICE A DAY FOR 10 DAYS SOLD : 05/04/2021 [facility] cefdinir 300 MG Oral Capsule Cefdinir 05/04/2021 12:00:00 AM EDT ORAL active MEDENT ([facility]) 500 mg 04/12/2021 12:00:00 AM EDT tablet 180 TAKE ONE TABLET BY MOUTH TWICE A DAY WITH FOOD TAKE ONE TABLET BY MOUTH TWICE A DAY WITH FOOD SOLD: [facility] 1,250 mcg (50,000 unit) 03/27/2021 12:00:00 AM EDT capsule 12 TAKE 1 CAPSULE BY MOUTH ONCE WEEKLY TAKE 1 CAPSULE BY MOUTH ONCE WEEKLY SOLD: 03/28/2021 [facility] 90 mcg/actuation 01/27/2021 12:00:00 AM EST HFA aerosol inha ler 8 INHALE ONE PUFF BY MOUTH EVERY 4 HOURS NEEDED INHALE ONE PUFF BY MOUTH EVERY 4 HOURS A S NEEDED SOLD: 01/28/2021 [facility] 90 mcg/actuation 01/27/2021 12:00:00 AM EST HFA aerosol inha ler 8 INHALE ONE PUFF BY MOUTH EVERY 4 HOURS NEEDED INHALE ONE PUFF BY MOUTH EVERY 4 HOURS A S NEEDED SOLD: 03/19/2021 [facility] 200 ACTUAT Albuterol 0.09 MG/ACTUAT Dry Powder Inhaler [ProAir] ProAir RespiClick 108 (90 Base) MCG/ACT ProAir RespiClick 108 (90 Base) MCG/ACT 01/26/2021 12:00:00 AM EST 1.0 {puff_as_needed} active ProAir RespiClick 108 (90 Base) MCG/ACT eCW1 ([facility]) 200 ACTUAT Albuterol 0.09 MG/ACTUAT Dry Powder Inhaler [ProAir] ProAir RespiClick 108 (90 Base) MCG/ACT ProAir RespiClick 108 (90 Base) MCG/ACT 01/26/2021 12:00:00 AM EST 1.0 {puff_as_needed} active ProAir RespiClick 108 (90 Base) MCG/ACT eCW1 ([facility]) 200 ACTUAT Albuterol 0.09 MG/ACTUAT Dry Powder Inhaler [ProAir] ProAir RespiClick 108 (90 Base) MCG/ACT ProAir RespiClick 108 (90 Base) MCG/ACT 01/26/2021 12:00:00 AM EST 1.0 {puff_as_needed} active ProAir RespiClick 108 (90 Base) MCG/ACT eCW1 ([facility]) 200 ACTUAT Albuterol 0.09 MG/ACTUAT Dry Powder Inhaler [ProAir] ProAir RespiClick 108 (90 Base) MCG/ACT ProAir RespiClick 108 (90 Base) MCG/ACT 01/26/2021 12:00:00 AM EST 1.0 {puff_as_needed} active ProAir RespiClick 108 (90 Base) MCG/ACT eCW1 ([facility]) 200 ACTUAT Albuterol 0.09 MG/ACTUAT Dry Powder Inhaler [ProAir] ProAir RespiClick 108 (90 Base) MCG/ACT ProAir RespiClick 108 (90 Base) MCG/ACT 01/26/2021 12:00:00 AM EST 1.0 {puff_as_needed} active ProAir RespiClick 108 (90 Base) MCG/ACT eCW1 ([facility]) 200 ACTUAT Albuterol 0.09 MG/ACTUAT Dry Powder Inhaler [ProAir] ProAir RespiClick 108 (90 Base) MCG/ACT ProAir RespiClick 108 (90 Base) MCG/ACT 01/26/2021 12:00:00 AM EST 1.0 {puff_as_needed} active ProAir RespiClick 108 (90 Base) MCG/ACT eCW1 ([facility]) 80 mg 12/28/2020 12:00:00 AM EST tablet 90 TAKE ONE TABLET BY MOUTH EVERY DAY TAKE ONE TABLET BY MOUTH EVERY DAY SOLD: 01/01/2021 [facility] Metformin hydrochloride 500 MG Oral Tablet METFORMIN HCL 10/17/2020 12:00:00 AM EST tablet 180 TAKE ONE TABLET BY MOUTH TWI CE A DAY WITH A MEAL TAKE ONE TABLET BY MOUTH TWICE A DAY WITH A MEAL SOLD: 01/01/2021 [facility] 25 mg 10/17/2020 12:00:00 AM EST tablet extended release 24 hr 77 TAKE ONE TABLET BY MOUTH EVERY DAY TAKE ONE TABLET BY MOUTH EVERY DAY SOLD: 10/17/2020 [facility] 25 mg 10/17/2020 12:00:00 AM EST tablet extended release 24 hr 90 TAKE ONE TABLET BY MOUTH EVERY DAY TAKE ONE TABLET BY MOUTH EVERY DAY SOLD: 01/01/2021 [facility] 25 mg 10/17/2020 12:00:00 AM EST tablet 90 TAKE ONE TABLET BY MOUTH EVERY DAY TAKE ONE TABLET BY MOUTH EVERY DAY SOLD: 01/01/2021 [facility] 500 mg 10/17/2020 12:00:00 AM EST tablet 154 TAKE ONE TABLET BY MOUTH TWICE A DAY WITH A MEAL TAKE ONE TABLET BY MOUTH TWICE A DAY WITH A MEAL SOLD: 10/17/2020 [facility] 25 mg 10/17/2020 12:00:00 AM EST tablet 77 TAKE ONE TABLET BY MOUTH EVERY DAY TAKE ONE TABLET BY MOUTH EVERY DAY SOLD: 10/17/2020 [facility] 875-125 mg 10/05/2020 12:00:00 AM EST tablet 14 TAKE ONE TABLET BY MOUTH TWICE A DAY FOR 7 DAYS TAKE ONE TABLET BY MOUTH TWICE A DAY FOR 7 DAYS SOLD: 10/05/2020 [facility] Amoxicillin 875 MG / Clavulanate 125 MG Oral Tablet Am oxicillin/Clavulanate Potassium 10/05/2020 12:00:00 AM EST ORAL active MEDENT ([facility]) atorvastatin 80 MG Oral Tablet ATORVASTATIN CALCIUM 09/29/2020 1 2:00:00 AM EST tablet 90 TAKE ONE TABLET BY MOUTH EVERY D AY TAKE ONE TABLET BY MOUTH EVERY DAY SOLD: 10/04/2020 [facility] 75 mg 09/28/2020 12:00:00 AM EST tablet 90 TAKE ONE TABLET BY MOUTH EVERY DAY TAKE ONE TABLET BY MOUTH EVERY DAY SOLD: 10/04/2020 [facility] 1,250 mcg (50,000 unit) 09/28/2020 12:00:00 AM EST capsule 12 TAKE 1 CAPSULE BY MOUTH WEEKLY TAKE 1 CAPSULE BY MOUTH WEEKLY SOLD: 10/04/2020 [facility] 1,250 mcg (50,000 unit) 09/28/2020 12:00:00 AM EST capsule 12 TAKE 1 CAPSULE BY MOUTH WEEKLY TAKE 1 CAPSULE BY MOUTH WEEKLY SOLD: 01/01/2021 [facility] 75 mg 09/28/2020 12:00:00 AM EST tablet 90 TAKE ONE TABLET BY MOUTH EVERY DAY TAKE ONE TABLET BY MOUTH EVERY DAY SOLD: 01/01/2021 [facility] 200 ACTUAT Albuterol 0.09 MG/ACTUAT Metered Dose Inhaler [Pr oAir] Proair HFA 09/27/2020 12:00:00 AM EST ORAL active MEDENT ([facility], [facility]) Albuterol 0.83 MG/ML Inhalant Solution Albuterol Sulfate 1 11/27/2019 12:00:00 AM EST active MEDENT ([facility]) benzonatate 100 MG Oral Capsule Benzonatate 09/27/2020 12:00:00 AM EST ORAL completed MEDENT ([facility], [facility]) benzonatate 100 MG Oral Capsule BENZONATATE 09/27/2020 12:00:00 AM EST capsule 30 TAKE 1 OR 2 CAPSULES BY MOUTH EVERY 8 HO URS NEEDED FOR COUGH TAKE 1 OR 2 CAPSULES BY MOUTH EVERY 8 HOURS NEEDED FOR COUGH SOLD: 09/27/2020 [facility] 90 mcg/actuation 09/27/2020 12:00:00 AM EST HFA aerosol inha ler 8 INHALE TWO PUFFS BY MOUTH EVERY 4 TO 6 HOURS NEEDED INHALE TWO PUFFS BY MOUTH EVERY 4 TO 6 HOURS NEEDED SOLD: 09/27/2020 [facility] 2.5 mg /3 mL (0.083 %) 09/27/2020 12:00:00 AM EST solu tion for nebulization 75 USE 1 VIAL VIA NEBULIZER EVERY 6 HOURS A S NEEDED USE 1 VIAL VIA NEBULIZER EVERY 6 HOURS NEEDED SOLD: 09/27/2020 [facility] 4 mg 09/18/2020 12:00:00 AM EDT tablet,disintegrating 1 0 DISSOLVE ONE TABLET ON TONGUE EVERY 8 HOURS NEEDED FOR NAUSEA DISSOLVE ONE TABLET ON TONGUE EVERY 8 HOURS NEEDED FOR NAUSEA SOLD: 09/18/2020 [facility] Meclizine Hydrochloride 25 MG Oral Tablet MECLIZINE HCL 09/18/2020 12:00:00 AM EDT tablet 20 TAKE 1 TO 2 TABL ET BY MOUTH THREE TIMES A DAY NEEDED FOR DIZZINESS TAKE 1 TO 2 TABLET BY MOUTH THREE TIMES A DAY NEEDE D FOR DIZZINESS SOLD: 09/18/2020 [facility] 50 mcg/actuation 09/18/2020 12:00:00 AM EDT spray,suspension 16 2 SPRAYS IN EACH NOSTRIL ONCE DAILY 2 SPRAYS IN EACH NOSTRIL ONCE DAILY SOLD: 09/18/2020 [facility] Fluticasone Propionate Fluticasone Propionate 09/18/2020 12:00:00 AM E DT active MEDENT ([facility], [facility]) Ondansetron 4 MG Disintegrating Oral Tablet Ondansetron 09/18/2020 12:00:00 AM EDT ORAL completed MEDENT ([facility]) Meclizine Hydrochloride 25 MG Oral Tablet Meclizine HCL 09/18/2020 12:00:00 AM EDT ORAL completed MEDENT ([facility]) Insurance Providers Payer name Policy type / Coverage type Policy ID Covered democrat ID Covered democrat's relationship to browne Policy Browne Plan Information EMPIRE PLAN [facility] U [id number] Spouse [id number] [place] Plan P [id number] M [id number] EXCELLUS BS [id number] Spo [id number] [id number] [employer] [id number] Self [id number] [facility] [id number] MAXIMIZING INDEPENDENT LIVING CHOICES O [id number] S [id number] [employer] O [id number] S [id number] EMPIRE ([facility]) O [id number] S [id number] D [employer] Claims P [id number] M [id number] ANSI-Commercial [id number] [place] Plan P UNAVAILABLE S UNAVAI LABLE [facility] [place] Commercial [id number] Family Dependent [id number] [place] ([place], [place]) Commercial [id number] Self [id number] [facility] ([facility] 8 [id number] Family Dependent [id number] [facility] ([facility] 8 [id number] Family Dependent [id number] [employer]mercial [id number] [facility] Commercial [id number] Family Dependent [id number] ANSI-Commercial [id number] ANSI-Commercial [id number] [facility] Commercial [id number] Self [id number] [place], [place]) Commercial [id number] Self [id number] [facility] Commercial [id number] Family Dependent [id number] [facility] Commercial [id number] Family Dependent [id number] [facility] [employer] [id number] Family Dependent [id number] [place] ([place]) Commercial [id number] Self [id number] [place] ([place]) Commercial [id number] Self [id number] [facility] [id number] [id number] [facility] [place] Commercial [id number] Family Dependent [facility] P [id number] S [id number] [facility] [id number] 01 [id number] [facility] [id number] [facility] [id number] HU2 89 [id number] [facility] [id number] [id number] [facility] DIV [id number] Problems, Conditions, and Diagnoses Code Display Name Description Problem Type Effective Dates Data Source(s) 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 Occlusion and stenosis of bilateral stoner Diagnosis 05/10/2021 09:30:08 AM EDT [facility] E78.5 Hyperlipidemia, unspecified Hyperlipidemia, unspecifie d Diagnosis 05/10/2021 09:30:08 AM EDT [facility] I10 Essential (primary) hypertension Essential (primary) h ypertension Diagnosis 05/10/2021 09:30:08 AM EDT [facility] I34.0 Nonrheumatic mitral (valve) insufficienc y Nonrheumatic mitral (valve) insufficienc Diagnosis 05/10/2021 09:30:08 AM EDT [facility] Z12.39 [id number] Encounter for screen ing for malignant neoplasm of breast, unspecified screening modality Problem 01/25/2021 12:00:00 AM EST eC W1 ([facility]) Z12.4 [id number] Cervical cancer screening Problem 01/25/2021 12:00:00 AM EST eCW1 ([facility]) Z12.11 [id number] Colon cancer screening Problem 01/25/2021 12 :00:00 AM EST eCW1 ([facility]) Z96.641 [id number] History of total right hip arthroplast y Problem 09/28/2020 12:00:00 AM EST eCW1 ([facility]) Surgeries/Procedures Procedure Description Date Indications Data Source(s) COLONOSCOPY FLX DX W/WO COLLJ SPECIMENS 06/20/2021 12: 00:00 AM EDT MEDENT ([facility]) OFFICE OUTPATIENT VISIT 25 MINUTES 05/17/2021 12:00:00 AM EDT MEDENT ([facility]) OFFICE OUTPATIENT NEW 30 MINUTES 05/15/2021 12:00:00 A M EDT MEDENT ([facility]) PHYSICIAN TELEPHONE EVALUATION 5-10 MIN 02/12/2021 12: 00:00 AM EDT MEDENT ([facility]) PRESSURIZED/NONPRESSURIZED INHALATION TREATMENT 2019 12:00:00 AM EST MEDENT ([facility]) Results ID Date Data Source [id number] 07/02/2021 12:00:00 AM EDT eCW1 ([facility]) Name Value Range Interpretation Code Description Data Rhonda rce(s) Supporting Document(s) Hemoglobin A1c/Hemoglobin.total in Blood 6.0 HEMOGLOBIN A1c eCW1 ([facility]) ID Date Data Source Comprehensive Metabolic Profile (CMP) 07/02/2021 12:00:00 AM EDT eCW1 ([facility]) Name Value Range Interpretation Code Description Data Rhonda rce(s) Supporting Document(s) 83 70-100 GLUCOSE, FASTING eCW1 ([facility]) 19 7-18 BLOOD UREA NITROGEN eCW1 ([facility]) 0.73 0.55-1.30 CREATININE FOR GFR eCW1 ([facility]) > 60.0 >45 GLOMERULAR FILTRATION RATE eCW 1 ([facility]) 140 136-145 SODIUM LEVEL eCW1 ([facility]) 105 98-107 CHLORIDE LEVEL eCW1 ([facility]) 4.5 3.5-5.1 POTASSIUM SERUM eCW1 ([facility]) 16 7-37 AST/SGOT eCW1 ([facility]) 9.6 8.8-10.2 CALCIUM LEVEL eCW1 ([facility]) 31 21-32 CARBON DIOXIDE LEVEL eCW1 ([facility]) 130 45-117 ALKALINE PHOSPHATASE eCW1 ([facility]) 0.3 0.2-1.0 BILIRUBIN,TOTAL eCW1 ([facility]) 30 12-78 ALT/SGPT eCW1 ([facility]) 7.4 6.4-8.2 TOTAL PROTEIN eCW1 ([facility]) 3.7 3.2-5.2 ALBUMIN eCW1 ([facility]) 1.0 1.2-2.2 ALBUMIN/GLOBULIN RATIO eCW1 ([facility]) ID Date Data Source [id number] 05/10/2021 10:50:30 AM EDT [facility] Name Value Range Interpretation Code Description Data Rhonda rce(s) Supporting Document(s) &PDF [facility] TIVXCf2hUkCVBpUj03/NQQmsISWyv4QnXEpkUNg2DYefEEJjV6RanIdlEBOQSYKYILrYALRFN9CGICSm vci [file] AgICAgICAgICAgICAgICAgICAgICAgICAgICAgICAgICAgICAgICAgICAgICAgICAgICAgICAgICAgIC AgICAgICAgICAgICAgICAgICAgICAgICAgICAgICAgDQogICAgICAgICAgICAgICAgICAgICAgICAgIC AgICAgICAgICAgICAgICAgICAgICAgICAgICAgICAg ICAgICAgICAgICAgICAgICAgICAgICAgICAgICAgICAgICAgICAgICAgDQogICAgICAgICAgICAgICAg ICAgICAgICAgICAgICAgICAgICAgICAgICAgICAgICAgICAgICAgICAgICAgICAgICAgICAgICAgICAg ICAgICAgICAgICAgICAgICAgICAgICAgDQogICAgIC AgICAgICAgICAgICAgICAgICAgICAgICAgICAgICAgICAgICAgICAgICAgICAgICAgICAgICAgICAgIC AgICAgICAgICAgICAgICAgICAgICAgICAgICAgICAgICAgDQogICAgICAgICAgICAgICAgICAgICAgIC AgICAgICAgICAgICAgICAgICAgICAgICAgICAgICAg ICAgICAgICAgICAgICAgICAgICAgICAgICAgICAgICAgICAgICAgICAgICAgDQogICAgICAgICAgICAg ICAgICAgICAgICAgICAgICAgICAgICAgICAgICAgICAgICAgICAgICAgICAgICAgICAgICAgICAgICAg ICAgICAgICAgICAgICAgICAgICAgICAgICAgDQogIC AgICAgICAgICAgICAgICAgICAgICAgICAgICAgICAgICAgICAgICAgICAgICAgICAgICAgICAgICAgIC AgICAgICAgICAgICAgICAgICAgICAgICAgICAgICAgICAgICAgDQogICAgICAgICAgICAgICAgICAgIC AgICAgICAgICAgICAgICAgICAgICAgICAgICAgICAg ICAgICAgICAgICAgICAgICAgICAgICAgICAgICAgICAgICAgICAgICAgICAgICAgDQogICAgICAgICAg ICAgICAgICAgICAgICAgICAgICAgICAgICAgICAgICAgICAgICAgICAgICAgICAgICAgICAgICAgICAg ICAgICAgICAgICAgICAgICAgICAgICAgICAgICAgDQ ogICAgICAgICAgICAgICAgICAgICAgICAgICAgICAgICAgICAgICAgICAgICAgICAgICAgICAgICAgIC FfDVCmYAGcAIHwYHGwMCYvYNRdXILzYOWdYCNgXGNaPPBwMMLyJVXmKEm3C8wlOLEyFQGxMJ5tAMn4Nf 8+JTdHUuSePYJ9fbNvqH0PEM6ee5WqDTizTBTau6Et HMc9VU9NCXMeWOswBW0CZIzfrp5LNJStZIFimVKPh0uxGeJiDIN1KEYaTyezAH4HGNHjN7ggnlSbEDQo NZHSBMheWFFZUH5LFwBhJ7HuvR44VOLCNh1+CZpjfuMkYwhVWiFoTAFog6YrPSs0YH3ZWGAoHWhuWR5Q NSFpdH0uRAakJA0MRvRiSBCoZLGSEpWlT25jeIYzND j8C4CmJbYmCTZcHdzaGKRjTJxeFfSuIMYmTlNeERwvEI2+ID4+GYrzJU3NIGzrixIhPULkSp5EPNJwMO A2URBawXNuCuRqAERJSIpdHV4AmVYhNGJ6fP3gMYblGAKgCJFgQ5xBByKraNrjKW34eWvkgcPbvQDiXZ o+Wu0ZBT3wb8XrPIc9lqXwDYmpQFK7IZmpPEZhGQNf MGSqMFZ0AOS4KELDGvNaIIMvVARdGQmeZJQkBUJxdu9VEJYrOWCdEcqgNRRnFDKwBRWhFNptMFDcIOU6 Ppp8SUJsTHNeIB9QRjLnMAOoWAToLJKoSNDoVGEwuq5JTUTaMRBlNaVfFBVsBRVgQWQwUCzjZTFrZISq QsGwAATrFPMvGF7VHvJpAJNcVQS2BPwnCSUfVIMgsp 0MBFXwMKPtZWNaIlUmDNEqNCSpZIkgYUFcOAJ9OHxtTSEoANTsCZ7AWaOsEHOpIRNtMgwhEGVzGVChhx 7KUYOjBQDjLuS0GXXyKPVrJLHiKBxnLUPwPYX1NwD3SRSkPKHkGC6YVoPrMTZmNLy8SAWdDNEzBCOegl 4PGSUfVEBwSdW7KQYjNLGrRPXdSWdzSMKhZUDvPBM2 EUXaIAHfXJ4IYwKkQVKqRXB4HyYrANTyJZExkj6NERLdQLJcMqO7TyOsHSNfOAJcPPhoUCHoKVXpVyGb UMImSYCyUC1YNzJpZMQrGFA5IyDnJXRkMDPnwq5BIAVcQKStDMHvTmKdKKSsZLFkVJhgANIuGGB4KRe7 YMDnBLJtRR1NTyPaQMLyJOP8JbBgXYYtAAZyal6PXR KfQUAaEIwgIsTkSAOeCRVzGHcsJJGlHOL6XFq8UCGkLHCeQN1HEhUgFDYzUAQoZdVpSNObARLsxy6HBL GwBOMaNoL0SzGbCJJpUZSiXRssFHCpEVF1UnEfKBOhKCTxKY9BWoKtDGZkYVG4EVXsYXMfNVUeys7UWH XiMBRiCsBwEiRzXYLeQGKuJImpEURsUTE3CPYfMKLi RQWpFO2IAzYjZLTsHAy5BQIySTJoJFYzec8TZTCyFDGaGLR6OUWjWATiVUVqWHobKFJdBAN4TgccWIHi CWOzCQ1RBdKxMKwzEUMQJkb7FJxpB6w5OTFgWC9QK5Ica3KzQbSwZKNKNVaoRQ4hgrIvSCUkEv8ID5lQ DwiiBDL2XizxNvKvVuU7JPRoHoDoWXXwIGI8MMFfGs M6Yb3eNNFmBkR4HrFcMpMrASNjOYUdZcHyVHK6CjW7LZItTlc1BhHlRL5BMm6FDsT5CVL8xEXkSr8ZIK e6SeaMBgCbQA5GGQv= ID Date Data Source PLZ CHEST 2 VIEW 04/12/2021 12:00:00 AM EDT eCW1 (Formerly [facility], [facility]) Name Value Range Interpretation Code Description Data Rhonda rce(s) Supporting Document(s) PLZ CHEST 2 VIEW eCW1 ([facility]ly [facility], [facility]) ID Date Data Source HEPATITIS B SURFACE ANTIGEN 04/12/2021 12:00:00 AM EDT eCW1 ([facility]) Name Value Range Interpretation Code Description Data Rhonda rce(s) Supporting Document(s) NEGATIVE NEGATIVE HEPATITIS B SURFACE ANTIG EN eCW1 ([facility]) ID Date Data Source HEPATITIS A IgG 04/12/2021 12:00:00 AM EDT eCW1 (Formerly [facility], [facility]) Name Value Range Interpretation Code Description Data Rhonda rce(s) Supporting Document(s) Positive Negative HEPATITIS A IgG TOTAL eCW 1 ([facility]) ID Date Data Source HEPATITIS A ANTIBODY IGM 04/12/2021 12:00:00 AM EDT eCW1 (Formerly [facility]) Name Value Range Interpretation Code Description Data Rhonda rce(s) Supporting Document(s) NEGATIVE NEGATIVE HEPATITIS A ANTIBODY IGM eCW1 ([facility]) ID Date Data Source HEPATITIS C ANTIBODY INDEX 04/12/2021 12:00:00 AM EDT eCW1 ( [facility]) Name Value Range Interpretation Code Description Data Rhonda rce(s) Supporting Document(s) 0.0 <0.8 HEPATITIS C VIRUS LUIGI INDEX eC W1 ([facility]) ID Date Data Source HEPATITIS B SURFACE ANTIBODY 04/12/2021 12:00:00 AM EDT eCW1 ([facility]) Name Value Range Interpretation Code Description Data Rhonda rce(s) Supporting Document(s) NEGATIVE POSITIVE HEPATITIS B SURFACE ANTIB SATNAM eCW1 ([facility]) ID Date Data Source ALK PHOS FRACTIONATED 04/12/2021 12:00:00 AM EDT eCW1 ([facility]) Name Value Range Interpretation Code Description Data Rhonda rce(s) Supporting Document(s) 87 STABLE ALKPHOS eCW1 ([facility]) 47 LABILE ALKPHOS eCW1 ([facility]) 35.1 % LABILE ALKALINE PHOSPHATASE eCW1 ([facility]) ID Date Data Source VITAMIN D 25-HYDROXY 01/25/2021 12:00:00 AM EST eCW1 ([facility]) Name Value Range Interpretation Code Description Data Rhonda rce(s) Supporting Document(s) 57.2 30.0-100.0 TOTAL 25(OH) VITAMIN D eC W1 ([facility]) ID Date Data Source PTH INTACT 01/25/2021 12:00:00 AM EST eCW1 (Formerly [facility], [facility]) Name Value Range Interpretation Code Description Data Rhonda rce(s) Supporting Document(s) 47.5 18.5-88.0 PTH INTACT eCW1 (On license of [facility]) ID Date Data Source LIPID PANEL (CARDIAC RISK) 01/25/2021 12:00:00 AM EST eCW1 ( [facility]) Name Value Range Interpretation Code Description Data Rhonda rce(s) Supporting Document(s) Triglyceride [Mass/volume] in Serum or Plasma by calculation 226 <150 TRIGLYCERIDES LEVEL eCW1 ([facility]) TRIGLYCERIDES LEVEL Cholesterol [Moles/volume] in Serum or Plasma 191 <200 CHOLESTEROL LEVEL eCW1 ([facility]) CHOLESTEROL LEVEL 132 NON-HDL-C eCW1 ([facility]) NON-HDL-C Cholesterol in HDL [Moles/volume] in Serum or Plasma 59 >40 HDL CHOLESTEROL eCW1 ([facility]) HDL CHOLESTEROL Cholesterol in LDL [Mass/volume] in Serum or Plasma by calculation 87 <100 LDL CHOLESTEROL eCW1 ([facility]) LDL CHOLESTEROL 3.237 <5 CHOLESTEROL RISK RATIO eCW1 ([facility]) CHOLESTEROL RISK RATIO ID Date Data Source CPK CREATINE PHOSPHOKINASE 01/25/2021 12:00:00 AM EST eCW1 ( [facility]) Name Value Range Interpretation Code Description Data Rhonda rce(s) Supporting Document(s) 121 26-192 CPK CREATINE PHOSPHOKINASE eCW 1 ([facility]) ID Date Data Source CBC with Differential 01/25/2021 12:00:00 AM EST eCW1 ([facility]) Name Value Range Interpretation Code Description Data Rhonda rce(s) Supporting Document(s) 8.2 4.0-10.0 WHITE BLOOD COUNT eCW1 ([facility]) 4.25 4.00-5.40 RED BLOOD COUNT eCW1 ([facility]) 40.5 36.0-47.0 HEMATOCRIT eCW1 (On license of [facility]) 12.4 12.0-15.5 HEMOGLOBIN eCW1 (On license of [facility]) 29.2 27.0-33.0 MEAN CORPUSCULAR HEMOGLOB IN eCW1 ([facility]) 95.3 80.0-96.0 MEAN CORPUSCULAR VOLUME e CW1 ([facility]) 30.6 32.0-36.5 MEAN CORPUSCULAR HGB CONC eCW1 ([facility]) 29.5 24.0-44.0 LYMPH % eCW1 ([facility]) 14.8 11.5-14.5 RED CELL DISTRIBUTION WID TH eCW1 ([facility]) 55.5 36.0-66.0 NEUTROPHILS % eCW1 ([facility]) 284 150-450 PLATELET COUNT, AUTOMATED eCW1 ([facility]) 0.6 0.0-1.0 BASO % eCW1 ([facility]) 12.0 2.0-8.0 MONO % eCW1 ([facility]) 4.6 1.5-8.5 NEUTROPHILS # eCW1 ([facility]) 2.3 0.0-3.0 EOS % eCW1 ([facility]) 1.0 0.0-0.8 MONO # eCW1 ([facility]) 0.1 0.0-0.2 BASO # eCW1 ([facility]) 2.4 1.5-5.0 LYMPH # eCW1 ([facility]) 0.2 0.0-0.5 EOS # eCW1 ([facility]) ID Date Data Source [id number] 12/22/2020 12:28:[address] [facility] XR HIP- UNILAT, 2-3 VIEWS [id number] RE SULTInterpreted by:Tomás Saenz MDIndication: Status post right total hipTechnique: 3 views right hipComparison: December 14, 2019Findings: A well sized and positioned press-fit right total hip arthroplasty shows no subluxation, dislocation, periprosthetic fracture, or loosening. Left hip joint spaces well-preserved. No acute findings.Impression: Unchanged right total hip arthroplasty without radiographic complicationsThis document has been electronically signed by Tomás Saenz MD on 12/22/2020 12:28 PM Name Value Range Interpretation Code Description Data Rhonda rce(s) Supporting Document(s) ID Date Data Source [id number] 12/22/2020 12:27:[address] [facility] Name Value Range Interpretation Code Description Data Rhonda rce(s) Supporting Document(s) Progress Note [facility] IVDBRa0pCoOHIlHk50/EQKnhFNZkw8LsGDreCAw1HTwiMZCnK9VqVKK5dL2cWEJ5FBsXRoCmGxCeVWO5 [facility] [file] WFDC8Me5o3CUJRt9JVt9jx9Yfur+SHANKER OUT+XhX3BA3a3D/+2i3Nw4x8Pu2+sLB6JHB9UeMu0RTacta2DpzLF [file] AgICAgICAgICAgICAgICAgICAgICAgICAgICAgICAgICAgICAgICAgICAgICAgICAgICAgICAgICAgIC AgICAgICAgICAgICAgICAgICAgICAgICAgICAgICAg ICAgICANCiAgICAgICAgICAgICAgICAgICAgICAgICAgICAgICAgICAgICAgICAgICAgICAgICAgICAg ICAgICAgICAgICAgICAgICAgICAgICAgICAgICAgICAgICAgICAgICAgICAgICANCiAgICAgICAgICAg ICAgICAgICAgICAgICAgICAgICAgICAgICAgICAgIC AgICAgICAgICAgICAgICAgICAgICAgICAgICAgICAgICAgICAgICAgICAgICAgICAgICAgICAgICANCi AgICAgICAgICAgICAgICAgICAgICAgICAgICAgICAgICAgICAgICAgICAgICAgICAgICAgICAgICAgIC AgICAgICAgICAgICAgICAgICAgICAgICAgICAgICAg ICAgICAgICANCiAgICAgICAgICAgICAgICAgICAgICAgICAgICAgICAgICAgICAgICAgICAgICAgICAg ICAgICAgICAgICAgICAgICAgICAgICAgICAgICAgICAgICAgICAgICAgICAgICAgICANCiAgICAgICAg ICAgICAgICAgICAgICAgICAgICAgICAgICAgICAgIC AgICAgICAgICAgICAgICAgICAgICAgICAgICAgICAgICAgICAgICAgICAgICAgICAgICAgICAgICAgIC ANCiAgICAgICAgICAgICAgICAgICAgICAgICAgICAgICAgICAgICAgICAgICAgICAgICAgICAgICAgIC AgICAgICAgICAgICAgICAgICAgICAgICAgICAgICAg ICAgICAgICAgICANCiAgICAgICAgICAgICAgICAgICAgICAgICAgICAgICAgICAgICAgICAgICAgICAg ICAgICAgICAgICAgICAgICAgICAgICAgICAgICAgICAgICAgICAgICAgICAgICAgICAgICANCiAgICAg ICAgICAgICAgICAgICAgICAgICAgICAgICAgICAgIC AgICAgICAgICAgICAgICAgICAgICAgICAgICAgICAgICAgICAgICAgICAgICAgICAgICAgICAgICAgIC AgICANCiAgICAgICAgICAgICAgICAgICAgICAgICAgICAgICAgICAgICAgICAgICAgICAgICAgICAgIC AgICAgICAgICAgICAgICAgICAgICAgICAgICAgICAg ICAgICAgICAgICAgICANCjw/qLQuA0ydkFQwwoI0A1glHd3WMd9QBF8su4EfDYCoCTnhxsWtRsmVQvVu JVJgUwuQOjk5NPzsUH4HcRQvS7PxS5NvPYhrBP5CFNJjOQXdyAJnKNSbZMDuYeK4IDNeOCkaEF3JzYEp VNynSYSaYBTiRjHwOSRrXP6LSTEyE092pzLdCe8GXk 4RDxFfRB7ugr7RQmQjAMHgVgoQVxv9PXgzWC2NhIWrdWWxXMSuWNWRPtZdA1uta6JvNpGrJJTGKUvrAM 7Jj2PzhJNlLZl+Zq9UDQ4mv4ObSWxlJLKdFH0fxq8QNKiVAwGdY7AueFzcTIKnx5xsUXEcFA5axTYpSB L9JZfbuMJslpKZMH4zs4ulyuvdHIwmIOCiABIySW6i VM6tNCOvDCRvOeEyXIGDHE8DHVMyZBGjmXOmZHAiAHOBYV2UXMnyYKW9ZNMkrlBkhGErVBqrQP1DMTEp bnQgMjQgMCBSDQo+Wf8YPS9ij2MkEAyeMvRgPZ5sun3PCWaVUsUbD4O0aMRmG8A0ADmfQz3PCTNwDIVm IfUmROCUXNxgID6DVW3dwiL5GV5IwXYbOHGfTEWwmW BiQXm3P02oxPRlZWizET3AZTV+Leny+Xk3HXYYjMSMxSPZiFsEvGJRJRiHtO9LzP8MSp5DxF4JoII69vE idcwVzGHtpSM1VZX4gYFFuWVPOLT0FzBZcfN4ewxWePXZvGMWWCySsR45ghYBnMFTqVFGiLKOkEc1SVR GrE6GymzBpcTrtofHkDPHgCXISSQ4VMLjfciFyfWIp kIwfSG17bNapJV0AFb7XBmBtQW6iqo6UtNPcIw3YOMVoOq0QZJNjNGZlZGLwRYW1VVXzRaPpSRphWEQe DJOuHBR4BSYmXXQyGH6SIlHfSTBjBvV2HtSgYMMtNTVdlq5DUWFjWQKqJXRiGfSyULWjSKWcIJeoHJPr CSKpPLO1NESpXYGjCO9MTbKzRDDdMQT1YVDbRVQtDP Undd7CHEIoOOJtZocrUjSpFUPoECCzTHubDBEfDVO5FoGuLHBdAPVgDK1YYeSaKAWwTVG0XbWxXJTmYD Qjdc3QELZxEBDiMFn8YPYuGVLlYIOsVHdtNWSbAPY3QLzjDCItAXNvEM5GSaPvHTPqKTQiQyWkFNCyIG Ghpc0DMLAxEFNfHmLrBLNgCXWsOIVvWIhkAPBgLYO4 QdQrAMLiGFHzDF8UEnGtQHBmOQd5BAFnWCRiOBDfmz6GSLLrTNOmFWYvRnJeRXQwQRRhYPxiAPRrIDVf DRgtNNOgTZQxJY4ADmWzZWOdZmA6VCCkZVRnONLafu3RLMTzAYGfEGi6NAKnQYRqOKPuEXndGZCdAVUt XYVgQQWbJKHcHY3TKkBlCBChAcDfKDIcPWDwXBPcek 6KSDWzEHIoUpL1BrLyQZQtFZUoDRuxXOPfFYWdBIAdQTTuFOTyGX9PYdMjORBeGiC9BdbqRDLlICLxjx 3NOHRuQECcWWXlGDFrNEPaCTYoEJwsJNWeFBI0GidrMODaFMQjMY6BReUmMKPiZyQ2CaLaANHcIHJbue 2KhCWjrEwzqs5NZNtYSw0UwDweGFN5QIizSj2rvOBc OeVkTVSHLk3RdhAbJJAbHVVLWLxnUSQuGQzhJQXaWDSvNWYpIJm0IAE8FGRuUBVjWzFaMtFdGchvEbC7 FdT8IVO8OMM9PDYzYTL4XfBwXUTsSMG3IVQ8O8KaI5S+EW9lNJy+Vh4Oq5HmmmK9doNiWSlsWQc7NU0J CLZXQ6OMMu== ID Date Data Source [id number] 09/18/2020 09:10:00 AM EDT MEDENT ([facility]) Name Value Range Interpretation Code Description Data Rhonda rce(s) Supporting Document(s) Magnesium [Mass/volume] in Serum or Plasma 2.2 mg/dL 1.8-2.4 MEDENT ([facility]) ID Date Data Source [id number] 09/18/2020 09:10:00 AM EDT MEDENT ([facility]) Name Value Range Interpretation Code Description Data Rhonda rce(s) Supporting Document(s) Glucose, Fasting 116 mg/dL 70-100 MEDENT ([facility], [facility]) Blood Urea Nitrogen 19 mg/dL 7-18 MEDENT ([facility], [facility]) Glomerular Filtration Rate Laboratory test result MEDENT ([facility], [facility]) <content>Units are mL/min/1.73 m2</content>
<content></content>
<content>Chronic Kidney Disease Staging per NKF:</content>
<content></content>
<content>Stage I & II GFR >=60 Normal to Mildly Decreased</content>
<content>Stage III GFR 30- 59 Moderately Decreased</content>
<content>Stage IV GFR 15-29 Severely Decreased</content>
<content>Stage V GFR <15 Very Little GFR Left</content>
<content>ESRD GFR <15 on CLIENT RELATIONS SPECIALIST</content>
<content></content> Creatinine For GFR 0.66 mg/dL 0.55-1.30 MEDENT ([facility], [facility]) Potassium Serum 4.9 meq/L 3.5-5.1 MEDENT ([facility], [facility]) Sodium Level 138 meq/L 136-145 MEDENT ([facility], [facility]) Chloride Level 105 meq/L 98-107 MEDENT ([facility], [facility]) Calcium Level 9.3 mg/dL 8.8-10.2 MEDENT ([facility], [facility]) Carbon Dioxide Level 31 meq/L 21-32 [facility] ( [facility]) Anion Gap 2 meq/L 8-16 MEDENT ([facility], [facility]) ID Date Data Source [id number] 09/18/2020 09:10:00 AM EDT MEDENT ([facility], [facility]) Name Value Range Interpretation Code Description Data Rhonda rce(s) Supporting Document(s) White Blood Count 6.8 10 4.0-10.0 MEDENT ([facility]) Hemoglobin 12.5 g/dL 12.0-15.5 MEDENT ([facility]) Red Blood Count 4.35 10 4.00-5.40 MEDENT ([facility], [facility]) Hematocrit 41.7 % 36.0-47.0 MEDENT ([facility]) Mean Corpuscular Volume 95.9 fl 80.0-96.0 M EDENT ([facility], [facility]) Mean Corpuscular HGB Conc 30.0 g/dL 32.0-36.5 MEDENT ([facility], [facility]) Mean Corpuscular Hemoglobin 28.7 pg 27.0-33.0 MEDENT ([facility], [facility]) Neutrophils % 63.8 % 36.0-66.0 MEDENT ([facility], [facility]) Red Cell Distribution Width 14.9 % 11.5-14.5 MEDENT ([facility], [facility]) Platelet Count, Automated 289 10 150-450 MEDENT ([facility], [facility]) Lymph % 23.8 % 24.0-44.0 MEDENT ([facility], [facility]) Bullock % 10.5 % 0.0-5.0 MEDENT ([facility], [facility]) Eos % 1.2 % 0.0-3.0 MEDENT ([facility], [facility]) Immature Granulocyte % 0.1 % 0-3.0 MEDENT ([facility], [facility]) Baso % 0.6 % 0.0-1.0 MEDENT ([facility], [facility]) Neutrophils # 4.3 10 1.5-8.5 MEDENT ([facility], [facility]) Nucleated Red Blood Cell % 0.0 % 0-0 MED ENT ([facility], [facility]) Bullock # 0.7 10 0.0-0.8 MEDENT ([facility], [facility]) Lymph # 1.6 10 1.5-5.0 MEDENT ([facility], [facility]) Eos # 0.1 10 0.0-0.5 MEDENT ([facility], [facility]) Baso # 0.0 10 0.0-0.2 MEDENT ([facility], [facility]) Procedure Social History Code Duration Value Status Description Data Source(s ) Smoking 07/02/2021 12:00:00 AM EDT Former Smoker completed Former Smoker eCW1 ([facility]) Smoking 07/02/2021 12:00:00 AM EDT Former Smoker completed Former Smoker eCW1 ([facility]) Smoking 07/02/2021 12:00:00 AM EDT Former Smoker completed Former Smoker eCW1 ([facility]) Smoking 05/04/2021 12:00:00 AM EDT Patient is a former smoker completed Patient is a former smoker MEDENT ([facility]) Smoking 04/12/2021 12:00:00 AM EDT Former Smoker completed Former Smoker eCW1 ([facility]) Smoking 01/25/2021 12:00:00 AM EST Former Smoker completed Former Smoker eCW1 ([facility]) Smoking 01/25/2021 12:00:00 AM EST Former Smoker completed Former Smoker eCW1 ([facility]) Smoking 09/28/2020 12:00:00 AM EST Former Smoker completed Former Smoker eCW1 ([facility]) Smoking 09/28/2020 12:00:00 AM EST Former Smoker completed Former Smoker eCW1 ([facility]) Smoking 09/28/2020 12:00:00 AM EST Former Smoker completed Former Smoker eCW1 ([facility]) Smoking 09/28/2020 12:00:00 AM EST Former Smoker completed Former Smoker eCW1 ([facility]) Vital Signs ID Date Data Source UNK Name Value Range Interpretation Code Description Data Source(s) Body weight 229 [lb_av] 229 [lb_av] eCW1 ([facility]) Body height 66 [in_i] 66 [in_i] eCW1 ([facility]) Body mass index (BMI) [Ratio] 36.96 kg/m2 36.96 kg/m2 W1 ([facility]) Heart rate 87 /min 87 /min eCW1 ([facility]) Respiratory rate 18 /min 18 /min eCW1 ([facility]) Body temperature 97.6 [degF] 97.6 [degF] eCW1 ( [facility]) Systolic blood pressure 118 mm[Hg] 118 mm[Hg] e CW1 ([facility]) Diastolic blood pressure 78 mm[Hg] 78 mm[Hg] eCW1 ([facility]) Systolic blood pressure 118 mm[Hg] 118 mm[Hg] M EDENT ([facility]) Diastolic blood pressure 80 mm[Hg] 80 mm[Hg] MEDENT ([facility]) Heart rate 76 /min 76 /min MEDENT ([facility] ) Respiratory rate 16 /min 16 /min MEDENT ( [facility] ) Heart rate 74 /min 74 /min MEDENT ([facility]) Body height 67 [in_i] 67 [in_i] MEDENT ([facility]) 5'7" Body weight 232.00 [lb_av] 232.00 [lb_av] MEDEN T ([facility]) Systolic blood pressure 128 mm[Hg] 128 mm[Hg] M EDENT ([facility]) Diastolic blood pressure 84 mm[Hg] 84 mm[Hg] MEDENT ([facility]) Body mass index (BMI) [Ratio] 36.3 kg/m2 36.3 k g/m2 MEDENT ([facility]) Body weight 105.235 kg 105.235 kg [facility] Body temperature 97.2 [degF] 97.2 [degF] MEDENT ([facility]) Systolic blood pressure 145 mm[Hg] 145 mm[Hg] M EDENT ([facility], [facility]) Body mass index (BMI) [Ratio] 36.5 kg/m2 36.5 k g/m2 MEDENT ([facility], [facility]) Diastolic blood pressure 96 mm[Hg] 96 mm[Hg] MEDENT ([facility], [facility]) Heart rate 58 /min 58 /min MEDENT ([facility], [facility]) Respiratory rate 22 /min 22 /min MEDENT ( [facility]) Oxygen saturation in Arterial blood by Pulse oximetry 97 % 97 % MEDENT ([facility], [facility]) Body temperature 97.8 [degF] 97.8 [degF] MEDENT ([facility], [facility]) Body weight 233.00 [lb_av] 233.00 [lb_av] MEDEN T ([facility], [facility]) Body height 67 [in_i] 67 [in_i] MEDENT ([facility]) 5'7" Body weight 232 [lb_av] 232 [lb_av] eCW1 ([facility]) Body height 66 [in_i] 66 [in_i] eCW1 ([facility]) Body mass index (BMI) [Ratio] 37.44 kg/m2 37.44 kg/m2 eCW1 ([facility]) Heart rate 91 /min 91 /min eCW1 ([facility]) Respiratory rate 18 /min 18 /min eCW1 ([facility]) Body temperature 97.6 [degF] 97.6 [degF] eCW1 ( [facility]) Systolic blood pressure 120 mm[Hg] 120 mm[Hg] e CW1 ([facility]) Diastolic blood pressure 78 mm[Hg] 78 mm[Hg] eCW1 ([facility]) Body weight 245 [lb_av] 245 [lb_av] eCW1 ([facility]) Body height 66 [in_i] 66 [in_i] eCW1 ([facility]) Body mass index (BMI) [Ratio] 39.54 kg/m2 39.54 kg/m2 eCW1 ([facility]) Heart rate 93 /min 93 /min eCW1 ([facility]) Respiratory rate 18 /min 18 /min eCW1 ([facility]) Body temperature 98.7 [degF] 98.7 [degF] eCW1 ( [facility]) Systolic blood pressure 116 mm[Hg] 116 mm[Hg] e CW1 ([facility]) Diastolic blood pressure 78 mm[Hg] 78 mm[Hg] eCW1 ([facility]) Systolic blood pressure 127 mm[Hg] 127 mm[Hg] M EDENT ([facility] Diastolic blood pressure 82 mm[Hg] 82 mm[Hg] MEDENT ([facility]) Heart rate 90 /min 90 /min MEDENT ([facility]) Respiratory rate 16 /min 16 /min MEDENT ( [facility], [facility]) Oxygen saturation in Arterial blood by Pulse oximetry 99 % 99 % MEDENT ([facility], [facility]) Body temperature 98.7 [degF] 98.7 [degF] MEDENT ([facility], [facility]) Body weight 240.00 [lb_av] 240.00 [lb_av] MEDEN T ([facility], [facility]) Body height 67 [in_i] 67 [in_i] MEDENT ([facility]) 5'7" Body mass index (BMI) [Ratio] 37.6 kg/m2 37.6 k g/m2 [facility], [facility]) Body temperature 97.4 [degF] 97.4 [degF] eCW1 ( [facility]) Systolic blood pressure 128 mm[Hg] 128 mm[Hg] e CW1 ([facility]) Diastolic blood pressure 68 mm[Hg] 68 mm[Hg] eCW1 ([facility]) Body weight 241 [lb_av] 241 [lb_av] eCW1 ([facility]) Body height 66 [in_i] 66 [in_i] eCW1 ([facility]) Body mass index (BMI) [Ratio] 38.89 kg/m2 38.89 kg/m2 W1 ([facility]) Heart rate 90 /min 90 /min eCW1 ([facility]) Respiratory rate 18 /min 18 /min eCW1 ([facility]) Systolic blood pressure 148 mm[Hg] 148 mm[Hg] M EDENT ([facility], [facility]) Body temperature 98.6 [degF] 98.6 [degF] MEDENT ([facility], [facility]) Body weight 240.00 [lb_av] 240.00 [lb_av] MEDEN T ([facility], [facility]) Body height 67 [in_i] 67 [in_i] MEDENT ([facility]) 5'7" Body mass index (BMI) [Ratio] 37.6 kg/m2 37.6 k g/m2 [facility] ([facility], [facility]) Diastolic blood pressure 82 mm[Hg] 82 mm[Hg] MEDENT ([facility], [facility]) Heart rate 80 /min 80 /min MEDENT ([facility]) Respiratory rate 16 /min 16 /min MEDENT ( [facility]) Oxygen saturation in Arterial blood by Pulse oximetry 99 % 99 % MEDENT ([facility], [facility]) Systolic blood pressure 120 mm[Hg] 120 mm[Hg] M EDENT ([facility], [facility]) Diastolic blood pressure 84 mm[Hg] 84 mm[Hg] MEDENT ([facility], [facility]) Body temperature 98.3 [degF] 98.3 [degF] MEDENT ([facility], [facility]) Heart rate 76 /min 76 /min MEDENT ([facility], [facility]) Body height 67 [in_i] 67 [in_i] MEDENT ([facility], [facility]) 5'7" Respiratory rate 18 /min 18 /min MEDENT ( [facility], [facility]) Oxygen saturation in Arterial blood by Pulse oximetry 96 % 96 % MEDENT ([facility], [facility]) Body weight 240.00 [lb_av] 240.00 [lb_av] MEDEN T ([facility], [facility]) Body mass index (BMI) [Ratio] 37.6 kg/m2 37.6 k g/m2 MEDENT ([facility]) Systolic blood pressure 124 mm[Hg] 124 mm[Hg] M EDENT ([facility]) Diastolic blood pressure 80 mm[Hg] 80 mm[Hg] MEDENT ([facility]) Heart rate 76 /min 76 /min MEDENT ([facility]) Respiratory rate 16 /min 16 /min MEDENT ( [facility]) Patient Treatment Plan of Care Planned Activity Planned Date Details Description Data Source (s) 200 ACTUAT Albuterol 0.09 MG/ACTUAT Dry Powder Inhaler [ProAir] 01/26/2021 12:00:00 AM EST W1 ([facility]) 200 ACTUAT Albuterol 0.09 MG/ACTUAT Dry Powder Inhaler [ProAir] 01/26/2021 12:00:00 AM EST eCW1 ([facility])
--- OUTSIDE RECORDS SUMMARY | 2021-09-23 16:56 | CCD ---
Author Author [facility] Organization [facility] Address Unknown Phone Unavailable Care Team Providers Care Camp Guard Name Role Phone Gunter, Charu KINDERGARTNERS HELPER Unavailable Unavailable Gunter, Charu KINDERGARTNERS HELPER Unavailable Unavailable Gunter, Charu KINDERGARTNERS HELPER Unavailable Unavailable Gunter, Charu KINDERGARTNERS HELPER Unavailable Unavailable Gunter, Charu KINDERGARTNERS HELPER Unavailable Unavailable Gunter, Charu KINDERGARTNERS HELPER Unavailable Unavailable Gunter, Charu KINDERGARTNERS HELPER Unavailable Unavailable Gunter, Charu KINDERGARTNERS HELPER Unavailable Unavailable Gunter, Charu KINDERGARTNERS HELPER Unavailable Unavailable Gunter, Charu KINDERGARTNERS HELPER Unavailable Unavailable Gutner, Charu KINDERGARTNERS HELPER Unavailable Unavailable Gunter, Charu KINDERGARTNERS HELPER Unavailable Unavailable Gunter, Charu KINDERGARTNERS HELPER Unavailable Unavailable Mary Carmen Fox Unavailable Unavailable Mildred Heller MD Unavailable Unavailable Mildrde Heller MD Unavailable Unavailable Mildred Heller MD [...] Jonn PA Unavailable Unavailable LAROCK, J TERESE KINDERGARTNERS HELPER Unavailable Unavailable LAROCK, J TERESE KINDERGARTNERS HELPER Unavailable Unavailable LAROCK, J TERESE KINDERGARTNERS HELPER Unavailable Unavailable LAROCK, J TERESE KINDERGARTNERS HELPER Unavailable Unavailable LAROCK, J TERESE KINDERGARTNERS HELPER Unavailable Unavailable LAROCK, J TERESE KINDERGARTNERS HELPER Unavailable Unavailable LAROCK, J TERESE KINDERGARTNERS HELPER Unavailable Unavailable LAROCK, J TERESE KINDERGARTNERS HELPER Unavailable Unavailable LAROCK, J TERESE KINDERGARTNERS HELPER Unavailable Unavailable LAROCK, J TERESE KINDERGARTNERS HELPER Unavailable Unavailable LAROCK, J TERESE KINDERGARTNERS HELPER Unavailable Unavailable LAROCK, J TERESE KINDERGARTNERS HELPER Unavailable Unavailable LAROCK, J TERESE KINDERGARTNERS HELPER Unavailable Unavailable LAROCK, J TERESE KINDERGARTNERS HELPER Unavailable Unavailable LAROCK, J TERESE KINDERGARTNERS HELPER Unavailable Unavailable LAROCK, J TERESE KINDERGARTNERS HELPER Unavailable Unavailable LAROCK, J TERESE KINDERGARTNERS HELPER Unavailable Unavailable LAROCK, J TERESE KINDERGARTNERS HELPER Unavailable Unavailable LAROCK, J TERESE KINDERGARTNERS HELPER Unavailable Unavailable LAROCK, J TERESE KINDERGARTNERS HELPER Unavailable Unavailable LAROCK, J TERESE KINDERGARTNERS HELPER Unavailable Unavailable LAROCK, J TERESE KINDERGARTNERS HELPER Unavailable Unavailable Maryjane Saenz MD Unavailable Unavailable [...] A Tomás MD Unavailable Unavailable Dany, A Otmás MD Unavailable Unavailable Dany, A Tomás MD [...] FAC Unavailable Unavailable Gabris, Bill Ledesma MD, [facility] Unavailable Unavailable Gabris, Bill Ledesma MD, [facility] Unavailable Unavailable Gabris, Bill Ledesma MD, [facility] Unavailable Unavailable Gabris, Bill Ledesma MD, [facility] Unavailable Unavailable Gabris, Bill Ledesma MD, [facility] Unavailable Unavailable Gabris, Bill Ledesma MD, [facility] Unavailable Unavailable Gabris, Bill Ledesma MD, [facility] Unavailable Unavailable Gabris, Bill Ledesma MD, [facility] Unavailable Unavailable Gabris, Bill Ledesma MD, [facility] Unavailable Unavailable Gabris, Bill Ledesma MD, [facility] Unavailable Unavailable Gabris, Bill Ledesma MD, [facility] Unavailable Unavailable Gabris, Bill Ledesma MD, [facility] Unavailable Unavailable Gabris, Bill Ledesma MD, [facility] Unavailable Unavailable Gabris, Bill Ledesma MD, [facility] Unavailable Unavailable Gabris, Bill Ledesma MD, [facility] Unavailable Unavailable Gabris, Bill Ledesma MD, [facility] Unavailable Unavailable Gabris, Bill Ledesma MD, [facility] Unavailable Unavailable Gabris, Bill Ledesma MD, [facility] Unavailable Unavailable Gabris, Bill Ledesma MD, [facility] Unavailable Unavailable Gabris, Bill Ledesma MD, [facility] Unavailable Unavailable Gabris, Bill Ledesma MD, [facility] Unavailable Unavailable Gabris, Bill Ledesma MD, [facility] Unavailable Unavailable Gabris, Bill Ledesma MD, [facility] Unavailable Unavailable Gabris, Bill Ledesma MD, [facility] Unavailable Unavailable Gabris, Bill Ledesma MD, [facility] Unavailable Unavailable Gabris, Bill Ledesma MD, [facility] Unavailable Unavailable Gabris, Bill Ledesma MD, [facility] Unavailable Unavailable Gabris, Bill Ledesma MD, [facility] Unavailable Unavailable Gabris, Bill Ledesma MD, [facility] Unavailable Unavailable Gabris, Bill Ledesma MD, [facility] Unavailable Unavailable Gabris, Bill Ledesma MD, [facility] Unavailable Unavailable Gabris, Bill Ledesma MD, [facility] Unavailable Unavailable Gabris, Bill Ledesma MD, [facility] Unavailable Unavailable Gabris, Bill Ledesma MD, [facility] Unavailable Unavailable Gabris, Bill Ledesma MD, [facility] Unavailable Unavailable Gabris, Bill Ledesma MD, [facility] Unavailable Unavailable Gabris, Bill Ledesma MD, [facility] Unavailable Unavailable Gabris, Bill Ledesma MD, [facility] Unavailable Unavailable Gabris, Bill Ledesma MD, [facility] Unavailable Unavailable Gabris, Bill Ledesma MD, [facility] Unavailable Unavailable Gabris, Bill Ledesma MD, [facility] Unavailable Unavailable Gabris, Bill Ledesma MD, [facility] Unavailable Unavailable Gabris, Bill Ledesma MD, [facility] Unavailable Unavailable Gabris, Bill Ledesma MD, [facility] Unavailable Unavailable Gabris, Bill Ledesma MD, [facility] Unavailable Unavailable Gabris, Bill Ledesma MD, [facility] Unavailable Unavailable Gabris, Bill Ledesma MD, [facility] Unavailable Unavailable Gabris, Bill Ledesma MD, [facility] Unavailable Unavailable Gabris, Bill Ledesma MD, [facility] Unavailable Unavailable Gabris, Bill Ledesma MD, [facility] Unavailable Unavailable Gabris, Bill Ledesma MD, [facility] Unavailable Unavailable Gabris, Bill Ledesma MD, [facility] Unavailable Unavailable Gabris, Bill Ledesma MD, [facility] Unavailable Unavailable Gabris, Bill Ledesma MD, [facility] Unavailable Unavailable Gabris, Bill Ledesma MD, [facility] Unavailable Unavailable Gabris, Bill Ledesma MD, [facility] Unavailable Unavailable Gabris, Bill Ledesma MD, [facility] Unavailable Unavailable Gabris, Bill Ledesma MD, [facility] Unavailable Unavailable Gabris, Bill Ledesma MD, [facility] Unavailable Unavailable Gabris, Bill Ledesma MD, [facility] Unavailable Unavailable Gabris, Bill Ledesma MD, [facility] Unavailable Unavailable Gabris, Bill Ledesma MD, [facility] Unavailable Unavailable Gabris, Bill Ledesma MD, [facility] Unavailable Unavailable Gabris, Bill Ledesma MD, [facility] Unavailable Unavailable Gabris, Bill Ledesma MD, [facility] Unavailable Unavailable Gabris, Bill Ledesma MD, [facility] Unavailable Unavailable Gabris, Bill Ledesma MD, [facility] Unavailable Unavailable Gabris, Bill Ledesma MD, [facility] Unavailable Unavailable Gabris, Bill Ledesma MD, [facility] Unavailable Unavailable EDD, SHERRIE PA Unavailable Unavailable [...] is protected by Article 27-F of the [facility] Public Health law. If you continue you may have access to information: Regarding HIV / AIDS; Provided by facilities licensed or operated by the [facility] Office of Mental Health; or Provided by the [facility] Office for People With Developmental Disabilities. If such information is present, then the following [facility] mandated warning applies: This information has been [...] law may result in a fine or skilled nursing sentence or both. A general authorization for the release of medical or other information is NOT sufficient authorization for further disc losure. Allergies and Adverse Reactions Type Description Substance Reaction Status Data Source(s ) Propensity to adverse reactions NO KNOWN ALLERGIES NO KNOWN ALLERGIES [facility] Family History Family Member Name Family Member Gender Family Member Status Date o f Status Description Data Source(s) Unknown Male Problem MEDENT ([facility]) Unknown Unknown Problem MEDENT ([facility]) Unknown Unknown Problem MEDENT ([facility], ) Encounters Encounter Providers Location Date Indications Data Source(s ) Outpatient Attender: Tomás Saenz MD 12/24/2021 12:00:00 AM [facility] Outpatient Attender: TERESE MCGEE NPAttender: Mary Carmen NAM 09/23/2021 11:20:55 AM EDT - 09/23/2021 01:42:59 PM EDT [facility] ( [facility]) Unknown [address] [facility] [address] 08/27/2021 12:00:00 AM EDT eCW1 ([facility]) Unknown [address] [address] 07/16/2021 12:00:00 AM EDT eCW1 ([facility]) Outpatient [address] [id number] 07/02/2021 12:00:00 AM EDT eCW1 ([facility]) Outpatient Attender: Sandy NAM Main office - [facility] 05/17/2021 10:30:00 AM EDT MEDENT ([facility]) Outpatient Attender: Obed Heller MD Main Office 05/15/2021 10:30:00 AM EDT MEDENT ([facility]) Outpatient Attender: Baltazar Presley MD, FACCReferre r: Baltazar Presley MD, [facility] [email or web address] 05/10/2021 09:30:08 AM EDT - 05/10/2021 10:59:21 AM EDT [facility] Outpatient Attender: Baltazar Presley MD, FACCReferre r: Baltazar Presley MD, [facility] [email or web address] 05/10/2021 09:29:48 AM EDT - 05/10/2021 10:42:50 AM EDT [facility] Outpatient Attender: Charu Gunter NP Erin Ulloa Sandra ortega 05/04/2021 09:35:00 AM EDT MEDENT ([facility] Outpatient [address] [facility] [address] 04/12/2021 12:00:00 AM EDT eCW1 ([facility]) Office Visit Attender: Sandy NAM Main office - [facility] 02/12/2021 01:30:00 PM EDT MEDENT ([facility]) [place] [address] [facility] [place] [address] 01/26/2021 12:00:00 AM EST eCW1 ([facility]) Outpatient [address] [facility] [address] 01/25/2021 12:00:00 AM EST eCW1 ([facility]) Outpatient Referrer: Tomás Saenz MD 12/22/2020 12 :00:00 AM EST Presence of right artificial hip joint [facility] Presence of right artificial hip joint Outpatient Attender: Tomás Saenz MD [id number] 12/22/2020 12 :00:00 AM EST Presence of right artificial hip joint [facility] Presence of right artificial hip joint Outpatient Attender: Jonn NAM 12/14/2020 12:00:00 AM EST [facility] Unknown [address] [facility] [address] 11/30/2020 12:00:00 AM EST eCW1 ([facility]) [place] [address] [facility] [address] 10/16/2020 12:00:00 AM EST eCW1 ([facility]) [place] [address] [facility] [address] 10/16/2020 12:00:00 AM EST eCW1 ([facility]) Outpatient Attender: SHERRIE Ulloa Prima ry 10/05/2020 01:00:00 PM EST MEDENT ([facility]) [place] [address] [facility] [address] 09/28/2020 12:00:00 AM EST eCW1 ([facility]) Outpatient Attender: Keila Ulloa Prim oscar 09/27/2020 07:00:00 AM EST MEDENT ([facility]) Outpatient Attender: SHERRIE Ulloa Prima ry 09/18/2020 08:05:00 AM EDT MEDENT ([facility]) Outpatient Attender: Sandy NAM Main office [facility] 08/15/2020 02:00:00 PM EDT MEDENT ([facility], ) Immunizations Vaccine Date Status Description Data Source(s) COVID-19 VACC, MRNA(PFIZER)/PF 09/17/2021 12:00:00 AM EDT completed [facility] COVID-19 VACCINE Pfizer 09/17/2021 12:00:00 AM EDT completed [facility] Vaccine Series Complete: YESThis Data wa s Submitted to [facility] Via [employer]. COVID-19 VACCINE Pfizer 02/09/2021 12:00:00 AM EDT completed [facility] Vaccine Series Complete: YESThis Data wa s Submitted to [facility] Via [employer]. COVID-19 VACCINE Pfizer 01/19/2021 12:00:00 AM EST completed [facility] Vaccine Series Complete: NOThis Data was Submitted to [facility] Via [employer]. INFLUENZA VIRUS VACCINE QUADRIVAL [id number](6 MOS AND UP)/PF 08/05/2020 12:00:00 AM EDT [...] 05/04/2021 12:00:00 AM EDT ORAL active MEDENT ([facility], [facility]) 500 mg 04/12/2021 12:00:00 AM EDT tablet [...] ProAir RespiClick 108 (90 Base) MCG/ACT eCW1 ([facility]) 200 ACTUAT Albuterol 0.09 MG/ACTUAT Dry Powder Inhaler [ProAir] ProAir RespiClick 108 (90 Base) MCG/ACT ProAir RespiClick 108 (90 Base) MCG/ACT 01/26/2021 12:00:00 AM EST 1.0 {puff_as_needed} active [employer]Air RespiClick 108 (90 Base) MCG/ACT eCW1 ([facility]) 200 ACTUAT Albuterol 0.09 MG/ACTUAT Dry Powder Inhaler [ProAir] ProAir RespiClick 108 (90 Base) MCG/ACT ProAir RespiClick 108 (90 Base) MCG/ACT 01/26/2021 12:00:00 AM EST 1.0 {puff_as_needed} active ProAir RespiClick 108 (90 Base) MCG/ACT eCW1 ([facility]) 200 ACTUAT Albuterol 0.09 MG/ACTUAT Dry Powder Inhaler [ProAir] ProAir RespiClick 108 (90 Base) MCG/ACT ProAir RespiClick 108 (90 Base) MCG/ACT 01/26/2021 12:00:00 AM EST 1.0 {puff_as_needed} active ProAir RespiClick 108 (90 Base) MCG/ACT eCW1 ([facility]) 200 ACTUAT Albuterol 0.09 MG/ACTUAT Dry Powder Inhaler [ProAir] ProAir RespiClick 108 (90 Base) MCG/ACT ProAir RespiClick 108 (90 Base) MCG/ACT 01/26/2021 12:00:00 AM EST 1.0 {puff_as_needed} active ProAir RespiClick 108 (90 Base) MCG/ACT eCW1 ([facility]) 200 ACTUAT Albuterol 0.09 MG/ACTUAT Dry Powder Inhaler [ProAir] ProAir RespiClick 108 (90 Base) MCG/ACT ProAir RespiClick 108 (90 Base) MCG/ACT 01/26/2021 12:00:00 AM EST 1.0 {puff_as_needed} active ProAir RespiClick 108 (90 Base) MCG/ACT eCW1 ([facility]) 80 mg 12/28/2020 12:00:00 AM EST tablet [...] 10/05/2020 12:00:00 AM EST ORAL active MEDENT ([facility], [facility]) atorvastatin 80 MG Oral Tablet ATORVASTATIN CALCIUM [...] 09/27/2020 12:00:00 AM EST ORAL active MEDENT ([facility], [facility]) Albuterol 0.83 MG/ML Inhalant Solution Albuterol Sulfate 1 11/27/2019 12:00:00 AM EST active MEDENT ([facility], [facility]) benzonatate 100 MG Oral Capsule Benzonatate 09/27/2020 12:00:00 AM EST ORAL completed MEDENT ([facility], [facility]) benzonatate 100 MG Oral Capsule BENZONATATE 09/27/2020 [...] 09/18/2020 12:00:00 AM E DT active MEDENT ([facility], [facility]) Ondansetron 4 MG Disintegrating Oral Tablet Ondansetron 09/18/2020 12:00:00 AM EDT ORAL completed MEDENT ([facility]) Meclizine Hydrochloride 25 MG Oral Tablet Meclizine HCL 09/18/2020 12:00:00 AM EDT ORAL completed MEDENT ([facility]) Insurance Providers Payer name Policy type / Coverage type Policy ID Covered republican ID Covered republican's relationship to browne Policy Browne Plan Information EMPIRE PLAN [facility] U [id number] Spouse [id number] [place] Plan P [id number] M [id number] EXCELLUS BS [id number] Spo [id number] [place] [employer] [id number] Self [id number] [facility] EMPIRE [facility] [id number] 2 [id number] MAXIMIZING INDEPENDENT LIVING CHOICES O [id number] S [id number] [employer] O [id number] S [id number] EMPIRE ([facility]) O [id number] S [id number] D [employer] Claims P [id number] M [id number] ANSI-Commercial [id number] [place] Plan P UNAVAILABLE S UNAVAI LABLE [facility] [place] Commercial [id number] Family Dependent [id number] [place] ([place], [place]) Commercial [id number] Self [id number] [facility] ([facility] [id number] Family Dependent [id number] [facility] ([facility]) [id number] Family Dependent [id number] ANSI-Commercial [id number] [facility] Commercial [id number] Family Dependent [id number] ANSI-Commercial [id number] ANSI-Commercial [id number] [facility] Commercial [id number] Self [id number] [place] Commercial [id number] Self [id number] [facility] Commercial [id number] Family Dependent [id number] [facility] Commercial [id number] Family Dependent [id number] [facility] [employer] [id number] Family Dependent [id number] [place] ([place] Commercial [id number] Self [id number] [place] ([place] Commercial [id number] Self [id number] [facility] [id number] [facility] [place] Commercial [id number] Family Dependent [facility] P [id number] S [id number] [facility] [id number] [facility] DIV [id number] [facility] [id number] [facility] [id number] [id number] [facility] DIV [id number] Problems, Conditions, and Diagnoses Code Display Name Description Problem Type Effective Dates Data Source(s) 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 Occlusion and stenosis of bilateral stoner Diagnosis 05/10/2021 09:30:08 AM EDT [facility] E78.5 Hyperlipidemia, unspecified Hyperlipidemia, unspecifie d Diagnosis 05/10/2021 09:30:08 AM EDT [facility] I10 Essential (primary) hypertension Essential (primary) h ypertension Diagnosis 05/10/2021 09:30:08 AM EDT [facility] I34.0 Nonrheumatic mitral (valve) insufficienc y Nonrheumatic mitral (valve) insufficienc Diagnosis 05/10/2021 09:30:08 AM EDT [facility] Z12.39 [id number] Encounter for screen ing for malignant neoplasm of breast, unspecified screening modality Problem 01/25/2021 12:00:00 AM EST eC W1 ([facility]) Z12.4 [id number] Cervical cancer screening Problem 01/25/2021 12:00:00 AM EST eCW1 ([facility]) Z12.11 [id number] Colon cancer screening Problem 01/25/2021 12 :00:00 AM EST eCW1 ([facility]) Z96.641 [id number] History of total right hip arthroplast y Problem 09/28/2020 12:00:00 AM EST eCW1 ([facility]) Surgeries/Procedures Procedure Description Date Indications Data Source(s) COLONOSCOPY FLX DX W/WO COLLJ SPECIMENS 06/20/2021 12: 00:00 AM EDT MEDENT ([facility]) OFFICE OUTPATIENT VISIT 25 MINUTES 05/17/2021 12:00:00 AM EDT MEDENT ([facility]) OFFICE OUTPATIENT NEW 30 MINUTES 05/15/2021 12:00:00 A M EDT MEDENT ([facility]) PHYSICIAN TELEPHONE EVALUATION 5-10 MIN 02/12/2021 12: 00:00 AM EDT MEDENT ([facility]) PRESSURIZED/NONPRESSURIZED INHALATION TREATMENT 2019 12:00:00 AM EST MEDENT ([facility], [facility]) Results ID Date Data Source [id number] 07/02/2021 12:00:00 AM EDT eCW1 ([facility]) Name Value Range Interpretation Code Description Data Rhonda rce(s) Supporting Document(s) Hemoglobin A1c/Hemoglobin.total in Blood 6.0 HEMOGLOBIN A1c eCW1 ([facility]) ID Date Data Source Comprehensive Metabolic Profile (CMP) 07/02/2021 12:00:00 AM EDT eCW1 ([facility]) Name Value Range Interpretation Code Description Data Rhonda rce(s) Supporting Document(s) 83 70-100 GLUCOSE, FASTING eCW1 ([facility]) 19 7-18 BLOOD UREA NITROGEN eCW1 ([facility]) 0.73 0.55-1.30 CREATININE FOR GFR eCW1 ([facility]) > 60.0 >45 GLOMERULAR FILTRATION RATE eCW 1 ([facility]) 140 136-145 SODIUM LEVEL eCW1 ([facility]) 105 98-107 CHLORIDE LEVEL eCW1 ([facility]) 4.5 3.5-5.1 POTASSIUM SERUM eCW1 ([facility]placed by [facility]) 16 7-37 AST/SGOT eCW1 ([facility]) 9.6 8.8-10.2 CALCIUM LEVEL eCW1 ([facility]) 31 21-32 CARBON DIOXIDE LEVEL eCW1 ([facility]) 130 45-117 ALKALINE PHOSPHATASE eCW1 ([facility]) 0.3 0.2-1.0 BILIRUBIN,TOTAL eCW1 (Replaced by [facility]) 30 12-78 ALT/SGPT eCW1 ([facility]) 7.4 6.4-8.2 TOTAL PROTEIN eCW1 ([facility]) 3.7 3.2-5.2 ALBUMIN eCW1 ([facility]) 1.0 1.2-2.2 ALBUMIN/GLOBULIN RATIO eCW1 ([facility]) ID Date Data Source [id number] 05/10/2021 10:50:30 AM EDT [facility] Name Value Range Interpretation Code Description Data Rhonda rce(s) Supporting Document(s) &PDF [facility] [id number]/[id number] vci [file] AgICAgICAgICAgICAgICAgICAgICAgICAgICAgICAgICAgICAgICAgICAgICAgICAgICAgICAgICAgIC AgICAgICAgICAgICAgICAgICAgICAgICAgICAgICAgDQogICAgICAgICAgICAgICAgICAgICAgICAgIC AgICAgICAgICAgICAgICAgICAgICAgICAgICAgICAg ICAgICAgICAgICAgICAgICAgICAgICAgICAgICAgICAgICAgICAgICAgDQogICAgICAgICAgICAgICAg ICAgICAgICAgICAgICAgICAgICAgICAgICAgICAgICAgICAgICAgICAgICAgICAgICAgICAgICAgICAg ICAgICAgICAgICAgICAgICAgICAgICAgDQogICAgIC AgICAgICAgICAgICAgICAgICAgICAgICAgICAgICAgICAgICAgICAgICAgICAgICAgICAgICAgICAgIC AgICAgICAgICAgICAgICAgICAgICAgICAgICAgICAgICAgDQogICAgICAgICAgICAgICAgICAgICAgIC AgICAgICAgICAgICAgICAgICAgICAgICAgICAgICAg ICAgICAgICAgICAgICAgICAgICAgICAgICAgICAgICAgICAgICAgICAgICAgDQogICAgICAgICAgICAg ICAgICAgICAgICAgICAgICAgICAgICAgICAgICAgICAgICAgICAgICAgICAgICAgICAgICAgICAgICAg ICAgICAgICAgICAgICAgICAgICAgICAgICAgDQogIC AgICAgICAgICAgICAgICAgICAgICAgICAgICAgICAgICAgICAgICAgICAgICAgICAgICAgICAgICAgIC AgICAgICAgICAgICAgICAgICAgICAgICAgICAgICAgICAgICAgDQogICAgICAgICAgICAgICAgICAgIC AgICAgICAgICAgICAgICAgICAgICAgICAgICAgICAg ICAgICAgICAgICAgICAgICAgICAgICAgICAgICAgICAgICAgICAgICAgICAgICAgDQogICAgICAgICAg ICAgICAgICAgICAgICAgICAgICAgICAgICAgICAgICAgICAgICAgICAgICAgICAgICAgICAgICAgICAg ICAgICAgICAgICAgICAgICAgICAgICAgICAgICAgDQ ogICAgICAgICAgICAgICAgICAgICAgICAgICAgICAgICAgICAgICAgICAgICAgICAgICAgICAgICAgIC JjQAHoIWJbPFGmYVOgCUZdXHMqUEGgYQTrAVOeXGKoFPCqUBEoQGKzXAq9R7nyPQZnATCiJY3dAVf3Pq 8+MVzDUnFeCVW0srVktB7LKL9az8OuCSvoBBGxi2Eg UEm2IC3VQWImIFfdTR8HFHiqpx3UINRwWPQzrQPGw0dfZaQkWYC0JKPeHlhjUS6HXRQwS5mzvgLgVZXg JDPALVbnZBMZEK2BRuFvX8HrwW87DBZTLr3+ODnkmcBhXvoHHpJyEWTit3RbVOg5ZJ3MMFSbFAinYY0R NNVvhS5kWYfcAB6JQeDmDVIiERNTMkCnZ51kpNYvRO u6L8TrPcZjFDEdWjoyQTRyAGzpAcNzSEEvAeHzASxjJW6+ID4+JAwuYX4FYIztwwCmDOTbJn6EYNOrKL V0CECidWVsOgWtGELBRIjiQI8BiTOcBGS0iE5jNQbfBXYlSRLlH1fQIvYpnJeqDL01bTmmfiJhiVQjCR o+Cm8NRO9nq4InPMv9fiImDRguZTO6WFkoGMMlVFJs KVBdGNO3MBV0TKMEKiOtNRSyHUImVFktLJTxPHEqbd2WPLHhLADqAkeyRYYqPGPoTXSlEZrzWVRnHML0 Cyb0LTLnAGNzUH4TBxQpTHQbYZBmLWSlWGHoZVUgcp2MBATbEJMtDlPnWYHfDFQsGBQeTPeySUYeZTRr WoRxRMMiQKIfED4SOcFzVFQbSVI2CMktSSBoXHZsis 8BBOTjEIMxFVQdCsUzYFWkROUdCYwwIOZlMVF3KBglJORoOHZfCR9WKqKqJTOkLKCvJgjkJJJcFTHmiz 2ECDKtNTUjBbY0CCYsQGRbWXYhXGpxSIPaMWG7CnG0KQLnJXJsBP8ULeArNBZmYWb5SJWdNBDdYFMfah 5XUWKoOFTvYbR9BALfLCCgKTChFNkeHNQsRBZsQOS7 EOTfEHAcYL7ZOcKdMAIzAVQ1LvDtZXQsZCKlfj0YZOPmSOLmHqD6JxHhNRXzQSSdUJbiJBJpLXZjZzIl XUBlQUHyDS7JHhLhBMDyATW7YrTrWAUuTXItiv5MJDQvARFhAOVdVxToUCXwVGJtYJhxHIUjWPB4NZa6 XMIcRBTcDM7TYbOnUMTtACH9RjVyXHBcSXAplv8MNB NbWQEqMIfmEtQgTPZpKBPpCFpnRYIbFGI4EEz1NOOfSNItGU9QLaJkBQJqFQNnHlEuXODkEPXegj2MHM YgVXNvEqE7WkXnDONaXDLbLQcqQREeFXV6CsGuDQIlYNXxPB6NBbCmFGAnLUP4VSObDAXeHWUgim2TKN JlSEFcBqTqShFxGFIjLIJeNSjcNXYbYDY4LULoUEDj TNErLR9SWrUiFCBvPFy2NRZvJUMeTVXugn4HMSDyXEFiIVM2VEQnMCZwOQQfIYwaSBVmCZF8AhxoHYOq XBTjWA0PJbLyCMhgKJUPXpp1SXfiW5v4MYHrLU7PZ8Puu5YfEyRsZUBRXItmFT7rdxQgLMCwEi7RQ2qC OtgdUJM6ZxxgPiRzCpT4JHDiNpCkOUHxKWA6THAvPd P8Ow6dUBYdKcW8LjZuGoMzUBWuTDRxAgBbIXI0RwA1VEWtTek9IeIwZJ0EVb0EKvJ5YHR5pFPtDv8NCR l2CjhOYzRyLB0FRDe= ID Date Data Source PLZ CHEST 2 VIEW 04/12/2021 12:00:00 AM EDT eCW1 ([facility]) Name Value Range Interpretation Code Description Data Rhonda rce(s) Supporting Document(s) PLZ CHEST 2 VIEW eCW1 ([facility]) ID Date Data Source HEPATITIS B SURFACE ANTIGEN 04/12/2021 12:00:00 AM EDT eCW1 ([facility]) Name Value Range Interpretation Code Description Data Rhonda rce(s) Supporting Document(s) NEGATIVE NEGATIVE HEPATITIS B SURFACE ANTIG EN eCW1 ([facility]) ID Date Data Source HEPATITIS A IgG 04/12/2021 12:00:00 AM EDT eCW1 ([facility]) Name Value Range Interpretation Code Description Data Rhonda rce(s) Supporting Document(s) Positive Negative HEPATITIS A IgG TOTAL eCW 1 ([facility]) ID Date Data Source HEPATITIS A ANTIBODY IGM 04/12/2021 12:00:00 AM EDT eCW1 ([facility]) Name Value Range Interpretation Code Description Data Rhonda rce(s) Supporting Document(s) NEGATIVE NEGATIVE HEPATITIS A ANTIBODY IGM eCW1 ([facility]) ID Date Data Source HEPATITIS C ANTIBODY INDEX 04/12/2021 12:00:00 AM EDT eCW1 ( [facility]) Name Value Range Interpretation Code Description Data Rhonda rce(s) Supporting Document(s) 0.0 <0.8 HEPATITIS C VIRUS LUIGI INDEX eC W1 ([facility]) ID Date Data Source HEPATITIS B SURFACE ANTIBODY 04/12/2021 12:00:00 AM EDT eCW1 ([facility]) Name Value Range Interpretation Code Description Data Rhonda rce(s) Supporting Document(s) NEGATIVE POSITIVE HEPATITIS B SURFACE ANTIB SATNAM eCW1 ([facility]) ID Date Data Source ALK PHOS FRACTIONATED 04/12/2021 12:00:00 AM EDT eCW1 ([facility]) Name Value Range Interpretation Code Description Data Rhonda rce(s) Supporting Document(s) 87 STABLE ALKPHOS eCW1 ([facility]) 47 LABILE ALKPHOS eCW1 ([facility]) 35.1 % LABILE ALKALINE PHOSPHATASE eCW1 ([facility]) ID Date Data Source VITAMIN D 25-HYDROXY 01/25/2021 12:00:00 AM EST eCW1 ([facility]) Name Value Range Interpretation Code Description Data Rhonda rce(s) Supporting Document(s) 57.2 30.0-100.0 TOTAL 25(OH) VITAMIN D eC W1 ([facility]) ID Date Data Source PTH INTACT 01/25/2021 12:00:00 AM EST eCW1 ([facility]) Name Value Range Interpretation Code Description Data Rhonda rce(s) Supporting Document(s) 47.5 18.5-88.0 PTH INTACT eCW1 ([facility]) ID Date Data Source LIPID PANEL (CARDIAC RISK) 01/25/2021 12:00:00 AM EST eCW1 ( [facility]) Name Value Range Interpretation Code Description Data Rhonda rce(s) Supporting Document(s) Triglyceride [Mass/volume] in Serum or Plasma by calculation 226 <150 TRIGLYCERIDES LEVEL eCW1 ([facility]) TRIGLYCERIDES LEVEL Cholesterol [Moles/volume] in Serum or Plasma 191 <200 CHOLESTEROL LEVEL eCW1 ([facility]) CHOLESTEROL LEVEL 132 NON-HDL-C eCW1 ([facility]) NON-HDL-C Cholesterol in HDL [Moles/volume] in Serum or Plasma 59 >40 HDL CHOLESTEROL eCW1 ([facility]) HDL CHOLESTEROL Cholesterol in LDL [Mass/volume] in Serum or Plasma by calculation 87 <100 LDL CHOLESTEROL eCW1 ([facility]) LDL CHOLESTEROL 3.237 <5 CHOLESTEROL RISK RATIO eCW1 ([facility]) CHOLESTEROL RISK RATIO ID Date Data Source CPK CREATINE PHOSPHOKINASE 01/25/2021 12:00:00 AM EST eCW1 ( [facility]) Name Value Range Interpretation Code Description Data Rhonda rce(s) Supporting Document(s) 121 26-192 CPK CREATINE PHOSPHOKINASE eCW 1 ([facility]) ID Date Data Source CBC with Differential 01/25/2021 12:00:00 AM EST eCW1 ([facility]) Name Value Range Interpretation Code Description Data Rhonda rce(s) Supporting Document(s) 8.2 4.0-10.0 WHITE BLOOD COUNT eCW1 ([facility]) 4.25 4.00-5.40 RED BLOOD COUNT eCW1 (Replaced by [facility]) 40.5 36.0-47.0 HEMATOCRIT eCW1 ([facility]) 12.4 12.0-15.5 HEMOGLOBIN eCW1 ([facility]) 29.2 27.0-33.0 MEAN CORPUSCULAR HEMOGLOB IN eCW1 ([facility]) 95.3 80.0-96.0 MEAN CORPUSCULAR VOLUME e CW1 ([facility]) 30.6 32.0-36.5 MEAN CORPUSCULAR HGB CONC eCW1 ([facility]) 29.5 24.0-44.0 LYMPH % eCW1 ([facility]) 14.8 11.5-14.5 RED CELL DISTRIBUTION WID TH eCW1 ([facility]) 55.5 36.0-66.0 NEUTROPHILS % eCW1 ([facility]) 284 150-450 PLATELET COUNT, AUTOMATED eCW1 ([facility]) 0.6 0.0-1.0 BASO % eCW1 ([facility]) 12.0 2.0-8.0 MONO % eCW1 ([facility]) 4.6 1.5-8.5 NEUTROPHILS # eCW1 ([facility]) 2.3 0.0-3.0 EOS % eCW1 ([facility]) 1.0 0.0-0.8 MONO # eCW1 ([facility]) 0.1 0.0-0.2 BASO # eCW1 ([facility]) 2.4 1.5-5.0 LYMPH # eCW1 ([facility]) 0.2 0.0-0.5 EOS # eCW1 ([facility]) ID Date Data Source [id number] 12/22/2020 12:28:[address] [facility] XR HIP- UNILAT, 2-3 VIEWS [id number] RE SULTInterpreted by:Tomás Saenz MDIndication: Status post [...] rce(s) Supporting Document(s) ID Date Data Source [id number] 12/22/2020 12:27:[address] [facility] Name Value Range Interpretation Code Description Data Rhonda rce(s) Supporting Document(s) Progress Note [facility] ERMNUc1vPhLHMkDh19/ZXMqiLEZfi3FmCTjhOAb8ZWzoIJYuO4QdVEQ3sP1jIJD8KXsOPyLtVxVbEJD3 [facility] [file] GAVZ7Ya9n0VQPDd9ANi8nw8Pwuk+BUSINESS DATA ANALYST+JsU1EY9p9O/+3w7Cb4j6Wm1+qRM3JVO3BvEs6XSqijl5JlbGP [file] AgICAgICAgICAgICAgICAgICAgICAgICAgICAgICAgICAgICAgICAgICAgICAgICAgICAgICAgICAgIC AgICAgICAgICAgICAgICAgICAgICAgICAgICAgICAg ICAgICANCiAgICAgICAgICAgICAgICAgICAgICAgICAgICAgICAgICAgICAgICAgICAgICAgICAgICAg ICAgICAgICAgICAgICAgICAgICAgICAgICAgICAgICAgICAgICAgICAgICAgICANCiAgICAgICAgICAg ICAgICAgICAgICAgICAgICAgICAgICAgICAgICAgIC AgICAgICAgICAgICAgICAgICAgICAgICAgICAgICAgICAgICAgICAgICAgICAgICAgICAgICAgICANCi AgICAgICAgICAgICAgICAgICAgICAgICAgICAgICAgICAgICAgICAgICAgICAgICAgICAgICAgICAgIC AgICAgICAgICAgICAgICAgICAgICAgICAgICAgICAg ICAgICAgICANCiAgICAgICAgICAgICAgICAgICAgICAgICAgICAgICAgICAgICAgICAgICAgICAgICAg ICAgICAgICAgICAgICAgICAgICAgICAgICAgICAgICAgICAgICAgICAgICAgICAgICANCiAgICAgICAg ICAgICAgICAgICAgICAgICAgICAgICAgICAgICAgIC AgICAgICAgICAgICAgICAgICAgICAgICAgICAgICAgICAgICAgICAgICAgICAgICAgICAgICAgICAgIC ANCiAgICAgICAgICAgICAgICAgICAgICAgICAgICAgICAgICAgICAgICAgICAgICAgICAgICAgICAgIC AgICAgICAgICAgICAgICAgICAgICAgICAgICAgICAg ICAgICAgICAgICANCiAgICAgICAgICAgICAgICAgICAgICAgICAgICAgICAgICAgICAgICAgICAgICAg ICAgICAgICAgICAgICAgICAgICAgICAgICAgICAgICAgICAgICAgICAgICAgICAgICAgICANCiAgICAg ICAgICAgICAgICAgICAgICAgICAgICAgICAgICAgIC AgICAgICAgICAgICAgICAgICAgICAgICAgICAgICAgICAgICAgICAgICAgICAgICAgICAgICAgICAgIC AgICANCiAgICAgICAgICAgICAgICAgICAgICAgICAgICAgICAgICAgICAgICAgICAgICAgICAgICAgIC AgICAgICAgICAgICAgICAgICAgICAgICAgICAgICAg ICAgICAgICAgICAgICANCjw/nCTzP9vjxHGbriO2R4rjDk2NTi5JCN2md6JrVSDxHQqygjViKzwVLbDh FWKyBtmSQxr1TKnbTB8RuCNgJ3UvP0GuHQfdVU7CDFRtBXUjqABxIWFySNYkZkE6NFEnVLfbTD8CiLUa VDvdYGUhUZQpGgZoUMDyFE3YPUHxA408gsDyLq5BKd 0MKwLgLF8qro4UIeYyFKPuBucIFek3NBplHC0GlHFcdTIwQAGmZXAAJjJhS5eam5UlTsZhABNFVOieZP 0Xv2YcdQWrXWj+Xw8SVO9kw3ZuQFveWQRlHI3zmg3GUVdJVnToZ5PfpDwoCAEfd0mwSORsQM3wsTVfVO M0UYlnhWXugfOUUK2to1mjpftrFKlgLTYkNEEyIO3i YU0iRECfLSBaJtTgUBBLPS9HIXApKAUidHOeKGBvFFSXZM3EDTsaTKQ9SDIcxqHizGMeTKqvKJ4ERGQe bnQgMjQgMCBSDQo+Qg0ZQK2bn0PdAWvjBmIqBH0ysb3JSAfOIgXxY1B2xXIvR9L8DDqtXj9XICEgFYEr BvKhAOIEXCpzTW1ECJ0geyD2HM1FtRKwWDJzIZIsqD MtDWe5T60kaJFiCTdwGW1CPKI+Leny+Re9BSECdYRZqWQOuSrUqNHMFNpIrK8DuZ2QEj9VwR7GyKX44bY rlbfEdJTgbQF1CZS2qIKOcYDIBGI3NhNIjsF3ikgEkBEUvUNPKGsKvT73yuXBsCYAlSBSsBVLqWc6UKN NoP7WscpHetBbekkUxKLNwDMOGOL2AZUucdkJdvWVq dNijRT78gXkiNL1UMa1LLcTqUE4iec8SvLBiSm8PDWQsMk0QUYUlMHAnIPGrRMZ4WOZkMxVkOTrvORUg XTIvYQW2GROpVUCcPF7RUbFiKNGwFyN8HiBsEUEcWMNpyp5UJEHzKYRpUCKePbItTJYcXGSpXQvbCZAr EGJkQOW3TVBuKKCgFE5PHnJiWLEeQVL8CDCdSXZaWW Qogp1IVWVcOAVsTegpKqAeRQLpKCKuTIlxHNZxCEF0QjFjJTZuOGFaSS3SLeNwPGSwGPO7QgJuSHEjAW Dqnq0QKGIuTTLrESh0YLWmBVOwZTAbDOanRHTnUOY7XZviGBFvXKCcTV8NTwQkOBLhHCIdDgAbWMRkLF Dqyh2WKYMxHXCeDvJiPGAvOHAvLEBcCOjpMNEdTVV5 DlRpNKAlEFJeTN2QVoWkSSPtOHk6ZIJxIZHpDEPvcs5KQOIlCMGeATDrBuDaEZQqFYScODarRNLoQASj HLdaEZQuWRYdTA4GCaCbPPJfBbR2TVUiWCHvQDMcnc0QWINpFFHuPNh9LUApWBPiQGCoOHgjWKKbBFAv OSHfGYTtHJAdND7IObMhYIBpMiLrLCNtRTKmORGekg 3WWOCmQXLiQeY4MnFzQIQwUNRoGRebLYMuLFOvWKWdOZGgUHGzFH4HTjFrSIJmHsX0DgrdJYQfUEDnje 7OQRZgGTHbOUYqCQXaIMTeDTUoIBuzZTZeYXG0XybjXLBoRLOmRQ9EKeDyIAJuHjM3QqEmUEQuGHZgmq 0UcEAueOcnnq1YRDyAFs8BxTgwQMF9DJfbJj0onLQu ZjXuDYQJJb7NadUoSEBfJJWXEOptUIWiPQqpFIVmSXBzKSCrVJw5NOP2VLQqHJFyDdKsRkJeRokuAvV3 SjA6NSS4DXE7YEYfJNC5TmOsOHVqYZT4QOH5A5QwN8R+TF9tLGu+Vt9Lg5AxtgD1gvAeHRweSMa0DZ7K XMRSE5PHHj== ID Date Data Source [id number] 09/18/2020 09:10:00 AM EDT MEDENT ([facility]) Name Value Range Interpretation Code Description Data Rhonda rce(s) Supporting Document(s) Magnesium [Mass/volume] in Serum or Plasma 2.2 mg/dL 1.8-2.4 MEDENT ([facility], [facility]) ID Date Data Source [id number] 09/18/2020 09:10:00 AM EDT MEDENT ([facility]) Name Value Range Interpretation Code Description Data Rhonda rce(s) Supporting Document(s) Glucose, Fasting 116 mg/dL 70-100 MEDENT ([facility], [facility]) Blood Urea Nitrogen 19 mg/dL 7-18 MEDENT ([facility], [facility]) Glomerular Filtration Rate Laboratory test result MEDENT ([facility], [facility]) <content>Units are mL/min/1.73 m2</content>
<content></content>
<content>Chronic Kidney Disease Staging per NKF:</content>
<content></content>
<content>Stage I & II GFR >=60 Normal to Mildly Decreased</content>
<content>Stage III GFR 30- 59 Moderately Decreased</content>
<content>Stage IV GFR 15-29 Severely Decreased</content>
<content>Stage V GFR <15 Very Little GFR Left</content>
<content>ESRD GFR <15 on REED POLISHER</content>
<content></content> Creatinine For GFR 0.66 mg/dL 0.55-1.30 MEDENT ([facility], [facility]) Potassium Serum 4.9 meq/L 3.5-5.1 MEDENT ([facility], [facility]) Sodium Level 138 meq/L 136-145 MEDENT ([facility], [facility]) Chloride Level 105 meq/L 98-107 MEDENT ([facility], [facility]) Calcium Level 9.3 mg/dL 8.8-10.2 MEDENT ([facility], [facility]) Carbon Dioxide Level 31 meq/L 21-32 [facility] ( [facility]) Anion Gap 2 meq/L 8-16 MEDENT ([facility], [facility]) ID Date Data Source [id number] 09/18/2020 09:10:00 AM EDT MEDENT ([facility], [facility]) Name Value Range Interpretation Code Description Data Rhonda rce(s) Supporting Document(s) White Blood Count 6.8 10 4.0-10.0 [facility]) Hemoglobin 12.5 g/dL 12.0-15.5 MEDENT ([facility], [facility]) Red Blood Count 4.35 10 4.00-5.40 MEDENT ([facility], [facility]) Hematocrit 41.7 % 36.0-47.0 MEDENT ([facility], [facility]) Mean Corpuscular Volume 95.9 fl 80.0-96.0 M EDENT ([facility], [facility]) Mean Corpuscular HGB Conc 30.0 g/dL 32.0-36.5 MEDENT ([facility], [facility]) Mean Corpuscular Hemoglobin 28.7 pg 27.0-33.0 MEDENT ([facility], [facility]) Neutrophils % 63.8 % 36.0-66.0 MEDENT ([facility], [facility]) Red Cell Distribution Width 14.9 % 11.5-14.5 MEDENT ([facility], [facility]) Platelet Count, Automated 289 10 150-450 MEDENT ([facility], [facility]) Lymph % 23.8 % 24.0-44.0 MEDENT ([facility], [facility]) Antelope % 10.5 % 0.0-5.0 MEDENT ([facility], [facility]) Eos % 1.2 % 0.0-3.0 MEDENT ([facility], [facility]) Immature Granulocyte % 0.1 % 0-3.0 MEDENT ([facility], [facility]) Baso % 0.6 % 0.0-1.0 MEDENT ([facility], [facility]) Neutrophils # 4.3 10 1.5-8.5 MEDENT ([facility], [facility]) Nucleated Red Blood Cell % 0.0 % 0-0 MED ENT ([facility], [facility]) Antelope # 0.7 10 0.0-0.8 MEDENT ([facility], [facility]) Lymph # 1.6 10 1.5-5.0 MEDENT ([facility], [facility]) Eos # 0.1 10 0.0-0.5 MEDENT ([facility], [facility]) Baso # 0.0 10 0.0-0.2 MEDENT ([facility], [facility]) Procedure Social History Code Duration Value Status Description Data Source(s ) Smoking 07/02/2021 12:00:00 AM EDT Former Smoker completed Former Smoker eCW1 ([facility]) Smoking 07/02/2021 12:00:00 AM EDT Former Smoker completed Former Smoker eCW1 ([facility]) Smoking 07/02/2021 12:00:00 AM EDT Former Smoker completed Former Smoker eCW1 ([facility]) Smoking 05/04/2021 12:00:00 AM EDT Patient is a former smoker completed Patient is a former smoker MEDENT ([facility]) Smoking 04/12/2021 12:00:00 AM EDT Former Smoker completed Former Smoker eCW1 ([facility]) Smoking 01/25/2021 12:00:00 AM EST Former Smoker completed Former Smoker eCW1 ([facility]) Smoking 01/25/2021 12:00:00 AM EST Former Smoker completed Former Smoker eCW1 ([facility]) Smoking 09/28/2020 12:00:00 AM EST Former Smoker completed Former Smoker eCW1 ([facility]) Smoking 09/28/2020 12:00:00 AM EST Former Smoker completed Former Smoker eCW1 ([facility]) Smoking 09/28/2020 12:00:00 AM EST Former Smoker completed Former Smoker eCW1 ([facility]) Smoking 09/28/2020 12:00:00 AM EST Former Smoker completed Former Smoker eCW1 ([facility]) Vital Signs ID Date Data Source UNK Name Value Range Interpretation Code Description Data Source(s) Body weight 229 [lb_av] 229 [lb_av] eCW1 ([facility]) Body height 66 [in_i] 66 [in_i] eCW1 ([facility]) Body mass index (BMI) [Ratio] 36.96 kg/m2 36.96 kg/m2 W1 ([facility]) Heart rate 87 /min 87 /min eCW1 (Replaced by [facility]) Respiratory rate 18 /min 18 /min eCW1 ([facility]) Body temperature 97.6 [degF] 97.6 [degF] eCW1 ( [facility]) Systolic blood pressure 118 mm[Hg] 118 mm[Hg] e CW1 ([facility]) Diastolic blood pressure 78 mm[Hg] 78 mm[Hg] eCW1 ([facility]) Systolic blood pressure 118 mm[Hg] 118 mm[Hg] M EDENT ([facility], ) Diastolic blood pressure 80 mm[Hg] 80 mm[Hg] MEDENT ([facility], ) Heart rate 76 /min 76 /min MEDENT ([facility], ) Respiratory rate 16 /min 16 /min MEDENT ( [facility], ) Body height 67 [in_i] 67 [in_i] MEDENT ([facility]) 5'7" Heart rate 74 /min 74 /min MEDENT ([facility]) Body mass index (BMI) [Ratio] 36.3 kg/m2 36.3 k g/m2 MEDENT ([facility]) Body weight 105.235 kg 105.235 kg MEDENT ([facility]) Body temperature 97.2 [degF] 97.2 [degF] MEDENT ([facility]) Body weight 232.00 [lb_av] 232.00 [lb_av] MEDEN T ([facility]) Systolic blood pressure 128 mm[Hg] 128 mm[Hg] M EDENT ([facility]) Diastolic blood pressure 84 mm[Hg] 84 mm[Hg] MEDENT ([facility]) Body mass index (BMI) [Ratio] 36.5 kg/m2 36.5 k g/m2 MEDENT ([facility], [facility]) Systolic blood pressure 145 mm[Hg] 145 mm[Hg] M EDENT ([facility], [facility]) Diastolic blood pressure 96 mm[Hg] 96 mm[Hg] MEDENT ([facility], [facility]) Heart rate 58 /min 58 /min MEDENT ([facility], [facility]) Respiratory rate 22 /min 22 /min MEDENT ( [facility], [facility]) Oxygen saturation in Arterial blood by Pulse oximetry 97 % 97 % MEDENT ([facility], [facility]) Body temperature 97.8 [degF] 97.8 [degF] MEDENT ([facility], [facility]) Body weight 233.00 [lb_av] 233.00 [lb_av] MEDEN T ([facility], [facility]) Body height 67 [in_i] 67 [in_i] MEDENT ([facility] 5'7" Body weight 232 [lb_av] 232 [lb_av] eCW1 ([facility]) Body height 66 [in_i] 66 [in_i] eCW1 ([facility]) Body mass index (BMI) [Ratio] 37.44 kg/m2 37.44 kg/m2 eCW1 ([facility]) Heart rate 91 /min 91 /min eCW1 (Replaced by [facility]) Respiratory rate 18 /min 18 /min eCW1 ([facility]) Body temperature 97.6 [degF] 97.6 [degF] eCW1 ( [facility]) Systolic blood pressure 120 mm[Hg] 120 mm[Hg] e CW1 ([facility]) Diastolic blood pressure 78 mm[Hg] 78 mm[Hg] eCW1 ([facility]) Body weight 245 [lb_av] 245 [lb_av] eCW1 ([facility]) Body height 66 [in_i] 66 [in_i] eCW1 ([facility]) Body mass index (BMI) [Ratio] 39.54 kg/m2 39.54 kg/m2 eCW1 ([facility]) Heart rate 93 /min 93 /min eCW1 (Replaced by [facility]) Respiratory rate 18 /min 18 /min eCW1 ([facility]) Body temperature 98.7 [degF] 98.7 [degF] eCW1 ( [facility]) Systolic blood pressure 116 mm[Hg] 116 mm[Hg] e CW1 ([facility]) Diastolic blood pressure 78 mm[Hg] 78 mm[Hg] eCW1 ([facility]) Systolic blood pressure 127 mm[Hg] 127 mm[Hg] M EDENT ([facility] Diastolic blood pressure 82 mm[Hg] 82 mm[Hg] MEDENT ([facility]) Heart rate 90 /min 90 /min MEDENT ([facility]) Respiratory rate 16 /min 16 /min MEDENT ( [facility], [facility]) Oxygen saturation in Arterial blood by Pulse oximetry 99 % 99 % MEDENT ([facility], [facility]) Body temperature 98.7 [degF] 98.7 [degF] MEDENT ([facility], [facility]) Body weight 240.00 [lb_av] 240.00 [lb_av] MEDEN T ([facility], [facility]) Body height 67 [in_i] 67 [in_i] MEDENT ([facility]) 5'7" Body mass index (BMI) [Ratio] 37.6 kg/m2 37.6 k g/m2 [facility], [facility]) Body weight 241 [lb_av] 241 [lb_av] W1 ([facility]) Body height 66 [in_i] 66 [in_i] eCW1 ([facility]) Body mass index (BMI) [Ratio] 38.89 kg/m2 38.89 kg/m2 eCW1 ([facility]) Heart rate 90 /min 90 /min W1 ([facility]) Respiratory rate 18 /min 18 /min W1 ([facility]) Body temperature 97.4 [degF] 97.4 [degF] eCW1 ( [facility]) Systolic blood pressure 128 mm[Hg] 128 mm[Hg] e CW1 ([facility]) Diastolic blood pressure 68 mm[Hg] 68 mm[Hg] eCW1 ([facility]) Systolic blood pressure 148 mm[Hg] 148 mm[Hg] M EDENT ([facility], [facility]) Diastolic blood pressure 82 mm[Hg] 82 mm[Hg] MEDENT ([facility], [facility]) Body temperature 98.6 [degF] 98.6 [degF] MEDENT ([facility], [facility]) Body weight 240.00 [lb_av] 240.00 [lb_av] MEDEN T ([facility], [facility]) Body height 67 [in_i] 67 [in_i] MEDENT ([facility]) 5'7" Body mass index (BMI) [Ratio] 37.6 kg/m2 37.6 k g/m2 MEDENT ([facility], [facility]) Heart rate 80 /min 80 /min MEDENT ([facility], [facility]) Respiratory rate 16 /min 16 /min MEDENT ( [facility], [facility]) Oxygen saturation in Arterial blood by Pulse oximetry 99 % 99 % MEDENT ([facility], [facility]) Systolic blood pressure 120 mm[Hg] 120 mm[Hg] M EDENT ([facility], [facility]) Body height 67 [in_i] 67 [in_i] MEDENT ([facility], [facility]) 5'7" Body temperature 98.3 [degF] 98.3 [degF] MEDENT ([facility], [facility]) Diastolic blood pressure 84 mm[Hg] 84 mm[Hg] MEDENT ([facility], [facility]) Heart rate 76 /min 76 /min MEDENT ([facility], [facility]) Respiratory rate 18 /min 18 /min MEDENT ( [facility], [facility]) Oxygen saturation in Arterial blood by Pulse oximetry 96 % 96 % MEDENT ([facility], [facility]) Body weight 240.00 [lb_av] 240.00 [lb_av] MEDEN T ([facility], [facility]) Body mass index (BMI) [Ratio] 37.6 kg/m2 37.6 k g/m2 MEDENT ([facility]) Systolic blood pressure 124 mm[Hg] 124 mm[Hg] M EDENT ([facility] ) Diastolic blood pressure 80 mm[Hg] 80 mm[Hg] MEDENT ([facility]) Heart rate 76 /min 76 /min MEDENT ([facility]) Respiratory rate 16 /min 16 /min MEDENT ( [facility] ) Patient Treatment Plan of Care Planned Activity Planned Date Details Description Data Source (s) 200 ACTUAT Albuterol 0.09 MG/ACTUAT Dry Powder Inhaler [[facility]Air] 01/26/2021 12:00:00 AM EST W ([facility]) 200 ACTUAT Albuterol 0.09 MG/ACTUAT Dry Powder Inhaler [ProAir] 01/26/2021 12:00:00 AM EST [email or web address] ([facility])
== END 2021-09-23 17:21 | disposition left against medical advice (07) ==
LOC: M ED 14:13
DX: Z53.29 Procedure and treatment not carried out because of patient's decision for other reasons (principal)

== ENCOUNTER → 2021-09-24 | Outpatient (CLI) | payer BC, OTHER ==
[~2021-09-24] MED LIST changes: +CLOP75TA2; +HYDR-3490
--- NOTE | 2021-09-24 13:28 | REP ---
INDICATION: PAIN IN LEFT KNEE COMPARISON: None TECHNIQUE: Five views FINDINGS: There is tricompartmental marginal osteophytosis and tricompartmental narrowing particularly affecting the medial compartment and patellofemoral joint. There is no evidence of an acute fracture, dislocation, or subluxation. IMPRESSION: Chronic changes as described above. <Electronically signed by Alex Wilkes > 09/24/21 1975
== END ==
LOC: M PLAIMG 12:23
PROVIDERS: ATTEND Physician Assistant
DX: M25.762 Osteophyte, left knee (principal); M17.12 Unilateral primary osteoarthritis, left knee

== ENCOUNTER → 2021-10-11 | Outpatient (CLI) | payer BC, OTHER ==
--- NOTE | 2021-10-11 16:08 | REP ---
INDICATION: LT KNEE PAIN. COMPARISON: None. TECHNIQUE: Standing bilateral AP view of the knees FINDINGS: There is bicompartmental narrowing and bicompartmental subchondral sclerosis and marginal osteophytosis involving the left knee. There is lateral compartmental narrowing with subchondral sclerosis involving the right knee with bicompartmental marginal osteophytosis. IMPRESSION: Chronic changes as described above. <Electronically signed by Alex Wilkes > 10/11/21 [id number]
== END ==
LOC: M SOG 10:38
PROVIDERS: ATTEND Orthopaedic Surgery Adult Reconstructive Orthopaedic Surgery
DX: M25.562 Pain in left knee (principal); M17.0 Bilateral primary osteoarthritis of knee; M25.761 Osteophyte, right knee; M25.762 Osteophyte, left knee

== ENCOUNTER → 2021-12-26 | Outpatient (REF) | payer BC, OTHER ==
[2021-12-26 12:35] LABS: HEMATOCRIT 42.7 % (36.0-47.0); MEAN CORPUSCULAR HEMOGLOBIN 30.6 pg (27.0-33.0); MEAN CORPUSCULAR HGB CONC 32.8 g/dl (32.0-36.5); MEAN CORPUSCULAR VOLUME 93.2 fl (80.0-96.0); PLATELET COUNT, AUTOMATED 282 10^3/uL (150-450); RED BLOOD COUNT 4.58 10^6/uL (4.00-5.40); WHITE BLOOD COUNT 11.6 10^3/uL (4.0-10.0)
[2021-12-26 13:09] LABS: CHOLESTEROL RISK RATIO 3.016 (<5)
[2021-12-26 13:15] LABS: PTH INTACT 48.5 PG/ML (18.5-88.0); TOTAL 25(OH) VITAMIN D 63.9 NG/ML (30.0-100.0)
[2021-12-26 14:07] LABS: HEMOGLOBIN A1c 5.8 %
== END ==
LOC: M LABDRWAD 12:15
PROVIDERS: ATTEND Physician Assistant Medical
DX: I10 Essential (primary) hypertension (principal); E78.5 Hyperlipidemia, unspecified; R73.01 Impaired fasting glucose; E55.9 Vitamin D deficiency, unspecified

== ENCOUNTER → 2022-01-16 | Outpatient (CLI) | payer BC, OTHER | LOC: M WHC 11:57 | PROVIDERS: ATTEND Physician Assistant Medical | DX: Z12.31 Encounter for screening mammogram for malignant neoplasm of breast (principal); Z80.3 Family history of malignant neoplasm of breast ==

== ENCOUNTER → 2022-01-24 | Outpatient (CLI) | payer BC, OTHER | LOC: M SLEEP 20:00 | PROVIDERS: ATTEND Physician Assistant | DX: G47.33 Obstructive sleep apnea (adult) (pediatric) (principal) ==

== ENCOUNTER → 2022-01-28 | Outpatient (CLI) | payer BC, OTHER | LOC: M RAD 10:55 | PROVIDERS: ATTEND Physician Assistant Medical | DX: I65.22 Occlusion and stenosis of left carotid artery (principal) ==

== ENCOUNTER 2022-03-19 05:23 | Observation (INO) | payer BC, OTHER ==
[~2022-03-19] VITALS: Ht 170.2 cm; Wt 101.3 kg
[~2022-03-19 05:23] MED LIST changes: -ALBU8.5H; +ALBU8.5H PO
[2022-03-19] MEDS ORDERED: IPRATROPIUM 0.5MG/ALBUTEROL 2.5MG INH SOL UD 3ML (DUONEB) NEB ONE ×2 (05:45→08:30)
[2022-03-19 06:13] LABS: BASO # 0.1 10^3/uL (0.0-0.2); BASO % 0.4 % (0.0-1.0); EOS # 0.1 10^3/uL (0.0-0.5); EOS % 0.5 % (0.0-3.0); HEMATOCRIT 38.4 % (36.0-47.0); HEMOGLOBIN 12.2 g/dl (12.0-15.5); LYMPH # 0.8 10^3/uL (1.5-5.0); LYMPH % 5.8 % (24.0-44.0); MEAN CORPUSCULAR HEMOGLOBIN 30.1 pg (27.0-33.0); MEAN CORPUSCULAR HGB CONC 31.8 g/dl (32.0-36.5); MEAN CORPUSCULAR VOLUME 94.8 fl (80.0-96.0); MONO # 0.7 10^3/uL (0.0-0.8); MONO % 4.9 % (2.0-8.0); NEUTROPHILS # 12.3 10^3/uL (1.5-8.5); NEUTROPHILS % 87.9 % (36.0-66.0); PLATELET COUNT, AUTOMATED 233 10^3/uL (150-450); RED BLOOD COUNT 4.05 10^6/uL (4.00-5.40)
[2022-03-19 06:20] LABS: ABG BASE EXCESS -2.1 (-2.0-2.0); ABG HCO3 22.5 MEQ/L (22.0-26.0); ABG O2 SATURATION 97.5 % (95.0-99.0); ABG PARTIAL PRESSURE CO2 37.8 mmHg (35.0-45.0); ABG PARTIAL PRESSURE O2 95.8 mmHg (75.0-100.0); ABG STANDARD HCO3 22.7 MEQ/L (22.0-26.0); ABG TOTAL CO2 23.6 MEQ/L (23.0-31.0); ABG pH (ARTERIAL) 7.392 UNITS (7.350-7.450)
[2022-03-19 06:38] LABS: BLOOD UREA NITROGEN 15 MG/DL (7-18); CARBON DIOXIDE LEVEL 26 MEQ/L (21-32); CHLORIDE LEVEL 108 MEQ/L (98-107); CREATININE FOR GFR 0.68 MG/DL (0.55-1.30); GLOMERULAR FILTRATION RATE > 60.0 (>45); GLUCOSE, FASTING 183 MG/DL (70-100); MAGNESIUM LEVEL 2.2 MG/DL (1.8-2.4); POTASSIUM SERUM 4.1 MEQ/L (3.5-5.1); SODIUM LEVEL 139 MEQ/L (136-145)
[2022-03-19 06:41] LABS: CK-MB VALUE MASS 1.8 NG/ML (<3.6); MB/CK RELATIVE INDEX 1.76 (< OR =4)
[2022-03-19] MEDS ORDERED: BENZONATATE 100MG CAPSULE PO ONE (11:25)
[2022-03-19] MEDS ORDERED: MAALOX 30 ML SUSP *UDC PO PRN (11:25)
[2022-03-19] MEDS ORDERED: GLUCOSE 4GM CHEW TABLET PO PRN (11:25)
[2022-03-19] MEDS ORDERED: GLUCAGON INJ 1MG VIAL SC PRN (11:25)
[2022-03-19] MEDS ORDERED: ACETAMINOPHEN TAB 650MG DOSE (2X325MG) PO PRN (11:25)
[2022-03-19] MEDS ORDERED: DEXTROSE 50% 50 ML SYRINGE IV PRN (11:25)
[2022-03-19] MEDS ORDERED: MOM 30ML SUSPENSION UDC PO PRN (11:25)
[2022-03-19] MEDS ORDERED: HYDR-3490 PO (11:36)
[2022-03-19] MEDS ORDERED: HOME MED LIST COMPLETE! XX SCH (11:40)
[2022-03-19] MEDS: HumaLOG INSULIN (NovoLOG) PER UNIT SC SCH ×2 (12:29→18:08)
[2022-03-19] MEDS: DOCUSATE SODIUM 100MG CAPSULE PO SCH ×2 (12:30→20:18)
[2022-03-19] MEDS: guaiFENesin ER 600 MG TAB PO SCH ×2 (12:30→20:18)
[2022-03-19] MEDS: ADVAIR HFA 45/21MCG INHALER INH SCH ×2 (12:43→20:06)
[2022-03-19] MEDS: IPRATROPIUM 0.5MG/ALBUTEROL 2.5MG INH SOL UD 3ML (DUONEB) NEB SCH ×2 (13:44→20:00)
[2022-03-19] MEDS ORDERED: LEVALBUTEROL 1.25 MG/0.5 ML CONCENTRATE NEB NEB PRN (15:00)
[2022-03-19 15:05] VITALS: BP 138/74
[2022-03-19 18:00] VITALS: BP 127/62
[2022-03-19] MEDS: HEPARIN SOD (PORCINE) 5000UNITS/ML 1ML VIAL/SYRINGE SQ SCH (20:20)
[2022-03-19] MEDS ORDERED: HumaLOG INSULIN (NovoLOG) PER UNIT SC SCH (21:00)
[2022-03-19 21:50] VITALS: BP 123/63
[2022-03-20] MEDS: IPRATROPIUM 0.5MG/ALBUTEROL 2.5MG INH SOL UD 3ML (DUONEB) NEB SCH ×2 (02:59→07:27)
[2022-03-20 04:58] VITALS: BP 135/78
[2022-03-20] MEDS: HEPARIN SOD (PORCINE) 5000UNITS/ML 1ML VIAL/SYRINGE SQ SCH (05:34)
[2022-03-20 06:28] LABS: BASO % 0.1 % (0.0-1.0); HEMOGLOBIN 11.5 g/dl (12.0-15.5); LYMPH % 8.4 % (24.0-44.0); MEAN CORPUSCULAR HGB CONC 31.1 g/dl (32.0-36.5); MEAN CORPUSCULAR VOLUME 93.4 fl (80.0-96.0); MONO # 0.9 10^3/uL (0.0-0.8); MONO % 7.7 % (2.0-8.0); NEUTROPHILS % 83.3 % (36.0-66.0); PLATELET COUNT, AUTOMATED 229 10^3/uL (150-450); RED BLOOD COUNT 3.96 10^6/uL (4.00-5.40)
[2022-03-20 06:51] LABS: BLOOD UREA NITROGEN 18 MG/DL (7-18); CALCIUM LEVEL 9.2 MG/DL (8.8-10.2); CARBON DIOXIDE LEVEL 29 MEQ/L (21-32); CHLORIDE LEVEL 108 MEQ/L (98-107); CREATININE FOR GFR 0.65 MG/DL (0.55-1.30); GLOMERULAR FILTRATION RATE > 60.0 (>45); GLUCOSE, FASTING 136 MG/DL (70-100); POTASSIUM SERUM 4.5 MEQ/L (3.5-5.1); SODIUM LEVEL 141 MEQ/L (136-145)
[2022-03-20] MEDS: ADVAIR HFA 45/21MCG INHALER INH SCH (07:28)
[2022-03-20] MEDS: HumaLOG INSULIN (NovoLOG) PER UNIT SC SCH ×2 (07:47→12:00)
[2022-03-20] MEDS: guaiFENesin ER 600 MG TAB PO SCH (07:48)
[2022-03-20] MEDS: DOCUSATE SODIUM 100MG CAPSULE PO SCH (07:49)
[2022-03-20] MEDS ORDERED: CLOPIDOGREL 75 MG TAB PO SCH (09:00)
[2022-03-20] MEDS ORDERED: ATORVASTATIN 20 MG TAB PO SCH (09:00)
[2022-03-20] MEDS ORDERED: ASPIRIN 81MG ENTERIC TABLET PO SCH (09:00)
[2022-03-20 09:02] LABS: HEMOGLOBIN A1c 5.7 %
[2022-03-20] MEDS ORDERED: MUCI600T31 PO (11:52)
== END 2022-03-20 13:36 | disposition home or self-care (01) ==
LOC: EDBD 05:23 → M ED 05:23 → M ED INP 11:25 → M MSPAV 15:05
PROVIDERS: ADMIT Internal Medicine; ATTEND Internal Medicine
DX: J20.6 Acute bronchitis due to rhinovirus (principal); B97.29 Other coronavirus as the cause of diseases classified elsewhere; R06.02 Shortness of breath; I10 Essential (primary) hypertension; R73.03 Prediabetes; E78.5 Hyperlipidemia, unspecified; Z86.73 Personal history of transient ischemic attack (TIA), and cerebral infarction without residual deficits; E55.9 Vitamin D deficiency, unspecified; M19.90 Unspecified osteoarthritis, unspecified site; I65.21 Occlusion and stenosis of right carotid artery; Z87.891 Personal history of nicotine dependence; Z96.641 Presence of right artificial hip joint; Z79.899 Other long term (current) drug therapy; Z79.84 Long term (current) use of oral hypoglycemic drugs; Z79.02 Long term (current) use of antithrombotics/antiplatelets; Z79.82 Long term (current) use of aspirin
CPT/HCPCS: 36415; 36600; 71045; 80048; 82550; 82553; 82803; 83036; 83735; 84484; 85025; 87798; 93005; 93041; 94640; 94760; 96372; 99285; J1644; J1815

== ENCOUNTER → 2022-06-04 | Outpatient (CLI) | payer BC, OTHER ==
[~2022-06-04] MED LIST changes: +HYDR-3490 PO; +MUCI600T31 PO
== END ==
LOC: M CARPUL 14:24
PROVIDERS: ATTEND Physician Assistant
DX: R06.00 Dyspnea, unspecified (principal)

== ENCOUNTER → 2022-06-17 | Outpatient (CLI) | payer BC, OTHER | LOC: M RAD 06:40 | PROVIDERS: ATTEND Physician Assistant | DX: Z87.891 Personal history of nicotine dependence (principal); R91.8 Other nonspecific abnormal finding of lung field ==

== ENCOUNTER → 2022-09-02 | Outpatient (CLI) | payer OTHER, BC ==
[2022-09-02 17:00] LABS: HEMATOCRIT 40.1 % (36.0-47.0)
[2022-09-02 17:02] LABS: BASO # 0.1 10^3/uL (0.0-0.2); BASO % 0.6 % (0.0-1.0); EOS # 0.3 10^3/uL (0.0-0.5); EOS % 3.1 % (0.0-3.0); HEMATOCRIT 41.8 % (36.0-47.0); HEMOGLOBIN 12.8 g/dl (12.0-15.5); LYMPH # 2.2 10^3/uL (1.5-5.0); LYMPH % 26.6 % (24.0-44.0); MEAN CORPUSCULAR HEMOGLOBIN 29.2 pg (27.0-33.0); MEAN CORPUSCULAR HGB CONC 30.6 g/dl (32.0-36.5); MEAN CORPUSCULAR VOLUME 95.2 fl (80.0-96.0); MONO # 0.9 10^3/uL (0.0-0.8); MONO % 10.6 % (2.0-8.0); NEUTROPHILS # 4.8 10^3/uL (1.5-8.5); NEUTROPHILS % 58.6 % (36.0-66.0); PLATELET COUNT, AUTOMATED 263 10^3/uL (150-450); RED BLOOD COUNT 4.39 10^6/uL (4.00-5.40); WHITE BLOOD COUNT 8.2 10^3/uL (4.0-10.0)
[2022-09-02 17:24] LABS: ALBUMIN 3.6 GM/DL (3.2-5.2); ALT/SGPT 32 U/L (12-78); BILIRUBIN,TOTAL 0.3 MG/DL (0.2-1.0); BLOOD UREA NITROGEN 21 MG/DL (7-18); CALCIUM LEVEL 9.5 MG/DL (8.8-10.2); CARBON DIOXIDE LEVEL 30 MEQ/L (21-32); CHLORIDE LEVEL 104 MEQ/L (98-107); CREATININE FOR GFR 0.76 MG/DL (0.55-1.30); FERRITIN 86 NG/ML (8-252); GLOMERULAR FILTRATION RATE > 60.0 (>45); GLUCOSE, FASTING 86 MG/DL (70-100); IRON (FE) 73 UG/DL (50-170); POTASSIUM SERUM 4.2 MEQ/L (3.5-5.1); SODIUM LEVEL 139 MEQ/L (136-145); TOTAL PROTEIN 7.1 GM/DL (6.4-8.2)
[2022-09-02 17:46] LABS: VITAMIN B12 LEVEL 555 PG/ML (247-911)
== END ==
LOC: M PLALAB 15:18
PROVIDERS: ATTEND Physician Assistant Medical
DX: D64.9 Anemia, unspecified (principal)

== ENCOUNTER → 2022-12-09 | Outpatient (CLI) | payer BC, OTHER ==
[~2022-12-09] MED LIST changes: +CLOP75TA99 PO; -PLAV1TAB2 PO
== END ==
LOC: M RAD 13:01
PROVIDERS: ATTEND Physician Assistant
DX: R91.8 Other nonspecific abnormal finding of lung field (principal); E27.9 Disorder of adrenal gland, unspecified

== ENCOUNTER → 2023-01-20 | Outpatient (CLI) | payer BC, OTHER | LOC: M WHC 09:22 | PROVIDERS: ATTEND Physician Assistant Medical | DX: Z12.31 Encounter for screening mammogram for malignant neoplasm of breast (principal) ==

== ENCOUNTER → 2023-01-29 | Outpatient (CLI) | payer BC, OTHER | LOC: M RAD 12:56 | PROVIDERS: ATTEND Physician Assistant | DX: I65.23 Occlusion and stenosis of bilateral carotid arteries (principal) ==

== ENCOUNTER → 2023-03-05 | Outpatient (CLI) | payer BC, OTHER ==
[2023-03-05 15:46] LABS: CPK CREATINE PHOSPHOKINASE 92 U/L (34-145)
[2023-03-05 15:59] LABS: ALBUMIN 3.6 G/DL (3.2-5.2); ALKALINE PHOSPHATASE 136 U/L (46-116); ALT/SGPT 27 U/L (7.0-40); AST/SGOT < 8 U/L (<34); BILIRUBIN,TOTAL 0.4 MG/DL (0.3-1.2); BLOOD UREA NITROGEN 15 MG/DL (9-23); CALCIUM LEVEL 9.5 MG/DL (8.3-10.6); CARBON DIOXIDE LEVEL 31 MMOL/L (20-31); CHLORIDE LEVEL 105 MMOL/L (98-107); CHOLESTEROL LEVEL 176 MG/DL (<200); CHOLESTEROL RISK RATIO 3.29 (<5); CREATININE FOR GFR 0.65 MG/DL (0.55-1.30); GLOMERULAR FILTRATION RATE > 60.0 (>45); GLUCOSE, FASTING 127 MG/DL (74-106); HDL CHOLESTEROL 53.4 MG/DL (>40); NON-HDL-C 122.6 MG/DL; POTASSIUM SERUM 4.2 MMOL/L (3.5-5.1); SODIUM LEVEL 141 MMOL/L (136-145); TOTAL PROTEIN 6.9 G/DL (5.7-8.2); TRIGLYCERIDES LEVEL 213 MG/DL (<150)
[2023-03-05 16:13] LABS: HEMOGLOBIN A1c 6.1 % (4.0-6.0)
[2023-03-05 16:37] LABS: PTH INTACT 51.6 PG/ML (18.5-88.0)
== END ==
LOC: M PLALAB 14:19
PROVIDERS: ATTEND Physician Assistant Medical
DX: E55.9 Vitamin D deficiency, unspecified (principal); E78.5 Hyperlipidemia, unspecified; R73.01 Impaired fasting glucose

== ENCOUNTER → 2023-06-11 | Outpatient (REF) | payer BC, OTHER ==
[2023-06-11 13:09] LABS: BLOOD UREA NITROGEN 17 MG/DL (9-23); CREATININE FOR GFR 0.61 MG/DL (0.55-1.30); GLOMERULAR FILTRATION RATE > 60.0 (>45)
== END ==
LOC: M LABDRWAD 12:14
DX: I65.23 Occlusion and stenosis of bilateral carotid arteries (principal)

== ENCOUNTER → 2023-10-07 | Outpatient (REF) | payer OTHER ==
[2023-10-07 14:35] LABS: BASO # 0.1 10^3/uL (0.0-0.2); BASO % 0.6 % (0.0-1.0); EOS # 0.3 10^3/uL (0.0-0.5); EOS % 3.3 % (0.0-3.0); HEMATOCRIT 41.8 % (36.0-47.0); HEMOGLOBIN 12.9 g/dl (12.0-15.5); LYMPH % 24.8 % (24.0-44.0); MEAN CORPUSCULAR HEMOGLOBIN 30.4 pg (27.0-33.0); MEAN CORPUSCULAR HGB CONC 30.9 g/dl (32.0-36.5); MEAN CORPUSCULAR VOLUME 98.4 fl (80.0-96.0); MONO # 0.9 10^3/uL (0.0-0.8); MONO % 11.3 % (2.0-8.0); NEUTROPHILS # 4.8 10^3/uL (1.5-8.5); NEUTROPHILS % 59.7 % (36.0-66.0); PLATELET COUNT, AUTOMATED 254 10^3/uL (150-450); RED BLOOD COUNT 4.25 10^6/uL (4.00-5.40)
[2023-10-07 14:55] LABS: ALBUMIN 3.4 G/DL (3.2-5.2); ALKALINE PHOSPHATASE 108 U/L (46-116); ALT/SGPT 22 U/L (7.0-40); AST/SGOT 12 U/L (<34); BILIRUBIN,TOTAL 0.4 MG/DL (0.3-1.2); BLOOD UREA NITROGEN 18 MG/DL (9-23); CALCIUM LEVEL 9.2 MG/DL (8.3-10.6); CARBON DIOXIDE LEVEL 29 MMOL/L (20-31); CHLORIDE LEVEL 103 MMOL/L (98-107); CHOLESTEROL LEVEL 188 MG/DL (<200); CHOLESTEROL RISK RATIO 2.96 (<5); CREATININE FOR GFR 0.62 MG/DL (0.55-1.30); GLOMERULAR FILTRATION RATE > 60.0 (>45); GLUCOSE, FASTING 111 MG/DL (74-106); HDL CHOLESTEROL 63.4 MG/DL (>40); NON-HDL-C 124.6 MG/DL; POTASSIUM SERUM 4.7 MMOL/L (3.5-5.1); SODIUM LEVEL 139 MMOL/L (136-145); TOTAL PROTEIN 6.8 G/DL (5.7-8.2); TRIGLYCERIDES LEVEL 188 MG/DL (<150)
[2023-10-07 15:02] LABS: CPK CREATINE PHOSPHOKINASE 75 U/L (34-145)
[2023-10-07 15:04] LABS: HEMOGLOBIN A1c 5.9 % (4.0-6.0)
== END ==
LOC: M SFHCADAM 08:02
PROVIDERS: ATTEND Physician Assistant Medical
DX: R73.01 Impaired fasting glucose (principal); E78.5 Hyperlipidemia, unspecified; I10 Essential (primary) hypertension

== ENCOUNTER → 2024-01-15 | Outpatient (CLI) | payer BC, OTHER | LOC: M RAD 14:54 | PROVIDERS: ATTEND Physician Assistant | DX: Z12.2 Encounter for screening for malignant neoplasm of respiratory organs (principal); Z87.891 Personal history of nicotine dependence ==

== ENCOUNTER → 2024-02-23 | Outpatient (CLI) | payer BC | LOC: M PLARAD 08:01 | PROVIDERS: ATTEND Physician Assistant | DX: R91.8 Other nonspecific abnormal finding of lung field (principal) | CPT/HCPCS: 78815; A9552 ==

== ENCOUNTER → 2024-03-03 | Outpatient (CLI) | payer BC ==
[2024-03-03 15:45] LABS: BASO # 0.1 10^3/uL (0.0-0.2); BASO % 0.7 % (0.0-1.0); EOS # 0.2 10^3/uL (0.0-0.5); EOS % 2.3 % (0.0-3.0); HEMATOCRIT 40.8 % (36.0-47.0); HEMOGLOBIN 12.7 g/dl (12.0-15.5); LYMPH # 2.2 10^3/uL (1.5-5.0); LYMPH % 26.9 % (24.0-44.0); MEAN CORPUSCULAR HEMOGLOBIN 29.9 pg (27.0-33.0); MEAN CORPUSCULAR HGB CONC 31.1 g/dl (32.0-36.5); MONO # 0.7 10^3/uL (0.0-0.8); NEUTROPHILS % 61.9 % (36.0-66.0); PLATELET COUNT, AUTOMATED 258 10^3/uL (150-450); RED BLOOD COUNT 4.25 10^6/uL (4.00-5.40); WHITE BLOOD COUNT 8.1 10^3/uL (4.0-10.0)
[2024-03-03 16:00] LABS: HEMOGLOBIN A1c 5.8 % (4.0-6.0)
[2024-03-03 16:06] LABS: ALBUMIN 3.5 G/DL (3.2-5.2); ALKALINE PHOSPHATASE 91 U/L (46-116); ALT/SGPT 25 U/L (7.0-40); AST/SGOT 15 U/L (<34); BILIRUBIN,TOTAL 0.3 MG/DL (0.3-1.2); BLOOD UREA NITROGEN 19 MG/DL (9-23); CALCIUM LEVEL 9.3 MG/DL (8.3-10.6); CARBON DIOXIDE LEVEL 32 MMOL/L (20-31); CHLORIDE LEVEL 103 MMOL/L (98-107); CREATININE FOR GFR 0.67 MG/DL (0.55-1.30); GLOMERULAR FILTRATION RATE > 60.0 (>45); GLUCOSE, FASTING 142 MG/DL (74-106); IRON (FE) 68 UG/DL (50-170); POTASSIUM SERUM 4.4 MMOL/L (3.5-5.1); SODIUM LEVEL 141 MMOL/L (136-145); TOTAL PROTEIN 6.8 G/DL (5.7-8.2)
[2024-03-03 16:10] LABS: FERRITIN 87.1 NG/ML (7.3-270.7); TOTAL 25(OH) VITAMIN D 66.5 NG/ML (20.0-100.0)
[2024-03-03 16:50] LABS: PTH INTACT 60.3 PG/ML (18.5-88.0)
== END ==
LOC: M PLALAB 13:47
PROVIDERS: ATTEND Physician Assistant Medical
DX: E55.9 Vitamin D deficiency, unspecified (principal); R73.01 Impaired fasting glucose; D64.9 Anemia, unspecified

== ENCOUNTER → 2024-07-01 | Outpatient (CLI) | payer BC | LOC: M RAD 15:57 | PROVIDERS: ATTEND Physician Assistant | DX: I65.29 Occlusion and stenosis of unspecified carotid artery (principal) ==

== ENCOUNTER → 2025-03-03 | Outpatient (CLI) | payer MEDICARE, BC | LOC: M RAD 14:31 | PROVIDERS: ATTEND Physician Assistant | DX: Z12.2 Encounter for screening for malignant neoplasm of respiratory organs (principal); Z87.891 Personal history of nicotine dependence; R91.1 Solitary pulmonary nodule; I70.0 Atherosclerosis of aorta; I25.10 Atherosclerotic heart disease of native coronary artery without angina pectoris; D35.02 Benign neoplasm of left adrenal gland ==

== ENCOUNTER → 2025-03-04 | Outpatient (CLI) | payer MEDICARE, BC ==
[2025-03-04 15:52] LABS: BASO # 0.1 10^3/uL (0.0-0.2); BASO % 0.6 % (0.0-1.0); EOS # 0.2 10^3/uL (0.0-0.5); EOS % 1.8 % (0.0-3.0); HEMATOCRIT 41.3 % (36.0-47.0); HEMOGLOBIN 12.7 g/dl (12.0-15.5); LYMPH # 2.6 10^3/uL (1.5-5.0); LYMPH % 29.6 % (24.0-44.0); MEAN CORPUSCULAR HEMOGLOBIN 29.5 pg (27.0-33.0); MEAN CORPUSCULAR HGB CONC 30.8 g/dl (32.0-36.5); MEAN CORPUSCULAR VOLUME 95.8 fl (80.0-96.0); MONO % 11.3 % (2.0-8.0); NEUTROPHILS # 4.9 10^3/uL (1.5-8.5); NEUTROPHILS % 56.5 % (36.0-66.0); PLATELET COUNT, AUTOMATED 298 10^3/uL (150-450); RED BLOOD COUNT 4.31 10^6/uL (4.00-5.40); WHITE BLOOD COUNT 8.8 10^3/uL (4.0-10.0)
[2025-03-04 16:05] LABS: HEMOGLOBIN A1c 6.2 % (4.0-6.0)
[2025-03-04 16:12] LABS: ALBUMIN 3.8 G/DL (3.2-5.2); ALKALINE PHOSPHATASE 82 U/L (35-104); ALT/SGPT 22 U/L (7.0-40); AST/SGOT 15 U/L (<34); BILIRUBIN,TOTAL 0.4 MG/DL (0.3-1.2); BLOOD UREA NITROGEN 19 MG/DL (9-23); CALCIUM LEVEL 9.4 MG/DL (8.3-10.6); CARBON DIOXIDE LEVEL 30 MMOL/L (20-31); CHLORIDE LEVEL 102 MMOL/L (98-107); CHOLESTEROL LEVEL 184 MG/DL (<200); CHOLESTEROL RISK RATIO 3.11 (<5); CREATININE FOR GFR 0.67 MG/DL (0.55-1.30); GLOMERULAR FILTRATION RATE > 90.0 (>45); GLUCOSE, FASTING 77 MG/DL (74-106); PTH INTACT 65.6 PG/ML (18.5-88.0); SODIUM LEVEL 139 MMOL/L (136-145); TOTAL PROTEIN 7.3 G/DL (5.7-8.2); TRIGLYCERIDES LEVEL 260 MG/DL (<150)
[2025-03-04 16:14] LABS: TOTAL 25(OH) VITAMIN D 81.3 NG/ML (20.0-100.0)
== END ==
LOC: M PLALAB 13:53
PROVIDERS: ATTEND Physician Assistant Medical
DX: E78.5 Hyperlipidemia, unspecified (principal); I10 Essential (primary) hypertension; E55.9 Vitamin D deficiency, unspecified; R73.01 Impaired fasting glucose

== ENCOUNTER → 2025-07-12 | Outpatient (CLI) | payer MEDICARE, BC ==
[~2025-07-12] MED LIST changes: -RA T500C2 PO; +TURM500C10 PO
== END ==
LOC: M WHC 13:44
PROVIDERS: ATTEND Physician Assistant Medical
DX: Z12.31 Encounter for screening mammogram for malignant neoplasm of breast (principal); Z13.820 Encounter for screening for osteoporosis; M85.852 Other specified disorders of bone density and structure, left thigh; Z96.641 Presence of right artificial hip joint

== ENCOUNTER → 2025-08-03 | Outpatient (CLI) | payer MEDICARE, BC | LOC: M SOG 06:58 | PROVIDERS: ATTEND Neuromusculoskeletal Medicine, Sports Medicine | DX: M17.0 Bilateral primary osteoarthritis of knee (principal) ==

== ENCOUNTER → 2025-08-31 | Outpatient (CLI) | payer MEDICARE, BC ==
[2025-09-06 16:21] LABS: METANEPHRINE PLASMA < 25 pg/mL (<=57); NORMETANEPHRINE PLASMA 51 pg/mL (<=148); TOTAL FREE 51 pg/mL (<=205)
== END ==
LOC: M LAB 09:03
PROVIDERS: ATTEND Physician Assistant Medical
DX: Q89.1 Congenital malformations of adrenal gland (principal)